=== PATIENT | female | born 1975 | race Caucasian/White ===

== ENCOUNTER 2017-09-15 16:12 | Emergency (ER) | payer SELFPAY ==
[2017-09-15 16:13] VITALS: BP 129/77; PULSE 87; RESP 20; TEMP 36.7; O2SAT 97; BMI 21.9
--- NOTE | 2017-09-15 16:22 | HMH.EDCP ---
ED Disposition Clinical Impression: Acute bronchitis, Tobacco use, Lung nodule seen on imaging study, Cough Disposition: Home, Self-Care Condition on Discharge: Fair Additional Instructions: 1- follow up with pcp in am on your lung nodule, this will need work up to exclude cancer. 2- z pack. 3- tessalon 4- motrin 5- stop smoking. 6- retrun if needed. Prescriptions: Benzonatate [Tessalon Perle 100mg Cap] 200 mg PO Q4HP PRN #30 cap PRN Reason: Cough Ibuprofen [Motrin 600mg Tablet] 600 mg PO Q6HP PRN #20 tab PRN Reason: Moderate Pain Azithromycin [Zithromax 250mg tab] 250 mg PO DIRECTED #6 tab Referrals: Jo Belle [Primary Care Provider] - - Critical Care Critical Care Time: No Attestation: On , the high probability of a clinically significant, sudden or life threatening deterioration of the following system(s) required my full and direct attention, intervention and personal management. The time I documented below is in addition to time spent performing reported procedures but includes the following listed in this critical care notation. Medical Decision Making Vital Signs: 09/15/17 16:13 Temperature 98.1 F Temperature Source Tympanic Pulse Rate [Left Radial] 87 Respiratory Rate 20 Blood Pressure [Right Arm] 129/77 Blood Pressure Mean [Right Arm] 94 Blood Pressure Source [Right Arm] Automatic Cuff Blood Pressure Position [Right Arm] Sitting 02 Sat by Pulse Oximetry 97 Oxygen Delivery Method Room Air Orders (Tests/Meds): ED MEDICATIONS Discontinued Medications Generic Name Dose Route Start Last Admin Trade Name Freq PRN Reason Stop Dose Admin Hydrocodone Bitart/Acetaminophen 1 tab 09/15/17 16:46 09/15/17 17:45 Pool 5/325mg Tablet PO 09/15/17 16:47 1 tab ONCE ONE Administration - Mango Inquiry Pt receiving controlled substance: No Mango was queried for this patient: No Medical Decision Making Narrative: The patient was given Lortab for pain. She has been coughing lately especially in the mornings. 1750 I received a fax from [facility] with the lab results which was negative troponin for myocardial injury. Also she did have a negative CT scan for pulmonary embolism. It was positive for 3 mm nodule in the right middle lobe. Patient was given copy of her CT scan to handle her primary care physician for follow-up purposes. She was informed that this can be cancer and the need to be followed up on. She was informed that she needs to stop smoking. We discussed differential diagnosis for other reasons of her chest pain, can be musculoskeletal pleurisy or shingles. She agreed to start on antibiotics use the nonsteroidal anti-inflammatories and follow-up with a primary care physician until she improves. Chest Pain HPI - General Stated Complaint: Pain in right shoulder pain, no accident - History of Present Illness HPI narrative: 42 years old white female smoker with no significant past medical history. Yesterday at 8 PM, She developed right paraspinal pain that moved to the front of her chest this morning at the right 2nd costosternal junction. She reports that the pain is worse upon standing and is better by leaning forward. She has no shortness of breath she has no palpitations except with anxiety. She denies having hemoptysis coffee-ground emesis bleeding per rectum or melanotic. She had a history of lumbar discectomy. I can hear her having repeated dry non productive cough. complaint: other Onset (ago): hour(s) Time: 08:00 Duration: constant Activity at onset: during rest, awoke with symptoms Pain location: other (Right thoracic paraspinal) Severity: moderate Quality: sharp Relieving factors: leaning forward Exacerbating factors: other (standing. ) Risk Factors for CAD: Smoking Treatments prior to or on arrival for Cardiac Chest Pain: other (She took ibuprofen. ) - Related Data Previous Rx's Medication Ins
--- NOTE | 2017-09-15 16:26 | ED_ITS ---
ED Disposition Clinical Impression: Acute bronchitis, Tobacco use, Lung nodule seen on imaging study, Cough Disposition: Home, Self-Care Condition on Discharge: Fair Additional Instructions: 1- follow up with pcp in am on your lung nodule, this will need work up to exclude cancer. 2- z pack. 3- tessalon 4- motrin 5- stop smoking. 6- retrun if needed. Prescriptions: Benzonatate [Tessalon Perle 100mg Cap] 200 mg PO Q4HP PRN #30 cap PRN Reason: Cough Ibuprofen [Motrin 600mg Tablet] 600 mg PO Q6HP PRN #20 tab PRN Reason: Moderate Pain Azithromycin [Zithromax 250mg tab] 250 mg PO DIRECTED #6 tab Referrals: Jo Belle [Primary Care Provider] - - Critical Care Critical Care Time: No Attestation: On , the high probability of a clinically significant, sudden or life threatening deterioration of the following system(s) required my full and direct attention, intervention and personal management. The time I documented below is in addition to time spent performing reported procedures but includes the following listed in this critical care notation. Medical Decision Making Vital Signs: 09/15/17 16:13 Temperature 98.1 F Temperature Source Tympanic Pulse Rate [Left Radial] 87 Respiratory Rate 20 Blood Pressure [Right Arm] 129/77 Blood Pressure Mean [Right Arm] 94 Blood Pressure Source [Right Arm] Automatic Cuff Blood Pressure Position [Right Arm] Sitting 02 Sat by Pulse Oximetry 97 Oxygen Delivery Method Room Air Orders (Tests/Meds): ED MEDICATIONS Discontinued Medications Generic Name Dose Route Start Last Admin Trade Name Freq PRN Reason Stop Dose Admin Hydrocodone Bitart/Acetaminophen 1 tab 09/15/17 16:46 09/15/17 17:45 [place]pler 5/325mg Tablet PO 09/15/17 16:47 1 tab ONCE ONE Administration - Mango Inquiry Pt receiving controlled substance: No Mango was queried for this patient: No Medical Decision Making Narrative: The patient was given Lortab for pain. She has been coughing lately especially in the mornings. 1750 I received a fax from [facility] with the lab results which was negative troponin for myocardial injury. Also she did have a negative CT scan for pulmonary embolism. It was positive for 3 mm nodule in the right middle lobe. Patient was given copy of her CT scan to handle her primary care physician for follow-up purposes. She was informed that this can be cancer and the need to be followed up on. She was informed that she needs to stop smoking. We discussed differential diagnosis for other reasons of her chest pain, can be musculoskeletal pleurisy or shingles. She agreed to start on antibiotics use the nonsteroidal anti-inflammatories and follow-up with a primary care physician until she improves. Chest Pain HPI - General Stated Complaint: Pain in right shoulder pain, no accident - History of Present Illness HPI narrative: 42 years old white female smoker with no significant past medical history. Yesterday at 8 PM, She developed right paraspinal pain that moved to the front of her chest this morning at the right 2nd costosternal junction. She reports that the pain is worse upon standing and is better by leaning forward. She has no shortness of breath she has no palpitations except with anxiety. She denies having hemoptysis coffee-ground emesis bleeding per rectum or melanotic
[2017-09-15 18:00] VITALS: BP 138/93; PULSE 69; RESP 20; TEMP 36.9
== END 2017-09-15 18:03 | disposition home or self-care (01) ==
PROVIDERS: Emergency Provider Emergency Medicine; Family Provider Family Medicine; PCP Physician Assistant
DX: J20.9 Acute bronchitis, unspecified (principal); R91.1 Solitary pulmonary nodule; F17.210 Nicotine dependence, cigarettes, uncomplicated; Z88.0 Allergy status to penicillin; Z88.2 Allergy status to sulfonamides
CPT/HCPCS: 99281

== ENCOUNTER → 2018-05-12 11:16 | Outpatient (REF) | payer OTHER, SELFPAY | LOC: LAB 11:16 | PROVIDERS: Visit Provider Podiatrist | DX: B35.1 Tinea unguium (principal); L60.8 Other nail disorders | CPT/HCPCS: 87102; 87206; 87220 ==

== ENCOUNTER 2020-11-19 06:51 | Emergency (ER) | payer SELFPAY ==
[2020-11-19 06:52] VITALS: BP 161/79; PULSE 96; RESP 18; TEMP 36.7; O2SAT 98; BMI 24.3
[2020-11-19 07:08] VITALS: BP 140/97; PULSE 96; O2SAT 99
--- NOTE | 2020-11-19 07:19 | CT_ITS ---
PROCEDURE INFORMATION: Exam: CT Abdomen And Pelvis With Contrast Exam date and time: 11/19/2020 7:19 AM Age: 45 years old Clinical indication: Generalized; Prior surgery; Surgery date: 6+ months; Surgery type: Tubal , ; Patient HX: Abdominal pain , vaginal bleeding x 6 months worse today TECHNIQUE: Imaging protocol: Computed tomography of the abdomen and pelvis with contrast. Radiation optimization: All CT scans at this facility use at least one of these dose optimization techniques: automated exposure control; mA and/or kV adjustment per patient size (includes targeted exams where dose is matched to clinical indication); or iterative reconstruction. Contrast material: ISOVUE; Contrast volume: 75 ml; Contrast route: IV; COMPARISON: [facility] CT abdomen pelvis wo con 05/29/2018 9:26 AM FINDINGS: Liver: 1.2 cm simple appearing cyst in the left lobe of the liver. Gallbladder and bile ducts: Normal. No calcified stones. No ductal dilation. Pancreas: Normal. No ductal dilation. Spleen: The spleen is mildly prominent. Adrenal glands: Normal. No mass. Kidneys and ureters: Normal. No hydronephrosis. Stomach and bowel: Unremarkable. No obstruction. No mucosal thickening. Appendix: No evidence of appendicitis. Intraperitoneal space: Unremarkable. No free air. No significant fluid collection. Vasculature: Unremarkable. No abdominal aortic aneurysm. Lymph nodes: Unremarkable. No enlarged lymph nodes. Urinary bladder: Unremarkable as visualized. Reproductive: Tubal ligation clips are present. There is a tampon present in the vagina. The uterus is mildly prominent. Approximately 2.5 cm mass that appears to project into the endometrium, possibly a submucosal fibroid. Bones/joints: Unremarkable. No acute fracture. Soft tissues: Unremarkable. IMPRESSION: 1. The uterus is mildly prominent. Approximately 2.5 cm mass that appears to project into the endometrium, possibly a submucosal fibroid. 2. Remainder of findings as described above.
[2020-11-19 07:30] VITALS: BP 124/79; PULSE 83
[2020-11-19 07:31] LABS: Microscopic, Urine URINE MICROSCOPIC (MICROSCOPIC)
[2020-11-19 07:35] LABS: Basophils # 0.1 K/mm3 (0-0.2); Basophils % 0.5 % (0.1-2.0); Eosinophils # 0.2 K/mm3 (0.0-0.4); Eosinophils % 2.8 % (0.1-12.0); Hematocrit 44.3 % (37.0-47.0); Hemoglobin 15.2 g/dL (12.2-16.2); Lymphocytes # 1.9 K/mm3 (0.7-4.5); Lymphocytes % 22.5 % (10-50); Mean Corpuscular HGB Conc 34.2 g/dL (31.8-35.4); Mean Corpuscular Hemoglobin 31.4 pg (27.0-31.2); Mean Corpuscular Volume 91.7 fl (81-99); Mean Platelet Volume 8.2 fl (7.4-10.4); Monocytes # 0.5 K/mm3 (0.1-1.0); Monocytes % 5.8 % (1.7-9.3); Neutrophils # 5.7 K/mm3 (1.8-7.8); Neutrophils % 68.3 % (37.0-80.0); Platelet Count 333 K/mm3 (142-424); Red Blood Count 4.83 M/mm3 (4.20-5.40); Red Cell Distribution Width 13.7 % (11.5-17.5); White Blood Count 8.4 K/mm3 (4.8-10.8)
[2020-11-19 07:36] LABS: Appearance,Urine CLEAR (Clear); Bilirubin,Urine Negative (Negative); Blood, Urine 3+ (Negative); Color,Urine YELLOW (Yellow); Glucose,Urine (UA) Negative (Negative); Ketones,Urine Negative (Negative); Leukocyte Esterase,Urine Negative (Negative); Nitrate,Urine Negative (Negative); Protein,Urine Negative (Negative); Specific Gravity, Urine >= 1.030 (1.005-1.030); Urobilinogen,Urine 0.2 EU/dl (0.2)
[2020-11-19 07:37] LABS: Urine Pregnancy, HCG Qual. Negative (Negative)
[2020-11-19 07:40] LABS: Alanine Aminotransferase 15 U/L (12-78); Albumin Level 4.6 g/dl (3.5-5.0); Albumin/Globulin Ratio 1.5 (1.1-1.8); Alkaline Phosphatase 68 U/L (38-126); Anion Gap 10.9 mEq/L (5-15); Aspartate Amino Transferase 29 U/L (14-36); Bilirubin,Total 0.6 mg/dl (0.2-1.3); Blood Urea Nitrogen 9 mg/dl (7-17); Calcium 9.7 mg/dl (8.4-10.2); Carbon Dioxide 26 mmol/L (22.0-30.0); Chloride 105 mmol/L (98-107); Creatinine Clearance Estimated 113 mL/min (50-200); Estimated Glomerular Filt Rate 90 ml/min (>60); GFR (African American) 109 ML/MIN (>60); Glucose 100 mg/dl (74-100); Potassium 3.9 mmoL/L (3.5-5.1); Sodium 138 mmol/L (136-145); Total Protein,Serum 7.6 g/dl (6.3-8.2)
[2020-11-19 07:45] LABS: C-Reactive Protein 0.6 mg/L (0-4)
[2020-11-19 07:48] LABS: Amorphous Sediment,Urine 1+ /lpf; Squamous Epithelial Cell,Urine Occasional #/hpf (0-5)
[2020-11-19 07:51] VITALS: BP 124/79; PULSE 79; O2SAT 99
--- NOTE | 2020-11-19 07:53 | PC.NURSE ---
Pt to rad.
--- NOTE | 2020-11-19 07:55 | HMH.EDUROGF ---
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 The time I documented below is in addition to time spent performing reported procedures but includes the following listed in this critical care notation. Medical Decision Making - Medical Records Medical records reviewed: Yes: I reviewed the patient's medical records. - Mango Inquiry Pt receiving controlled substance: No Vital Signs: 11/19/20 06:52 11/19/20 07:08 11/19/20 07:30 Temperature 98.1 F Temperature Source Oral Pulse Rate 96 H 83 Pulse Rate [Left Radial] 96 H Respiratory Rate 18 Blood Pressure 140/97 H 124/79 Blood Pressure [Right Arm] 161/79 H Blood Pressure Mean 95 Blood Pressure Mean [Right Arm] 106 Blood Pressure Source [Right Arm] Automatic Cuff Blood Pressure Position [Right Arm] Sitting 02 Sat by Pulse Oximetry 98 99 Oxygen Delivery Method Room Air 11/19/20 07:51 11/19/20 08:39 Temperature 98.3 F Temperature Source Oral Pulse Rate 79 71 Pulse Rate [Left Radial] Respiratory Rate 20 Blood Pressure 124/79 101/51 L Blood Pressure [Right Arm] Blood Pressure Mean Blood Pressure Mean [Right Arm] Blood Pressure Source [Right Arm] Blood Pressure Position [Right Arm] 02 Sat by Pulse Oximetry 99 Oxygen Delivery Method - Lab Data Lab results reviewed: Yes: I reviewed the patient's lab results. Lab Results 11/19/20 07:00: Urine Color Yellow, Urine Appearance Clear, Urine pH 6.0, Ur Specific Timbo >= 1.030, Urine Protein Negative, Urine Glucose (UA) Negative, Urine Ketones Negative, Urine Blood 3+, Urine Nitrate Negative, Urine Bilirubin Negative, Urine Urobilinogen 0.2, Ur Leukocyte Esterase Negative, Urine RBC 3-5, Urine WBC None, Ur Squamous Epith Cells Occasional, Amorphous Sediment 1+, Urine Bacteria None 11/19/20 07:00: Urine HCG, Qual Negative 11/19/20 07:09: WBC 8.4, RBC 4.83, Hgb 15.2, Hct 44.3, MCV 91.7, MCH 31.4 H, MCHC 34.2, RDW 13.7, Plt Count 333, MPV 8.2, Neut % (Auto) 68.3, Lymph % (Auto) 22.5, Steele % (Auto) 5.8, Eos % (Auto) 2.8, Baso % (Auto) 0.5, Neut # (Auto) 5.7, Lymph # (Auto) 1.9, Steele # (Auto) 0.5, Eos # (Auto) 0.2, Baso # (Auto) 0.1 11/19/20 07:09: Sodium 138, Potassium 3.9, Chloride 105, Carbon Dioxide 26, Anion Gap 10.9, BUN 9, Creatinine 0.70, Estimated Creat Clear 113, Estimated GFR 90, Est GFR ( Amer) 109, Glucose 100, Calcium 9.7, Total Bilirubin 0.6, AST 29, ALT 15, Alkaline Phosphatase 68, C-Reactive Protein 0.6, Total Protein 7.6, Albumin 4.6, Globulin 3.0, Albumin/Globulin Ratio 1.5 11/19/20 07:09: ESR 13 11/19/20 07:09: Procalcitonin < 0.030 Result diagrams: 11/19/20 07:09 11/19/20 07:09 Orders (Tests/Meds): ED MEDICATIONS Discontinued Medications Generic Name Dose Route Start Last Admin Trade Name Freq PRN Reason Stop Dose Admin Sodium Chloride 1,000 mls @ 999 mls/hr 11/19/20 07:30 11/19/20 07:35 Sod Chlor 0.9% 1000ml Bag IV 11/19/20 08:30 999 mls/hr .Q1H1M VISHNU Administration Iopamidol 75 ml 11/19/20 08:06 11/19/20 08:09 Iopamidol-370 (76%);100ml Bottle IV 11/19/20 08:07 75 ml ONCE ONE Administration Ketorolac Tromethamin
[2020-11-19 07:59] LABS: Erythrocyte Sedimentation Rate 13 mm/hr (0-20)
[2020-11-19 08:01] LABS: Procalcitonin < 0.030 ng/mL (0.0-2.0)
[2020-11-19 08:39] VITALS: BP 101/51; PULSE 71; RESP 20; TEMP 36.8; O2SAT 99
== END 2020-11-19 09:18 | disposition home or self-care (01) ==
PROVIDERS: Emergency Provider Emergency Medicine; PCP Physician Assistant
DX: N93.8 Other specified abnormal uterine and vaginal bleeding (principal); D25.0 Submucous leiomyoma of uterus; F17.210 Nicotine dependence, cigarettes, uncomplicated; Z88.0 Allergy status to penicillin; Z88.2 Allergy status to sulfonamides; Z88.5 Allergy status to narcotic agent
CPT/HCPCS: 74177; 80053; 81001; 81025; 84145; 85025; 85651; 86140; 99282; Q9967

== ENCOUNTER 2021-04-24 13:48 | Emergency (ER) | payer SELFPAY ==
[2021-04-24 13:50] VITALS: BP 124/83; PULSE 104; RESP 18; TEMP 36.9; O2SAT 95; BMI 25.0
--- NOTE | 2021-04-24 14:37 | HMH.EDUTC ---
[facility] [place] Impression: Nummular dermatitis Cellulitis Qualifiers: Site of cellulitis: extremity Site of cellulitis of extremity: lower extremity Laterality: left Qualified Code(s): L03.116 - Cellulitis of left lower limb Insect bite Qualifiers: Encounter type: initial encounter Site of insect bite: lower leg Laterality: left Qualified Code(s): S80.862A - Insect bite (nonvenomous), left lower leg, initial encounter Disposition: Home, Self-Care Condition on Discharge: Good Instructions: Cellulitis, DI for Insect Bites and Stings Additional Instructions: Keep the affected area clean and dry. Follow up with your regular doctor. Take the antibiotics as directed and apply the topical antibiotics as directed. Apply warm wet compresses to the affected area three or four times per day. GO TO THE ER FOR ANY WORSENING SYMPTOMS Follow up with your primary care doctor regarding this place on your skin. If it doesn't resolve with the medications you may need to be referred to a card grinder helper for further treatment. Prescriptions: Mupirocin [Bactroban 2% Ointment 22gm tube] 1 applicatio TP TID 7 Days #1 gm Transmission Status: Received by [id number] Betamethasone Dipropionate 1 applicatio TP BID 10 Days #15 gm Transmission Status: Received by [id number] cephALEXin [cephALEXin 500mg capsule] 500 mg PO Q6H 10 Days #40 cap Transmission Status: Received by [id number] Referrals: Jo Belle [Primary Care Provider] - Forms: Work/School Release Time of Disposition: 14:49 Medical Decision Making - Medical Records Medical records reviewed: No: I reviewed the patient's medical records. - Mango Inquiry Pt receiving controlled substance: No Vital Signs: 04/24/21 13:50 04/24/21 15:01 Temperature 98.5 F 98.5 F Temperature Source Oral Pulse Rate 104 H Pulse Rate [Right Brachial] 104 H Respiratory Rate 18 18 Blood Pressure 124/83 Blood Pressure [Right Arm] 124/83 Blood Pressure Mean [Right Arm] 96 Blood Pressure Source [Right Arm] Automatic Cuff Blood Pressure Position [Right Arm] Sitting 02 Sat by Pulse Oximetry 95 Oxygen Delivery Method Room Air Orders (Tests/Meds): ORDERS Category Date Time Status Wound Culture and Gram Stain Stat Micro 04/24/21 14:45 Results [facility] [place] - General Stated complaint: possible spider bite L leg Time Seen by Provider: 04/24/21 14:40 Mode of Arrival: Ambulatory Source of Information: Patient Limitations: No Limitations Description of Symptoms (Recalled from Triage Doc. by RN): PATIENT C/O POSSIBLE SPIDER BITE TO LEFT LEG X 4 DAYS. REDNESS NOTED TO AREA HEENT Symptoms (Recalled from RN notes): No Resp Symptoms (Recalled from RN notes): No Skin Symptoms (Recalled from RN notes): Yes MS Symptoms (Recalled from RN notes): No Functional Status (Recalled from RN notes): WNL - History of Present Illness Provider Complaint: She states that she has had a wound on her left calf for the past 2 days[address] She states the place has been painful and sore to the touch. She thinks that she was bit by a bug and it's getting infected. She denies any fever or chills. She denies a tick bite, but she has been outside a lot recently. - Related Data Previous Rx's Medication Instructions Recorded Betamethasone Dipropionate 1 applicatio TP BID 10 Days #15 gm 04/24/21 Mupirocin [Bactroban 2% Ointment 1 applicatio TP TID 7 Days #1 gm 04/24/21 22gm tube] cephALEXin [cephALEXin 500mg 500 mg PO Q6H 10 Days #40 cap 04/24/21 capsule] Allergies Allergy/AdvReac Type Severity Reaction Status Date / Time codeine [CODEINE] Allergy Unknown Verified 02/07/21 11:06 morphine [MORPHINE] Allergy Unknown Verified 02/07/21 11:06 Penicillins [PENICILLINS] Allergy Unknown Verified 02/07/21 11:06 Sulfa (Sulfonamide Allergy Unknown Verified 02/07/21 11:06 Antibiotics) [SULFA (SULFONAMIDE ANTIBIOTICS)] aspirin
[2021-04-24 15:01] VITALS: BP 124/83; PULSE 104; RESP 18; TEMP 36.9; O2SAT 95
== END 2021-04-24 15:06 | disposition home or self-care (01) ==
PROVIDERS: Emergency Provider Nurse Practitioner Family; PCP Physician Assistant
DX: L03.116 Cellulitis of left lower limb (principal); S80.862A Insect bite (nonvenomous), left lower leg, initial encounter; F17.210 Nicotine dependence, cigarettes, uncomplicated
CPT/HCPCS: 87070; 87205; 99202; G0463

== ENCOUNTER 2022-02-12 13:07 | Emergency (ER) | payer OTHER, SELFPAY ==
[2022-02-12 13:45] VITALS: BP 131/77; PULSE 76; RESP 18; TEMP 36.9; O2SAT 98; BMI 23.5
--- NOTE | 2022-02-12 13:45 | XR_ITS ---
FINAL REPORT CLINICAL HISTORY: pain FINDINGS: AP, lateral and oblique views of the right hand were obtained. There is no prior exam for comparison. A small calcification adjacent to the 2nd DIP joint favored to be chronic. There is no acute fracture or dislocation. The joint spaces are preserved. The soft tissues are normal. IMPRESSION: No acute osseous abnormality of the right hand. Reviewed, Interpreted and Dictated by Terra Rivera MD Transcribed by Roshni Mohamud Authenticated and [facility]
--- NOTE | 2022-02-12 14:28 | HMH.EDUTC ---
[facility] [place] Clinical Impression: Puncture wound of finger Qualifiers: Encounter type: initial encounter Qualified Code(s): S61.239A - Puncture wound without foreign body of unspecified finger without damage to nail, initial encounter Disposition: Home, Self-Care Condition on Discharge: Good Instructions: DI for Puncture Wound, Cephalexin Additional Instructions: Clean area well with antibacterial soap and water Apply topical antibiotic as prescribed Take oral antibiotics as prescribed Follow up with your Family Doctor immediately if any signs of infection such as drainage, redness or streaks Return if needed Straight to ER if any life threatening symptoms Prescriptions: Bacitracin [Bacitracin Oint 0.9GM UDP] 1 each TP Q8HP 10 Days #30 packet Transmission Status: Pending to [facility] cephALEXin [cephALEXin 500mg capsule*] 500 mg PO Q6H 7 Days #28 cap Transmission Status: Pending to [id number] Referrals: Provider,Referral, MD [Primary Care Provider] - As needed Time of Disposition: 14:43 Medical Decision Making - Mango Inquiry Pt receiving controlled substance: No Mango was queried for this patient: No Vital Signs: 02/12/22 13:45 Temperature 98.4 F Temperature Source Oral Pulse Rate [Right Brachial] 76 Respiratory Rate 18 Blood Pressure [Right Arm] 131/77 Blood Pressure Mean [Right Arm] 95 Blood Pressure Source [Right Arm] Automatic Cuff Blood Pressure Position [Right Arm] Sitting 02 Sat by Pulse Oximetry 98 Oxygen Delivery Method Room Air Orders (Tests/Meds): ORDERS Category Date Time Status Hand XR right minimum 3 views [XR hand RT min 3V] Stat Exams 02/12/22 13:45 Taken - Radiology Data #1 Image(s): Hand Image Reviewed: Yes I reviewed the patient's radiology image Preliminary Findings: No Fracture Seen No fracture noted No FB Medical Decision Narrative: Patient reports that she is allergic to PCN but has taken Cephalexin in the past without complications or reactions [facility] [place]PI - General Stated complaint: [id number] right index finger Time Seen by Provider: 02/12/22 14:15 Mode of Arrival: Ambulatory Source of Information: Patient Limitations: No Limitations Description of Symptoms (Recalled from Triage Doc. by RN): PATIENT STATES SHE WAS USING A SEWING MACHINE AND SEWED THROUGH HER RIGHT INDEX FINGER NAIL TODAY HEENT Symptoms (Recalled from RN notes): No Resp Symptoms (Recalled from RN notes): No Skin Symptoms (Recalled from RN notes): Yes MS Symptoms (Recalled from RN notes): No Functional Status (Recalled from RN notes): WNL - History of Present Illness Provider Complaint: Patient states that she was at home earlier using a sewing machine when the needle of the machine caught her finger and the needle went in the side of her right index fingernail and came out the pad of her finger States that she jerked and the needle broke and she had to pull out the broken piece States she was worried something may still be in there - Related Data Previous Rx's Medication Instructions Recorded fluconazole 150 mg tablet 150 mg PO DAILY 3 Days #3 tab 06/01/21 ketoconazole 2 % topical cream 1 applic TOPICAL BID #30 g 06/01/21 Bacitracin [Bacitracin Oint 0.9GM 1 each TP Q8HP 10 Days #30 packet 02/12/22 UDP] cephALEXin [cephALEXin 500mg 500 mg PO Q6H 7 Days #28 cap 02/12/22 capsule*] Allergies Allergy/AdvReac Type Severity Reaction Status Date / Time codeine [CODEINE] Allergy Unknown Verified 06/01/21 15:25 morphine [MORPHINE] Allergy Unknown Verified 06/01/21 15:25 Penicillins [PENICILLINS] Allergy Unknown Verified 06/01/21 15:25 Sulfa (Sulfonamide Allergy Unknown Verified 06/01/21 15:25 Antibiotics) [SULFA (SULFONAMIDE ANTIBIOTICS)] aspirin Allergy Verified 06/01/21 15:25 - Worker's Comp Is this a Worker's Comp case?: No [facility] History - Hepatitis A Screen Attestation statement:: This patient has been screened
[2022-02-12 14:44] VITALS: BP 131/77; PULSE 76; RESP 18; TEMP 36.9; O2SAT 98
== END 2022-02-12 14:50 | disposition home or self-care (01) ==
PROVIDERS: Emergency Provider Nurse Practitioner
DX: S61.330A Puncture wound without foreign body of right index finger with damage to nail, initial encounter (principal); Y93.D2 Activity, sewing; Z23 Encounter for immunization
CPT/HCPCS: 73130; 90471; 90715; 99212; G0463

== ENCOUNTER → 2022-04-03 14:25 | Outpatient (CLI) | payer OTHER, SELFPAY ==
--- NOTE | 2022-04-03 14:34 | US_ITS ---
FINAL REPORT CLINICAL HISTORY: Dysfunctional uterine bleeding FINDINGS: Transvaginal sonographic images of the pelvis were obtained. The uterus is enlarged and measures 11.2 x 5.6 x 6.9 cm. The endometrium measures 9 mm, which is within normal limits. There is a fibroid in the uterus measuring 2.4 cm. The right ovary measures 2.1 x 2.1 x 1.8 cm and left ovary measures 2.5 x 2.2 by 1.6 cm. Normal blood flow seen to the ovaries. There are small cysts or follicles present. There is no evidence of free fluid. IMPRESSION: Enlarged fibroid uterus. Small cysts or follicles in the bilateral ovaries. Reviewed, Interpreted and Dictated by Morgan Norris III, MD Transcribed by Roshni Mohamud Authenticated and [facility]
[2022-04-03 16:00] LABS: Basophils # 0.1 K/mm3 (0-0.2); Eosinophils # 0.1 K/mm3 (0.0-0.4); Eosinophils % 1.7 % (0.1-12.0); Hematocrit 41.5 % (37.0-47.0); Hemoglobin 13.7 g/dL (12.2-16.2); Lymphocytes # 2.1 K/mm3 (0.7-4.5); Lymphocytes % 24.5 % (10-50); Mean Corpuscular Hemoglobin 31.1 pg (27.0-31.2); Mean Corpuscular Volume 94.3 fl (81-99); Mean Platelet Volume 8.4 fl (7.4-10.4); Monocytes # 0.4 K/mm3 (0.1-1.0); Monocytes % 5.1 % (1.7-9.3); Neutrophils # 5.8 K/mm3 (1.8-7.8); Neutrophils % 67.7 % (37.0-80.0); Platelet Count 340 K/mm3 (142-424); Red Blood Count 4.41 M/mm3 (4.20-5.40); Red Cell Distribution Width 13.9 % (11.5-17.5); White Blood Count 8.6 K/mm3 (4.8-10.8)
[2022-04-03 16:54] LABS: Thyroid Stimulating Hormone 1.59 uIU/mL (0.465-4.68)
[2022-04-05 12:09] LABS: FSH 36.9 mIU/mL (.); Progesterone 0.4 ng/mL (.)
== END ==
LOC: RAD 14:26
PROVIDERS: Visit Provider Obstetrics & Gynecology
DX: N93.8 Other specified abnormal uterine and vaginal bleeding (principal)
CPT/HCPCS: 36415; 76830; 82670; 83001; 84144; 84443; 85025

== ENCOUNTER → 2022-05-19 10:03 | Outpatient (CLI) | payer OTHER, SELFPAY ==
[2022-05-19 11:02] LABS: Basophils # 0.1 K/mm3 (0-0.2); Basophils % 1.4 % (0.1-2.0); Eosinophils # 0.2 K/mm3 (0.0-0.4); Eosinophils % 2.4 % (0.1-12.0); Hematocrit 44.1 % (37.0-47.0); Hemoglobin 14.5 g/dL (12.2-16.2); Lymphocytes # 1.9 K/mm3 (0.7-4.5); Mean Corpuscular HGB Conc 32.9 g/dL (31.8-35.4); Mean Corpuscular Hemoglobin 31.1 pg (27.0-31.2); Mean Corpuscular Volume 94.7 fl (81-99); Mean Platelet Volume 8.6 fl (7.4-10.4); Monocytes # 0.4 K/mm3 (0.1-1.0); Monocytes % 5.6 % (1.7-9.3); Neutrophils # 3.8 K/mm3 (1.8-7.8); Neutrophils % 60.7 % (37.0-80.0); Platelet Count 324 K/mm3 (142-424); Red Blood Count 4.66 M/mm3 (4.20-5.40); Red Cell Distribution Width 13.3 % (11.5-17.5); White Blood Count 6.3 K/mm3 (4.8-10.8)
[2022-05-19 11:31] LABS: Alanine Aminotransferase 16 U/L (12-78); Albumin Level 4.4 g/dl (3.5-5.0); Albumin/Globulin Ratio 1.7 (1.1-1.8); Alkaline Phosphatase 84 U/L (38-126); Anion Gap 11.9 mEq/L (5-15); Aspartate Amino Transferase 27 U/L (14-36); Bilirubin,Total 0.4 mg/dl (0.2-1.3); Blood Urea Nitrogen 13 mg/dl (7-17); Calcium 9.5 mg/dl (8.4-10.2); Carbon Dioxide 31 mmol/L (22.0-30.0); Chloride 102 mmol/L (98-107); Estimated Glomerular Filt Rate 77 ml/min (>60); GFR (African American) 93 ML/MIN (>60); Globulin 2.6 g/dL (1.3-3.2); Glucose 89 mg/dl (74-100); Potassium 4.9 mmoL/L (3.5-5.1); Sodium 140 mmol/L (136-145)
[2022-05-19 11:54] LABS: HCG,Quantitative < 2 mIU/ml (0-5.42)
== END ==
LOC: LAB 10:04
PROVIDERS: Visit Provider Obstetrics & Gynecology
DX: Z01.812 Encounter for preprocedural laboratory examination (principal); N85.2 Hypertrophy of uterus
CPT/HCPCS: 36415; 80053; 84702; 85025

== ENCOUNTER 2022-05-21 06:22 | Observation (INO) | payer OTHER, SELFPAY ==
[2022-05-18 10:18] VITALS: BMI 24.4
[2022-05-21] VITALS (21 sets, daily range): BP systolic 118–154; BP diastolic 68–85; PULSE 62–109; RESP 14–18; TEMP 36.1–43; O2SAT 92–100
[2022-05-21 06:38] LABS: Coronavirus 19, PCR Not Detected (NotDetected); Influenza A, PCR Not Detected (NotDetected); Influenza B, PCR Not Detected (NotDetected)
--- NOTE | 2022-05-21 07:09 | P.PN_ITS ---
[facility] Medical History Lung nodule seen on imaging study Nummular dermatitis Shingles Surgical History H/O lumbar discectomy History of section History of tubal ligation Family History Other Asthma Cancer Thyroid disorder Social History Smoking Status: Current every day smoker tobacco type: cigarettes packs per day: 1 alcohol intake: never substance use type: denies use current occupational status: employed and other Travel in the last 8 weeks: None household members: family housing: house [facility] Anesthesia Checklist Patient Identification Patient Identification: Arm Band and Verbal (Name & ) Structural Data Admitted From: Home Planned Operative Procedure/s: [facility] Consent for Planned Operative Procedure(s) Verified: Yes NPO Status Verified Time NPO: 00:00 Chart Verification Results Verified: CBC and BMP Additional verifications Anesthesia Reactions: No Hx Blood Transfusions: No Blood Transfusion Reaction: No Airway Assessment C-Spine Mobility Assessed: Yes TMJ Mobility Assessed: Yes Dentition: Good Dentition Neurological Assessment Level of Consciousness: Awake Hx Seizures: No Numbness or tingling in extremities: No Anesthesia Plan Anesthesia Risk discussed: Yes Anesthesia Plan: Verified ASA Class: I Anesthesia Type: General
--- NOTE | 2022-05-21 07:35 | EXP.HP ---
History of Present Illness *Admission Date: 05/21/22 *Reason for visit:: Hysterectomy *History of present illness: 46 yo Heavy menses, + clots, + double protection Having 2 periods/month + night sweats + pelvic pain, greater in RLQ Serum labs normal Pap smear negative Pelvic ultrasound 04/03/22: Uterus 11.2x5.6x6.9cm ES 9mm 2.4cm fibroid R ovary 2.1x2.1x1.8cm L ovary 2.5x2.2x1.6cm Small ovarian follicles bilaterally No free fluid She desires definitive surgical management with hysterectomy Enlarged uterus unlikely to be responsive to endometrial ablation She has a history of 1 previous c section and 3 vaginal deliveries She has been counseled that she is a candidate for trial of TLH but has been advised that the procedure may need to be converted to abdominal hysterectomy given the large size of her uterus and potential for vesicouterine adhesions after previous c section She has been counseled that tobacco abuse is also a risk factor for adhesions, and has been advised to decrease/discontinue tobacco prior to surgery She has been counseled for ovarian preservation precluding any intra-operative findings that would warrant removal of one or both ovaries She is scheduled for TLH, possible BSO and cystoscopy, possible ANGELO, with the plan to remove fallopian tubes but plan to preserve ovaries PFSH PFSH Medical History Lung nodule seen on imaging study Nummular dermatitis Shingles Surgical History H/O lumbar discectomy History of section History of tubal ligation Family History Other Asthma Cancer Thyroid disorder Social History Smoking Status: Current every day smoker tobacco type: cigarettes packs per day: 1 alcohol intake: never substance use type: denies use current occupational status: employed and other Travel in the last 8 weeks: None household members: family housing: house Review of Systems Constitutional Constitutional: Reports system reviewed and no additional complaints, except as documented *Genitourinary Genitourinary: Reports menorrhagia and Reports pelvic pain Meds Home Medications and Allergies Home Medications Medication Instructions Recorded Confirmed Type medroxyprogesterone 10 mg tablet 20 mg PO DAILY PRN bleeding #40 04/16/22 05/18/22 Rx (Provera) tabs New Prescriptions to Start Prescriptions: Allergies Allergy/AdvReac Type Severity Reaction Status Date / Time codeine [CODEINE] Allergy Unknown Verified 05/15/22 08:32 Sulfa (Sulfonamide Allergy Unknown Verified 05/15/22 08:32 Antibiotics) [SULFA (SULFONAMIDE ANTIBIOTICS)] aspirin Allergy Verified 05/15/22 08:32 morphine [MORPHINE] AdvReac Unknown Vomiting Verified 05/15/22 08:56 Exam Data for Last 24 hours Vital signs and Labs for Last 24 Hours: Temp Pulse Resp BP Pulse Ox 97.0 F L 86 18 118/78 96 05/21/22 06:31 05/21/22 06:31 05/21/22 06:31 05/21/22 06:31 05/21/22 06:31 Laboratory Results - last 24 hr 05/21/22 06:33: SARS-CoV-2 (PCR) Not detected, Influenza A Untype (PCR) Not detected, Influenza Type B (PCR) Not detected I & O for Last 24 hours: Intake & Output 05/18/22 05/19/22 05/20/22 05/21/22 11:59 11:59 11:59 11:59 Weight 156 lb Constitutional Constitutional: no acute distress *Routine HEENT Exam Head: Present normocephalic Eye: Absent conjunctival icterus or scleral injection ENT: Present mucous membranes moist *Routine Neck Exam Neck: Present supple *Routine Respiratory Exam Respiratory: Present CTA bilaterally; Absent respiratory distress *Routine Cardiovascular Exam Cardiovascular: Present RRR *Routine Abdominal Exam Abdominal: Present soft; Absent tenderness or distended *Routine Rectal Exam Rectal
--- NOTE | 2022-05-21 08:26 | P.CONPHA_ITS ---
Pharmacy Intervention Comments: MEDICATION RECONCILIATION COMPLETED ON PATIENT USING EXTERNAL FILL HISTORY FROM PHARMACY AND LIST FROM WINDOW AND DOOR INSTALLER OFFICE. -FRANSICO ZAFARD
--- NOTE | 2022-05-21 08:26 | HMH.PHAINT1 ---
Pharmacy Intervention Comments: MEDICATION RECONCILIATION COMPLETED ON PATIENT USING EXTERNAL FILL HISTORY FROM PHARMACY AND LIST FROM CONTINUOUS MINING MACHINE COAL MINER OFFICE. -FRANSICO ZAFARD
--- NOTE | 2022-05-21 10:51 | SUR.OPER ---
1050- pt family updated of pt current status via alex vaughan in preop
--- NOTE | 2022-05-21 11:42 | P.PNANES_ITS ---
[facility] Anesthesia Record Part I Anesthesia Record I Intake, IV Amount: 900 Estimated blood loss (mL): 100 Urine output (mL): 0 Blood Pressure: 143/70 SaO2: 94 Pulse Rate: 109 Respiratory Rate: 18 Temperature: 98.9 F Patient is:: Drowsy and Oral/Nasal airway Stable to PACU at:: 11:40
--- NOTE | 2022-05-21 11:59 | EXP.OP.NOTE ---
Date of procedure: 05/21/22 Pre-op Diagnosis:: 1. Heavy Menstrual Bleeding 2. Dysfunctional Uterine Bleeding 3. Pelvic Pain 4. Enlarged Uterus 5. Uterine Fibroid 6. History of Tubal Ligation 7. Previous C Section Post-op Diagnosis:: Same Procedure performed:: Total Laparoscopic Hysterectomy, Bilateral Salpingectomy Cystoscopy Surgeon:: Maite Craft MD Furniture Mover(s):: Ximena Yang DO INTRAMURAL DIRECTOR:: Martin Castillo Anesthesia: GETA Estimated blood loss (mL): 100 Operative findings:: Grossly enlarged uterus Normal appearing ovaries bilaterally Bilateral fallopian tubes normal appearing with Filshie Clips in place Operative note:: The patient was taken to the operating room and general anesthesia was administered. She was prepped/draped in lithotomy position. An indwelling coffey catheter was inserted into the bladder with clear urine draining. An Advincula uterine manipulator was placed without difficulty; the uterus sounded to 8cm and the colpotomy cup covered the cervix snuggly. The uterine balloon was filled with 10cc of air and the vaginal balloon was filled with 70cc of air. Gloves were changed and attention was turned to the abdomen. The skin below the umbilical site was injected with 0.5% marcaine. A 2cm skin incision was made in the umbilical fold and the verees needle was inserted through the peritoneum and into the abdominal cavity in standard fashion. The abdomen was insufflated with CO2 gas. An 11mm non-bladed trocar was inserted directly into the abdominal cavity under direct visualization; no intra-abdominal injuries occurred during entry into the abdominal cavity, as confirmed visually with the laparoscope. Right and left lower quadrant incision sites were injected with 0.5% marcaine. A 2cm skin incision was made in the right lower quadrant and an 11mm non-bladed trocar was inserted under direct visualization, without complication. A 2 cm incision was made in the LLQ and an 11mm non-bladed trocar was placed in the LLQ under direct visualization and without complication. The uterus was elevated out of the pelvis in order to better visualize the anatomy, and the bowel was swept cephalad with a blunt probe. A survey of the pelvis and abdomen revealed the findings noted above. The left fallopian tube was grasped at fimbriated end. Ligasure Hook was used to transect the left mesosalpinx, mesoovarium and ovarian ligament. Left fallopian tube was transected at the cornua of the uterus and removed from the body through the 11mm trocar. The same procedure was performed for the right fallopian tube. Both ovaries were left in situ. The anterior leaf of broad ligament was dissected medial on either side, and the bladder was dissected off the lower uterine segment utilizing both blunt and sharp dissection. Mild vesico-uterine adhesions were encountered with history of previous c section, but dissection of these adhesions was uncomplicated, and assisted by intermittent retrograde fill of bladder with sterile water. Once the bladder was appropriately dissected off the lower uterine segment, the bilateral uterine arteries were clamped and cut utilizing the Ligasure. Transection was carried through the cardinal ligament bilaterally, with excellent hemostasis. At the level of the LORETA ring, the vaginal vault was incised circumferentially with the Ligasure Monopolar hook. The uterus and cervix were pulled into the vagina to hold pneumoperitoneum, but ultimately were removed because of insufficient size. Sterile laparotomy sponges were placed inside a sterile glove, which was placed in the vagina to hold the pneumoperitoneum. The vaginal vault was closed with 0 V-Lock barbed suture. The length of this suture was problematic from laparoscopic approach and obscuring adequate visualization, so the uterus was removed and the remainder of the cuff was closed with a second 0 V-Lock barbed suture from vaginal aspect. Gloves were changed and the ab
--- NOTE | 2022-05-21 15:30 | PC.NURSE ---
Pt assisted x1 to the bathroom. Pt tolerated well, education given on pericare. pt assisted back to bed
--- NOTE | 2022-05-21 20:15 | PC.NURSE ---
report given to Bryan RN
[2022-05-22 00:11] VITALS: BP 113/58; PULSE 75; RESP 18; TEMP 37.3; O2SAT 99
[2022-05-22 04:21] VITALS: BP 108/65; PULSE 78; RESP 17; TEMP 37.3
--- NOTE | 2022-05-22 04:23 | PC.NURSE ---
NURSING REASSESSMENT, PT HAS RESTED WELL THROUGHOUT SHIFT, REMAINS ALERT AND ORIENTEDX 4, PAIN HAS BEEN WELL CONTROLLED WITH SCHEDULED AND PRN MEDICATION SEE EMAR, PT CURRENTLY DENIES ANY PAIN OR DISCOMFORT, PT HAS BS X 4 QUADS, DENIES ANY N/V, PASSING SMALL AMOUNTS OF FLATUS AND VOIDING WITHOUT DIFFICULTY, DRESSINGS TO THREE LAP SITES REMAIN CLEAN DRY AND INTACT AND ONLY SCANT VAGINAL BLEEDING NOTED, VSS, FAMILY MEMBER AT BEDSIDE, NO NEEDS AT THIS TIME, CALL LIGHT WITHIN REACH, WILL CONTINUE TO MONITOR
[2022-05-22 07:06] LABS: Hematocrit 36.8 % (37.0-47.0); Hemoglobin 12.2 g/dL (12.2-16.2)
[2022-05-22 07:37] LABS: Anion Gap 11.8 mEq/L (5-15); Blood Urea Nitrogen 11 mg/dl (7-17); Calcium 8.6 mg/dl (8.4-10.2); Carbon Dioxide 28 mmol/L (22.0-30.0); Chloride 102 mmol/L (98-107); Creatinine Clearance Estimated 86 mL/min (50-200); Estimated Glomerular Filt Rate 67 ml/min (>60); GFR (African American) 81 ML/MIN (>60); Glucose 100 mg/dl (74-100); Potassium 3.8 mmoL/L (3.5-5.1); Sodium 138 mmol/L (136-145)
--- NOTE | 2022-05-22 07:43 | P.PNANES_ITS ---
[facility] Anesthesia Record Part II Anesthesia Record Part II Discharge Time: 12:10 Destination: Obstetric PACU nurse assessment reviewed?: Yes Patient Condition:: Good Anesthesia Complications:: None Swallowing reflex intact?: Yes Cyanosis?: No Blood Pressure: 145/84 Pulse Rate: 97 Temperature: 98.9 F Mental Status: Alert & Oriented Pain level:: 0 Nausea and/or vomitting:: None Intake, IV Amount: 0
[2022-05-22 07:44] VITALS: BP 145/84; PULSE 97; TEMP 37.2
[2022-05-22 08:46] VITALS: BP 109/65; PULSE 67; RESP 18; TEMP 36.8; O2SAT 99
[2022-05-22 08:48] VITALS: O2SAT 99
--- NOTE | 2022-05-22 08:57 | EXP.DC.SUM ---
General Admission date:: 05/21/22 Discharge date: 05/22/22 HPI HPI HPI: 46 yo Heavy menses, + clots, + double protection Having 2 periods/month + night sweats + pelvic pain, greater in RLQ Serum labs normal Pap smear negative Pelvic ultrasound 04/03/22: Uterus 11.2x5.6x6.9cm ES 9mm 2.4cm fibroid R ovary 2.1x2.1x1.8cm L ovary 2.5x2.2x1.6cm Small ovarian follicles bilaterally No free fluid She desires definitive surgical management with hysterectomy Enlarged uterus unlikely to be responsive to endometrial ablation She has a history of 1 previous c section and 3 vaginal deliveries She has been counseled that she is a candidate for trial of TLH but has been advised that the procedure may need to be converted to abdominal hysterectomy given the large size of her uterus and potential for vesicouterine adhesions after previous c section She has been counseled that tobacco abuse is also a risk factor for adhesions, and has been advised to decrease/discontinue tobacco prior to surgery She has been counseled for ovarian preservation precluding any intra-operative findings that would warrant removal of one or both ovaries She is scheduled for TLH, possible BSO and cystoscopy, possible ANGELO, with the plan to remove fallopian tubes but plan to preserve ovaries Hospital Course Hospital Course Hospital Course: Postop course uncomplicated She is discharged home on POD #1, in stable condition She is ambulating and voiding without difficulty She is tolerating a regular diet Pain control has been sufficient Postop labs reviewed and appropriate She will f/u in office in 2 weeks Exam Data for Last 24 hours Vital signs and Labs for Last 24 Hours: Temp Pulse Resp BP Pulse Ox 98.2 F 67 18 109/65 L 99 05/22/22 08:46 05/22/22 08:46 05/22/22 08:46 05/22/22 08:46 05/22/22 08:48 Laboratory Results - last 24 hr 05/22/22 06:43: Hgb 12.2, Hct 36.8 L 05/22/22 06:43: Sodium 138, Potassium 3.8 D, Chloride 102, Carbon Dioxide 28, Anion Gap 11.8, BUN 11, Creatinine 0.90, Estimated Creat Clear 86, Estimated GFR 67, Est GFR ( Amer) 81, Glucose 100, Calcium 8.6 I & O for Last 24 hours: Intake & Output 05/19/22 05/20/22 05/21/22 05/22/22 11:59 11:59 11:59 11:59 Intake Total 900 / 900 0 / 0 Output Total 0 / 0 Balance 900 / 900 0 / 0 Constitutional Constitutional: no acute distress *Routine HEENT Exam Head: Present normocephalic Eye: Absent conjunctival icterus or scleral injection ENT: Present mucous membranes moist *Routine Neck Exam Neck: Present supple *Routine Respiratory Exam Respiratory: Present CTA bilaterally *Routine Cardiovascular Exam Cardiovascular: Present RRR *Routine Abdominal Exam Abdominal: Present soft; Absent distended Comments: mild abdominal tenderness, appropriate for postop status *Routine Rectal Exam Patient deferred: visual exam and digital exam *Routine Exam Patient deferred: external exam *Routine Extremities Exam Extremities: Present edema *Routine Skin Exam Skin: Present intact and dry Comments: Incisions intact without erythema or purulent drainage *Routine Neurological Exam Neurological: Present alert and oriented X3 Routine Psychiatric Exam Psychiatric: Present normal affect; Absent depressed Results Data Completed and Pending Labs on day of discharge: Labs from last 24 hours 05/22/22 05/22/22 06:43 06:43 Hgb 12.2 Hct 36.8 L Sodium 138 Potassium 3.8 D Chloride 102 Carbon Dioxide 28 Anion Gap 11.8 BUN 11 Creatinine 0.90 Estimated Creat Clear 86 Estimated GFR 67 Est GFR ( Amer) 81 Glucose 100 Calcium 8.6 DS: Diagnosis Discharge Diagnosis (1) Menorrhagia with irregular cycle: Status: Acute (2) Dysfunctional uterine bleeding: Status: Acute (3) Pelvic pain in female: Status: Acute (4) Enlarged uterus: Status: Acute (5) Uterine fibroid: Status: Acute (6) Hi
--- NOTE | 2022-05-23 12:34 | CARE MANAGER ---
Attempted post-discharge phone interview, no answer.
== END 2022-05-22 10:00 | disposition home or self-care (01) ==
LOC: OB 06:22
PROVIDERS: Admitting Provider Obstetrics & Gynecology; PCP Obstetrics & Gynecology; Visit Provider Obstetrics & Gynecology
PROC: (CPT 58552; principal; 2022-05-21 07:30)
DX: N85.2 Hypertrophy of uterus (principal); D25.0 Submucous leiomyoma of uterus; N92.1 Excessive and frequent menstruation with irregular cycle; R10.2 Pelvic and perineal pain; F17.210 Nicotine dependence, cigarettes, uncomplicated
CPT/HCPCS: 58552; 36415; 80048; 85014; 85018; 96374; C9803; G0378; J2405; U0003; U0005

== ENCOUNTER → 2022-07-23 15:06 | Outpatient (CLI) | payer BC, SELFPAY ==
[2022-07-23 19:32] LABS: Basophils # 0.1 K/mm3 (0-0.2); Basophils % 1.1 % (0.1-2.0); Eosinophils # 0.4 K/mm3 (0.0-0.4); Eosinophils % 6.1 % (0.1-12.0); Hematocrit 43.2 % (37.0-47.0); Hemoglobin 14.7 g/dL (12.2-16.2); Lymphocytes # 1.2 K/mm3 (0.7-4.5); Lymphocytes % 19.5 % (10-50); Mean Corpuscular HGB Conc 34.1 g/dL (31.8-35.4); Mean Corpuscular Hemoglobin 31.2 pg (27.0-31.2); Mean Corpuscular Volume 91.6 fl (81-99); Monocytes # 0.4 K/mm3 (0.1-1.0); Monocytes % 7.2 % (1.7-9.3); Neutrophils # 3.9 K/mm3 (1.8-7.8); Neutrophils % 66.1 % (37.0-80.0); Platelet Count 296 K/mm3 (142-424); Red Blood Count 4.71 M/mm3 (4.20-5.40)
[2022-07-23 19:48] LABS: Alanine Aminotransferase 21 U/L (12-78); Albumin Level 4.3 g/dl (3.5-5.0); Albumin/Globulin Ratio 1.5 (1.1-1.8); Alkaline Phosphatase 90 U/L (38-126); Aspartate Amino Transferase 33 U/L (14-36); Bilirubin,Total 0.4 mg/dl (0.2-1.3); Blood Urea Nitrogen 10 mg/dl (7-17); Calcium 9.1 mg/dl (8.4-10.2); Carbon Dioxide 26 mmol/L (22.0-30.0); Chloride 104 mmol/L (98-107); Chol/HDL Ratio 7.1 (1-3.5); Cholesterol 226 mg/dl (140-200); Estimated Glomerular Filt Rate 67 ml/min (>60); GFR (African American) 81 ML/MIN (>60); Globulin 2.9 g/dL (1.3-3.2); Glucose 102 mg/dl (74-100); HDL Cholesterol 32 mg/dl (40-60); Sodium 137 mmol/L (136-145); Total Protein,Serum 7.2 g/dl (6.3-8.2); Triglycerides 334 mg/dl (30-150); VLDL Cholesterol 67 mg/dL (0-40)
[2022-07-23 19:54] LABS: C-Reactive Protein 14.6 mg/L (0-4)
[2022-07-23 20:05] LABS: Erythrocyte Sedimentation Rate 21 mm/hr (0-20)
[2022-07-23 20:18] LABS: Thyroid Stimulating Hormone 1.27 uIU/mL (0.465-4.68)
[2022-07-25 13:33] LABS: Anti-Cyclic Citrullinated Pept 51 units (0-19)
[2022-07-25 14:52] LABS: Anti-Centromere B Antibodies <0.2 AI (0.0-0.9); Anti-DNA (DS) Ab Qn 1 IU/mL (0-9); Anti-Jo-1 <0.2 AI (0.0-0.9); Anti-Smith Antibody <0.2 AI (0.0-0.9); Antichromatin Antibodies <0.2 AI (0.0-0.9); Antiscleroderma-70 Antibodies <0.2 AI (0.0-0.9); RNP Antibodies <0.2 AI (0.0-0.9); Sjogren's Anti-SS-A <0.2 AI (0.0-0.9); Sjogren's Anti-SS-B <0.2 AI (0.0-0.9)
[2022-08-01 22:59] LABS: Rheumatoid Factor IGA 8; Rheumatoid Factor IGM < 7
== END ==
PROVIDERS: PCP Student in an Organized Health Care Education/Training Program; Visit Provider Student in an Organized Health Care Education/Training Program
DX: R21 Rash and other nonspecific skin eruption (principal); J02.9 Acute pharyngitis, unspecified
CPT/HCPCS: 80053; 80061; 84443; 85025; 85651; 86140; 86200; 86225; 86235; 86431; 87070

== ENCOUNTER → 2022-08-25 09:19 | Outpatient (CLI) | payer BC, SELFPAY | PROVIDERS: PCP Student in an Organized Health Care Education/Training Program; Visit Provider Physician Assistant | DX: R21 Rash and other nonspecific skin eruption (principal) | CPT/HCPCS: 36415 ==

== ENCOUNTER → 2022-09-06 07:09 | Outpatient (CLI) | payer BC, SELFPAY ==
[2022-09-06 07:47] LABS: Basophils # 0.1 K/mm3 (0-0.2); Basophils % 1.3 % (0.1-2.0); Eosinophils # 0.2 K/mm3 (0.0-0.4); Eosinophils % 2.8 % (0.1-12.0); Hematocrit 44.1 % (37.0-47.0); Hemoglobin 15.2 g/dL (12.2-16.2); Lymphocytes # 1.9 K/mm3 (0.7-4.5); Lymphocytes % 23.6 % (10-50); Mean Corpuscular HGB Conc 34.4 g/dL (31.8-35.4); Mean Corpuscular Hemoglobin 31.7 pg (27.0-31.2); Mean Corpuscular Volume 92.3 fl (81-99); Mean Platelet Volume 8.9 fl (7.4-10.4); Monocytes # 0.5 K/mm3 (0.1-1.0); Monocytes % 6.4 % (1.7-9.3); Neutrophils # 5.2 K/mm3 (1.8-7.8); Neutrophils % 65.9 % (37.0-80.0); Platelet Count 327 K/mm3 (142-424); Red Blood Count 4.78 M/mm3 (4.20-5.40); Red Cell Distribution Width 13.9 % (11.5-17.5)
== END ==
PROVIDERS: PCP Student in an Organized Health Care Education/Training Program; Visit Provider Student in an Organized Health Care Education/Training Program
DX: D72.829 Elevated white blood cell count, unspecified (principal)
CPT/HCPCS: 36415; 85025

== ENCOUNTER 2022-11-06 04:41 | Emergency (ER) | payer BC, SELFPAY ==
[2022-11-06 04:42] VITALS: BP 148/84; PULSE 94; RESP 15; TEMP 36.4; O2SAT 100; BMI 25.8
[2022-11-06 04:46] VITALS: BMI 25.8
--- NOTE | 2022-11-06 04:47 | XR_ITS ---
PROCEDURE INFORMATION: Exam: XR Right Forearm Exam date and time: 11/06/2022 4:52 AM Age: 47 years old Clinical indication: Injury or trauma; Fall; Blunt trauma (contusions or hematomas); Arm, lower; Right; Additional info: Fall 11/02, swelling and pain TECHNIQUE: Imaging protocol: Radiologic exam of the right forearm. Views: 2 views. COMPARISON: No relevant prior studies available. FINDINGS: Bones/joints: No acute fracture. No dislocation. Soft tissues: Unremarkable. IMPRESSION: No fracture.
--- NOTE | 2022-11-06 04:47 | XR_ITS ---
PROCEDURE INFORMATION: Exam: XR Right Wrist Exam date and time: 11/06/2022 4:51 AM Age: 47 years old Clinical indication: Injury or trauma; Fall; Blunt trauma (contusions or hematomas); Wrist; Right; Additional info: Fall 11/02, swelling and pain TECHNIQUE: Imaging protocol: Radiologic exam of the right wrist. Views: 3 or more views. COMPARISON: CR XR HAND RT MIN 3V 02/12/2022 1:40 PM FINDINGS: Bones/joints: No acute fracture. No dislocation. Soft tissues: Unremarkable. IMPRESSION: No fracture. If pain persists, suggest splinting and follow up radiographs in 7-10 days.
--- NOTE | 2022-11-06 04:48 | XR_ITS ---
PROCEDURE INFORMATION: Exam: XR Left Wrist Exam date and time: 11/06/2022 4:49 AM Age: 47 years old Clinical indication: Injury or trauma; Fall; Blunt trauma (contusions or hematomas); Wrist; Left; Additional info: Fall 11/02 pain and bruising TECHNIQUE: Imaging protocol: Radiologic exam of the left wrist. Views: 3 or more views. COMPARISON: No relevant prior studies available. FINDINGS: Bones/joints: No acute fracture. No dislocation. Soft tissues: Unremarkable. IMPRESSION: No fracture. If pain persists, suggest splinting and follow up radiographs in 7-10 days.
--- NOTE | 2022-11-06 06:01 | PC.NURSE ---
at bedside to review xray results
--- NOTE | 2022-11-06 06:02 | HMH.EDUPEXT ---
Discharge Plan Disposition Patient Disposition: Home, Self-Care Chief Complaint: Extremity Injury, Upper Prescriptions Prescriptions: No Action simvastatin 10 mg tablet 10 mg PO DAILY Referrals Follow up/Referrals: Juanis Escoto PA [Primary Care Provider] - See instructions Clinical Impressions Clinical Impression: Sprain and strain of wrist Instructions Patient Instructions: DI for Wrist Strain Discharge ED Provider: Sydney (ED),Adonis Carty Upper Extremity HPI General Chief Complaint: Extremity Injury, Upper Stated Complaint: Right wrist pain; AO 11/02/221999 Time Seen by Provider: 11/06/22 06:02 Mode of Arrival: Family Vehicle Source of Information: Patient and Medical Record Limitations: No Limitations Description of Symptoms (Recalled from ER Triage Doc. by RN): 47 yo female presents with cc of right wrist pain following an injury 4 days ago. She reports falling several times and injuring both wrists while roller skating with her grandkids. Additionally states that while the left wrist remains sore and bruised, the right one is aching unbearably despite tyl/motrin/ice/heat and wrapping it. History of Present Illness HPI narrative: after falling has bilat wrist pain despite otc MD complaint: injury to: left, right and wrist Onset (ago): day(s) Other Extremity Injury: Bilateral: wrist Other injuries: none Handedness: right Place: other (skating) Severity: moderate Context: fall Associated symptoms: denies other symptoms Related Data Home Medications Medication Instructions Recorded Confirmed simvastatin 10 mg tablet 10 mg PO DAILY Cholesterol 11/06/22 11/06/22 Allergies Allergy/AdvReac Type Severity Reaction Status Date / Time Penicillins Allergy Mild Verified 11/06/22 04:52 codeine [CODEINE] Allergy Unknown Verified 11/06/22 04:52 Sulfa (Sulfonamide Allergy Unknown Verified 11/06/22 04:52 Antibiotics) [SULFA (SULFONAMIDE ANTIBIOTICS)] aspirin Allergy Verified 11/06/22 04:52 morphine [MORPHINE] AdvReac Unknown Vomiting Verified 11/06/22 04:52 [facility] Disclaimer: The information contained in this section may have been updated after the patient was seen, as this information can be updated by other users. Medical History (Updated 11/06/22 @ 06:07 by Adonis Grimes (ED), ) Lung nodule seen on imaging study Nummular dermatitis Shingles Surgical History (Updated 07/02/22 @ 10:59 by Maite Craft MD) H/O lumbar discectomy History of section History of tubal ligation S/P laparoscopic hysterectomy Family History Other Asthma Cancer Thyroid disorder Social History Smoking Status: Unknown if ever smoked alcohol intake: never substance use type: denies use current occupational status: employed and other Travel in the last 8 weeks: None household members: family housing: house ROS Obtained: Yes All systems reviewed & no additional complaints except as documented Physical Exam General General appearance: alert Head Head exam: normocephalic Eye Eye exam: Present PERRL and EOMI ENT ENT exam: Present mucous membranes moist Neck Neck exam: Present trachea midline Respiratory Respiratory exam: Absent respiratory distress Cardiovascular Cardiovascular exam: Present regular rate Expanded Upper Extremity Exam Left: Forearm/Wrist exam: Present tenderness; Absent full ROM or tenderness over anatomical snuff box Neurosensory exam: Normal radial nerve Vascular exam: Normal radial pulse Right: Forearm/Wrist exam: Present tenderness, swelling and tenderness over anatomical snuff box; Absent full ROM Vascular exam: Normal radial pulse Neurological Exam Neurological exam: Present alert, oriented X3 and CN II-XII intact Psychiatric Psychiatric exam: Present normal affect Skin Skin exam: Abs
[2022-11-06 06:03] VITALS: BP 140/80; PULSE 82; RESP 17; TEMP 36.6; O2SAT 99
== END 2022-11-06 06:10 | disposition home or self-care (01) ==
PROVIDERS: Emergency Provider Emergency Medicine; PCP Student in an Organized Health Care Education/Training Program
DX: S63.501A Unspecified sprain of right wrist, initial encounter (principal); V00.121A Fall from non-in-line roller-skates, initial encounter
CPT/HCPCS: 29125; 73090; 73110; 99283

== ENCOUNTER → 2022-12-25 10:22 | Outpatient (CLI) | payer BC, SELFPAY ==
--- NOTE | 2022-12-25 10:26 | XR_ITS ---
FINAL REPORT CLINICAL HISTORY: lt hip pain FINDINGS: LEFT HIP: Two views of the left hip demonstrate no acute fracture or dislocation. The joint spaces appear normal. The visualized bony structures are well aligned. No soft tissue abnormality is seen. IMPRESSION: No acute bony abnormality. Reviewed, Interpreted and Dictated by Naveed Alcala MD Transcribed by Chelsea Antoine Authenticated and [facility]
== END ==
LOC: RAD 10:23
PROVIDERS: PCP Student in an Organized Health Care Education/Training Program; Visit Provider Orthopaedic Surgery
DX: M25.552 Pain in left hip (principal)
CPT/HCPCS: 73502

== ENCOUNTER → 2023-03-12 11:21 | Outpatient (CLI) | payer BC, SELFPAY ==
--- NOTE | 2023-03-12 11:24 | XR_ITS ---
FINAL REPORT TECHNIQUE: Chest PA & Lateral CLINICAL HISTORY: wheezing, cp COMPARISON: None FINDINGS: 2 views of the chest were performed. The heart size is normal. The mediastinum is within normal limits. There is no acute cardiopulmonary process. There are no pleural effusions. There is no pneumothorax. The bony thorax appears intact. IMPRESSION: No acute cardiopulmonary process. Reviewed, Interpreted and Dictated by Rodriguez Michelle MD Transcribed by Juliana Infante Authenticated and [facility]
== END ==
LOC: RAD 11:22
PROVIDERS: PCP Student in an Organized Health Care Education/Training Program; Visit Provider Student in an Organized Health Care Education/Training Program
DX: R06.2 Wheezing (principal); R07.81 Pleurodynia
CPT/HCPCS: 71046

== ENCOUNTER → 2023-03-18 23:38 | Outpatient (CLI) | payer BC, SELFPAY | PROVIDERS: PCP Student in an Organized Health Care Education/Training Program; Visit Provider Student in an Organized Health Care Education/Training Program | DX: R06.02 Shortness of breath (principal); R07.89 Other chest pain; R05.9 Cough, unspecified | CPT/HCPCS: 87635 ==

== ENCOUNTER → 2023-04-17 11:29 | Outpatient (CLI) | payer BC, SELFPAY ==
[2023-04-17 12:30] LABS: Hemoglobin A1C 5.1 % (4.0-6.0)
[2023-04-17 12:59] LABS: Alanine Aminotransferase 19 U/L (12-78); Albumin Level 4.7 g/dl (3.5-5.0); Albumin/Globulin Ratio 1.6 (1.1-1.8); Alkaline Phosphatase 69 U/L (38-126); Anion Gap 13.6 mEq/L (5-15); Aspartate Amino Transferase 22 U/L (14-36); Bilirubin,Total 0.3 mg/dl (0.2-1.3); Blood Urea Nitrogen 10 mg/dl (7-17); Carbon Dioxide 28 mmol/L (22.0-30.0); Chloride 106 mmol/L (98-107); Chol/HDL Ratio 6.7 (1-3.5); Cholesterol 248 mg/dl (140-200); Estimated Glomerular Filt Rate 67 ml/min (>60); GFR (African American) 81 ML/MIN (>60); Glucose 94 mg/dl (74-100); HDL Cholesterol 37 mg/dl (40-60); Potassium 4.6 mmoL/L (3.5-5.1); Sodium 143 mmol/L (136-145); Total Protein,Serum 7.7 g/dl (6.3-8.2); Triglycerides 353 mg/dl (30-150); VLDL Cholesterol 71 mg/dL (0-40)
[2023-04-17 13:09] LABS: Direct LDL Cholesterol 131.76 mg/dL (100-129)
== END ==
PROVIDERS: PCP Student in an Organized Health Care Education/Training Program; Visit Provider Obstetrics & Gynecology
DX: E34.9 Endocrine disorder, unspecified (principal); N39.0 Urinary tract infection, site not specified
CPT/HCPCS: 36415; 80053; 80061; 83036; 87086

== ENCOUNTER → 2023-04-17 23:06 | Outpatient (CLI) | payer BC, SELFPAY | PROVIDERS: PCP Student in an Organized Health Care Education/Training Program; Visit Provider Obstetrics & Gynecology | DX: E34.9 Endocrine disorder, unspecified (principal); N39.0 Urinary tract infection, site not specified ==

== ENCOUNTER → 2023-04-30 08:21 | Outpatient (CLI) | payer BC, SELFPAY ==
--- NOTE | 2023-04-30 08:28 | XR_ITS ---
FINAL REPORT CLINICAL HISTORY: screening for osteoporosis FINDINGS: Using L1-4, the bone mineral density of the spine is 1.091 g/cm2, corresponding to T-score of 0.4. Using the left hip, the bone mineral density of the femoral neck is 0.813 g/cm2, corresponding to a T-score of -0.3. Using the right hip: The bone mineral density of the femoral neck is 0.784 g/cm2, corresponding to a T-score of -0.6. IMPRESSION: Normal bone mineral density of the lumbar spine and hips. NOTE: T-score: Standard deviation compared with peak bone mass of young adult mean. *Following the recommendations of the International Society of Bone densitometry, classification of hip BMD is based on the lower of two T-scores; total hip or femoral neck. Reviewed, Interpreted and Dictated by Morgan Norris III, MD Transcribed by Roshni Mohamud Authenticated and [facility]
--- NOTE | 2023-04-30 08:28 | MM_ITS ---
PROCEDURE INFORMATION: Exam: MG Bilateral Screening 3D Mammography Exam date and time: 04/30/2023 8:24 AM Age: 47 years old Clinical indication: Screening examination; Family history of breast cancer in aunt TECHNIQUE: Imaging protocol: Bilateral Screening tomosynthesis and 2D mammography including computer-aided detection (CAD) when performed. COMPARISON: No relevant prior studies available. FINDINGS: MAMMOGRAPHY: Breast composition: There are scattered areas of fibroglandular density. Mass: None. Architectural distortion: None. Calcifications: No suspicious calcifications. Asymmetric density: None. Skin thickening: None. Axillary adenopathy: None. IMPRESSION: No mammographic evidence of malignancy. Annual screening is recommended unless otherwise clinically indicated. ASSESSMENT: BI-RADS Category 1: Negative
== END ==
PROVIDERS: PCP Student in an Organized Health Care Education/Training Program; Visit Provider Obstetrics & Gynecology
DX: Z12.31 Encounter for screening mammogram for malignant neoplasm of breast (principal); Z13.820 Encounter for screening for osteoporosis
CPT/HCPCS: 77063; 77067; 77080

== ENCOUNTER 2023-11-01 11:43 | Outpatient (CLI) | payer BC, SELFPAY ==
[2023-11-01 12:07] LABS: Basophils # 0.1 K/mm3 (0-0.2); Basophils % 1.5 % (0.1-2.0); Eosinophils # 0.1 K/mm3 (0.0-0.4); Eosinophils % 1.8 % (0.1-12.0); Hematocrit 49.7 % (37.0-47.0); Hemoglobin 16.5 g/dL (12.2-16.2); Lymphocytes # 1.9 K/mm3 (0.7-4.5); Lymphocytes % 26.7 % (10-50); Mean Corpuscular HGB Conc 33.2 g/dL (31.8-35.4); Mean Corpuscular Hemoglobin 32.2 pg (27.0-31.2); Mean Platelet Volume 8.4 fl (7.4-10.4); Monocytes # 0.4 K/mm3 (0.1-1.0); Neutrophils # 4.6 K/mm3 (1.8-7.8); Neutrophils % 64.1 % (37.0-80.0); Platelet Count 340 K/mm3 (142-424); Red Blood Count 5.12 M/mm3 (4.20-5.40); Red Cell Distribution Width 13.3 % (11.5-17.5); White Blood Count 7.2 K/mm3 (4.8-10.8)
[2023-11-01 12:42] LABS: Alanine Aminotransferase 20 U/L (12-78); Albumin Level 4.9 g/dl (3.5-5.0); Albumin/Globulin Ratio 1.9 (1.1-1.8); Alkaline Phosphatase 80 U/L (38-126); Anion Gap 11.4 mEq/L (5-15); Aspartate Amino Transferase 26 U/L (14-36); Bilirubin,Total 0.7 mg/dl (0.2-1.3); Blood Urea Nitrogen 11 mg/dl (7-17); Calcium 10.3 mg/dl (8.4-10.2); Carbon Dioxide 28 mmol/L (22.0-30.0); Chloride 104 mmol/L (98-107); Estimated Glomerular Filt Rate 67 ml/min (>60); GFR (African American) 81 ML/MIN (>60); Globulin 2.6 g/dL (1.3-3.2); Glucose 108 mg/dl (74-100); Potassium 4.4 mmoL/L (3.5-5.1); Sodium 139 mmol/L (136-145); Total Protein,Serum 7.5 g/dl (6.3-8.2)
[2023-11-01 12:48] LABS: C-Reactive Protein 5.8 mg/L (0-4)
== END 2023-11-01 23:59 | disposition home or self-care (01) ==
LOC: LAB 11:43
PROVIDERS: PCP Student in an Organized Health Care Education/Training Program; Visit Provider Student in an Organized Health Care Education/Training Program
DX: R19.7 Diarrhea, unspecified (principal); R10.9 Unspecified abdominal pain; K21.9 Gastro-esophageal reflux disease without esophagitis
CPT/HCPCS: 36415; 80053; 85025; 86140

== ENCOUNTER 2023-11-24 16:53 | Emergency (ER) | payer BC, SELFPAY ==
[2023-11-24 16:54] VITALS: BP 152/99; PULSE 98; RESP 20; TEMP 36.8; O2SAT 98; BMI 25.8
--- NOTE | 2023-11-24 16:56 | ED_ITS ---
Discharge Plan Disposition Patient Disposition: Home, Self-Care Condition: Good Prescriptions Prescriptions: New levofloxacin 750 mg tablet 750 mg PO DAILY 7 Days Qty: 7 0RF No Action ondansetron 4 mg tablet,disintegrating 4 mg PO DAILY PRN bupropion HCl 150 mg tablet sustained-release 12 hr 150 mg PO DAILY Qty: 30 2RF dicyclomine 20 mg tablet 20 mg PO QID Qty: 120 0RF azithromycin [Zithromax Z-Cholo] 250 mg tablet See Rx Instructions PO .COMPLEX Qty: 6 0RF Rx Instructions: For 250 mg dose pack: take 500 mg today (day 1), then 250 mg for 4 days (days 2-5) PO estrogens-methyltestosterone 0.625-1.25 mg tablet 1 tab PO DAILY Qty: 30 3RF triamcinolone acetonide 0.1 % lotion 1 applic topical BID Qty: 60 0RF atorvastatin 10 mg tablet 10 mg PO DAILY Qty: 90 3RF hydroxyzine HCl 50 mg tablet 50 mg PO HS Qty: 30 0RF Clenpiq 10 mg-3.5 gram- 12 gram/160 mL solution 160 ml PO DAILY Qty: 350 0RF Rx Instructions: take first dose at 5-9PM evening before colonoscopy; 2nd dose the next day approximately 5 hrs before colonoscopy Referrals Follow up/Referrals: Juanis Escoto PA [Primary Care Provider] - See instructions Activity Restrictions/Add. Instructions Additional Instructions/Restrictions: Follow-up with your PCP or return to ER symptoms. Keep your appointment as scheduled with GI for referral from your PCP as needed. Clinical Impressions Clinical Impression: Proctitis, Colitis, BRBPR (bright red blood per rectum) Instructions Patient Instructions: DI for Acute Abdominal Pain Discharge ED Provider: Pat Alexandre General Adult HPI <TACOS Sahu - Last Filed: 11/24/23 19:00> General Chief complaint: Abdominal Pain Stated complaint: passing blood severe stomach pain Time Seen by Provider: 11/24/23 16:56 History of Present Illness HPI narrative: Patient presents for evaluation of abdominal pain and bright red blood per rectum. Patient is a 3-week history of intermittent crampy abdominal pain. She was seen at the [facility] 3 weeks ago but ultimately discharged home with GI follow-up. She is supposed to have a telehealth visit on Saturday but was unable to connect with a provider. However this morning patient reports that she has been having too many to count numerous bright red blood per rectum stools. She reports diffuse crampy abdominal pain she also has had nausea with 1 episode of vomiting and took a Zofran however she has vomited after that as well. Related Data Home Medications Medication Instructions Recorded Confirmed ondansetron 4 mg disintegrating 4 mg PO DAILY PRN 11/01/23 11/01/23 tablet Previous Rx's Medication Instructions Recorded esterified 1 tab PO DAILY #30 tabs 04/17/23 estrogens-methyltestosterone 0.625 mg-1.25 mg tablet atorvastatin 10 mg tablet 10 mg PO DAILY #90 tabs 04/18/23 triamcinolone acetonide 0.1 % 1 applic topical BID #60 mL 04/23/23 lotion hydroxyzine HCl 50 mg tablet 50 mg PO HS #30 tabs 04/30/23 sod picosulf 10 mg-magnes 3.5 160 ml PO DAILY 2 doses #350 mL 05/20/23 gram-citric 12 gram/160 mL oral solution (Clenpiq) azithromycin 250 mg tablet See Rx Instructions PO .COMPLEX #6 11/01/23 (Zithromax Z-Cholo) tabs bupropion HCl 150 mg tablet,12 hr 150 mg PO DAILY #30 ea 11/01/23 sustained-release dicyclomine 20 mg tablet 20 mg PO QID #120 tabs 11/01/23 levofloxacin 750 mg tablet 750 mg PO DAILY 7 days #7 tabs 11/24/23 Allergies Allergy/AdvReac Type Severity Reaction Status Date / Time Penicillins Allergy Mild Verified 11/01/23 10:57 codeine [CODEINE] Allergy Unknown Verified 11/01/23 10:57 Sulfa (Sulfonamide Allergy Unknown Verified 11/01/23 10:57 Antibiotics) [SULFA (SULFONAMIDE ANTIBIOTICS)] aspirin Allergy Verified 11/01/23 10:57 morphine [MORPHINE] AdvReac Unknown Vomiting Verified 11/01/23 10:57 PFS <TACOS Sahu - Last Filed: 11/24/23 19:00> [facility] Disclaimer: The information contained in this section may have been updated after the patient was seen, as this information can be updated by other users. Medical History Nummular dermatitis Shingles Lung nodule seen on imaging study Surgical History S/P laparoscopic hysterectomy History of section x 1 History of tubal ligation Filshie clips H/O lumbar discectomy Family History Other Asthma Cancer Thyroid disorder Social History Smoking Status: Current every day smoker tobacco type: cigarettes packs per day: 1 alcohol intake: never substance use type: denies use current occupational status: employed and other Travel in the last 8 weeks: None household members: family housing: house <TACOS Sahu - Last Filed: 11/24/23 19:00> ROS Obtained: Yes Systems reviewed as appropriate & no additional complaints except as documented Physical Exam <TACOS Sahu - Last Filed: 11/24/23 19:00> General General appearance: alert and in no apparent distress Respiratory Respiratory exam: Present normal lung sounds bilaterally; Absent respiratory distress Cardiovascular Cardiovascular exam: Present regular rate and normal rhythm Abdominal Exam Abdominal exam: Present soft, tenderness (Patient has mild diffuse abdominal tenderness to palpation) and normal bowel sounds; Absent guarding or rebound Extremities Exam Extremities exam: Present normal inspection and full ROM Back Exam Back exam: Present normal inspection and full ROM Neurological Exam Neurological exam: Present alert and oriented X3 Skin Skin exam: Present warm, dry and normal color Medical Decision Making <TACOS Sahu - Last Filed: 11/24/23 19:00> Medical Records Medical records reviewed: Yes I reviewed the patient's medical records. [place] Inquiry Pt receiving controlled substance: No Vital Signs: 11/24/23 16:54 11/24/23 19:03 Temperature 98.3 F 98.0 F Temperature Source Oral Pulse Rate 70 Pulse Rate [Right Radial] 98 H Respiratory Rate 20 20 Blood Pressure 147/80 H Blood Pressure [Right Arm] 152/99 H Blood Pressure Mean [Right Arm] 116 02 Sat by Pulse Oximetry 98 Oxygen Delivery Method Room Air Room Air Lab Data Lab results reviewed: Yes I reviewed the patient's lab results. Lab Results 11/24/23 17:00: WBC 12.1 H, RBC 4.89, Hgb 15.8, Hct 46.7, MCV 95.3, MCH 32.2 H, MCHC 33.8, RDW 13.8, Plt Count 332, MPV 8.4, Neut % (Auto) 81.7 H, Lymph % (Auto) 13.0, [place] % (Auto) 3.7, Eos % (Auto) 1.2, Baso % (Auto) 0.4, Neut # (Auto) 9.9 H, Lymph # (Auto) 1.6, [place] # (Auto) 0.4, Eos # (Auto) 0.1, Baso # (Auto) 0.1, ESR 14, PT 10.9, INR 1.01, Sodium 140, Potassium 3.7, Chloride 109 H , Carbon Dioxide 22, Anion Gap 12.7, BUN 11, Creatinine 0.80, Estimated Creat Clear 102, Estimated GFR 77, Est GFR ( Amer) 93, Glucose 114 H, Lactate 1.2, Calcium 10.3 H, Magnesium 1.8, Total Bilirubin 0.8, AST 30, ALT 27, Alkaline Phosphatase 99, C-Reactive Protein 1.2, Total Protein 7.6, Albumin 4.6, Globulin 3.0, Albumin/Globulin Ratio 1.5, Lipase 63 11/24/23 17:00 11/24/23 17:00 Orders (Tests/Meds): ED MEDICATIONS Discontinued Medications Generic Name Dose Route Start Last Admin Trade Name Freq PRN Reason Stop Dose Admin Acetaminophen 1,000 mg 11/24/23 17:08 11/24/23 17:15 Acetaminophen 1,000mg/100ml Vial IV 11/24/23 17:09 1,000 mg ONCE ONE Administration Lactated Ringer's 1,000 mls @ 999 mls/hr 11/24/23 17:08 11/24/23 17:16 Lactated Ringer's 1000 Ml Bag IV 11/24/23 18:08 999 mls/hr .Q1H1M ONE Administration Iopamidol 75 ml 11/24/23 17:31 11/24/23 17:32 Iopamidol-370 (76%);100ml Bottle IV 11/24/23 17:32 75 ml ONCE ONE Administration Promethazine HCl 25 mg 11/24/23 17:08 11/24/23 17:16 Promethazine Hcl 25mg/Ml 1ml Vial IV 11/24/23 17:09 25 mg ONCE ONE Administration Sodium Chloride 25 ml 11/24/23 17:08 11/24/23 17:17 Sodium Chloride 0.9% 25ml Bag IV 11/24/23 17:09 25 ml ONCE ONE Administration Sodium Chloride 10 ml 11/24/23 17:31 11/24/23 17:32 Sodium Chloride 0.9% 10ml Syr (Rad Only) IV 11/24/23 17:32 10 ml ONCE ONE Administration ORDERS Category Date Time Status CT abdomen pelvis w con Stat Cat Scan 11/24/23 17:09 Completed CBC w/Auto Diff [Complete Blood Count Auto Diff] Stat Lab 11/24/23 17:00 Completed CMP [Comprehensive Metabolic Panel] Stat Lab 11/24/23 17:00 Completed CRP [C-Reactive Protein] Stat Lab 11/24/23 17:00 Completed Erythrocyte Sedimentation Rate Stat Lab 11/24/23 17:00 Completed INR [Prothrombin Time INR] Stat Lab 11/24/23 17:00 Completed Lactic Acid Stat Lab 11/24/23 17:00 Completed Lipase Stat Lab 11/24/23 17:00 Completed Magnesium Stat Lab 11/24/23 17:00 Completed Medical Decision Narrative: In summary patient is a 48-year-old female who presents to the emergency department for evaluation of abdominal pain and bright red blood per rectum. Patient is hemodynamically stable with a blood pressure one 0.9998 respiratory rate 20 satting at 98% on room air upon arrival, and afebrile. Physical exam is remarkable only for mild rigidity. Bowel sounds are normal.. Differential diagnosis includes ischemic colitis versus infectious gastroenteritis versus inflammatory bowel disease versus Crohn's. Patient reportedly was told while at the that her CAT scan had an appearance of Crohn's 3 weeks ago.. Initial workup will be conducted with hematologic labs stool for occult blood gastrointestinal panel and CT scan abdomen pelvis with contrast. Initial interventions include crystalloid bolus Tylenol and Phenergan. Initial workup reviewed by me shows that her hematologic labs are nonactionable including a normal CRP and sed rate. Patient does have a slight leukocytosis left shift but no evidence otherwise of infection. Pulm interpretation of the CT scan there is slight inflammation of the rectum and distal portion of the sigmoid colon without any free air. Upon repeat evaluation at acceptable resolution of her discomfort. Given this I have had an interactive discussion with the patient regarding the findings. Patient is appropriate for discharge with close follow-up with her PCP and referral to a local wound a. Given the possibility of this infectious started the patient on Levaquin. Patient return to ER <Pat Alexandre MD - Last Filed: 11/24/23 19:57> Vital Signs: 11/24/23 16:54 11/24/23 19:03 Temperature 98.3 F 98.0 F Temperature Source Oral Pulse Rate 70 Pulse Rate [Right Radial] 98 H Respiratory Rate 20 20 Blood Pressure 147/80 H Blood Pressure [Right Arm] 152/99 H Blood Pressure Mean [Right Arm] 116 02 Sat by Pulse Oximetry 98 Oxygen Delivery Method Room Air Room Air Lab Data Lab Results 11/24/23 17:00: WBC 12.1 H, RBC 4.89, Hgb 15.8, Hct 46.7, MCV 95.3, MCH 32.2 H, MCHC 33.8, RDW 13.8, Plt Count 332, MPV 8.4, Neut % (Auto) 81.7 H, Lymph % (Auto) 13.0, [place] % (Auto) 3.7, Eos % (Auto) 1.2, Baso % (Auto) 0.4, Neut # (Auto) 9.9 H, Lymph # (Auto) 1.6, [place] # (Auto) 0.4, Eos # (Auto) 0.1, Baso # (Auto) 0.1, ESR 14, PT 10.9, INR 1.01, Sodium 140, Potassium 3.7, Chloride 109 H , Carbon Dioxide 22, Anion Gap 12.7, BUN 11, Creatinine 0.80, Estimated Creat Clear 102, Estimated GFR 77, Est GFR ( Amer) 93, Glucose 114 H, Lactate 1.2, Calcium 10.3 H, Magnesium 1.8, Total Bilirubin 0.8, AST 30, ALT 27, Alkaline Phosphatase 99, C-Reactive Protein 1.2, Total Protein 7.6, Albumin 4.6, Globulin 3.0, Albumin/Globulin Ratio 1.5, Lipase 63 Orders (Tests/Meds): ED MEDICATIONS Discontinued Medications Generic Name Dose Route Start Last Admin Trade Name Freq PRN Reason Stop Dose Admin Acetaminophen 1,000 mg 11/24/23 17:08 11/24/23 17:15 Acetaminophen 1,000mg/100ml Vial IV 11/24/23 17:09 1,000 mg ONCE ONE Administration Lactated Ringer's 1,000 mls @ 999 mls/hr 11/24/23 17:08 11/24/23 17:16 Lactated Ringer's 1000 Ml Bag IV 11/24/23 18:08 999 mls/hr .Q1H1M ONE Administration Iopamidol 75 ml 11/24/23 17:31 11/24/23 17:32 Iopamidol-370 (76%);100ml Bottle IV 11/24/23 17:32 75 ml ONCE ONE Administration Promethazine HCl 25 mg 11/24/23 17:08 11/24/23 17:16 Promethazine Hcl 25mg/Ml 1ml Vial IV 11/24/23 17:09 25 mg ONCE ONE Administration Sodium Chloride 25 ml 11/24/23 17:08 11/24/23 17:17 Sodium Chloride 0.9% 25ml Bag IV 11/24/23 17:09 25 ml ONCE ONE Administration Sodium Chloride 10 ml 11/24/23 17:31 11/24/23 17:32 Sodium Chloride 0.9% 10ml Syr (Rad Only) IV 11/24/23 17:32 10 ml ONCE ONE Administration ORDERS Category Date Time Status CT abdomen pelvis w con Stat Cat Scan 11/24/23 17:09 Completed CBC w/Auto Diff [Complete Blood Count Auto Diff] Stat Lab 11/24/23 17:00 Completed CMP [Comprehensive Metabolic Panel] Stat Lab 11/24/23 17:00 Completed CRP [C-Reactive Protein] Stat Lab 11/24/23 17:00 Completed Erythrocyte Sedimentation Rate Stat Lab 11/24/23 17:00 Completed INR [Prothrombin Time INR] Stat Lab 11/24/23 17:00 Completed Lactic Acid Stat Lab 11/24/23 17:00 Completed Lipase Stat Lab 11/24/23 17:00 Completed Magnesium Stat Lab 11/24/23 17:00 Completed Medical Decision Narrative: In summary patient is a 48-year-old female who presents to the emergency department for evaluation of abdominal pain and bright red blood per rectum. Patient is hemodynamically stable with a blood pressure one 0.9998 respiratory rate 20 satting at 98% on room air upon arrival, and afebrile. Physical exam is remarkable only for mild rigidity. Bowel sounds are normal.. Differential diagnosis includes ischemic colitis versus infectious gastroenteritis versus inflammatory bowel disease versus Crohn's. Patient reportedly was told while at the that her CAT scan had an appearance of Crohn's 3 weeks ago.. Initial workup will be conducted with hematologic labs stool for occult blood gastrointestinal panel and CT scan abdomen pelvis with contrast. Initial interventions include crystalloid bolus Tylenol and Phenergan. Initial workup reviewed by me shows that her hematologic labs are nonactionable including a normal CRP and sed rate. Patient does have a slight leukocytosis left shift but no evidence otherwise of infection. Pulm interpretation of the CT scan there is slight inflammation of the rectum and distal portion of the sigmoid colon without any free air. Upon repeat evaluation at acceptable resolution of her discomfort. Given this I have had an interactive discussion with the patient regarding the findings. Patient is appropriate for discharge with close follow-up with her PCP and referral to a local wound a. Given the possibility of this infectious started the patient on Levaquin. Patient return to ER given return precautions. I was consulted by the MIKEY, and we discussed the complexity of the problems being addressed. I approved the treatment and management plan for this patient's care in the Emergency Department, thus performing a substantive portion of the medical decision making. Pat Alexandre MD Critical Care <TACOS Sahu - Last Filed: 11/24/23 19:00> Critical Care Time Critical Care Time: No
--- NOTE | 2023-11-24 17:09 | CT_ITS ---
PROCEDURE INFORMATION: Exam: CT Abdomen And Pelvis With Contrast Exam date and time: 11/24/2023 5:32 PM Age: 48 years old Clinical indication: Other: Blood per rectum; Additional info: Bright red blood per rectum TECHNIQUE: Imaging protocol: Computed tomography of the abdomen and pelvis with contrast. Radiation optimization: All CT scans at this facility use at least one of these dose optimization techniques: automated exposure control; mA and/or kV adjustment per patient size (includes targeted exams where dose is matched to clinical indication); or iterative reconstruction. Contrast material: ISOVUE; Contrast volume: 75 ml; Contrast route: IV; COMPARISON: CT ABDOMEN PELVIS W CON 11/19/2020 7:58 AM FINDINGS: Liver: Mild hepatic steatosis. No hepatomegaly. Gallbladder and bile ducts: Normal. No calcified stones. No ductal dilation. Pancreas: Normal. No ductal dilation. Spleen: Normal. No splenomegaly. Adrenal glands: Normal. No mass. Kidneys and ureters: Normal. No hydronephrosis. Stomach and bowel: Sigmoid colon and rectal wall thickening with dilated vasa recta. No dilated bowel loops. Appendix: No evidence of appendicitis. Intraperitoneal space: Trace pelvic free fluid. Vasculature: Mild atherosclerotic disease without aneurysm. Lymph nodes: Unremarkable. No enlarged lymph nodes. Urinary bladder: Unremarkable as visualized. Reproductive: Status post hysterectomy. No adnexal masses. Bones/joints: Mild lumbar spine degenerative change. Soft tissues: Unremarkable. IMPRESSION: Findings consistent with mild distal colitis with trace pelvic free fluid. This could be secondary to infection or inflammatory bowel disease.
[2023-11-24] MEDS: ACETAMINOPHEN 1,000MG/100ML VIAL 1000 MG IV (17:15)
[2023-11-24 17:16] LABS: Basophils # 0.1 K/mm3 (0-0.2); Basophils % 0.4 % (0.1-2.0); Eosinophils # 0.1 K/mm3 (0.0-0.4); Eosinophils % 1.2 % (0.1-12.0); Hematocrit 46.7 % (37.0-47.0); Hemoglobin 15.8 g/dL (12.2-16.2); Lymphocytes # 1.6 K/mm3 (0.7-4.5); Mean Corpuscular HGB Conc 33.8 g/dL (31.8-35.4); Mean Corpuscular Hemoglobin 32.2 pg (27.0-31.2); Mean Corpuscular Volume 95.3 fl (81-99); Mean Platelet Volume 8.4 fl (7.4-10.4); Monocytes # 0.4 K/mm3 (0.1-1.0); Monocytes % 3.7 % (1.7-9.3); Neutrophils # 9.9 K/mm3 (1.8-7.8); Neutrophils % 81.7 % (37.0-80.0); Platelet Count 332 K/mm3 (142-424); Red Blood Count 4.89 M/mm3 (4.20-5.40); Red Cell Distribution Width 13.8 % (11.5-17.5); White Blood Count 12.1 K/mm3 (4.8-10.8)
[2023-11-24] MEDS: PROMETHAZINE HCL 25MG/ML 1ML VIAL 25 MG IV (17:16)
[2023-11-24] MEDS: LACTATED RINGERS 1000ML 1,000 ML 999 ML IV (17:16)
[2023-11-24] MEDS: SODIUM CHLORIDE 0.9% 25ML BAG 25 ML IV (17:17)
[2023-11-24 17:18] LABS: Chloride 109 mmol/L (98-107); Potassium 3.7 mmoL/L (3.5-5.1); Sodium 140 mmol/L (136-145)
[2023-11-24 17:20] LABS: Alanine Aminotransferase 27 U/L (12-78); Aspartate Amino Transferase 30 U/L (14-36); Blood Urea Nitrogen 11 mg/dl (7-17); Creatinine Clearance Estimated 102 mL/min (50-200); Estimated Glomerular Filt Rate 77 ml/min (>60); GFR (African American) 93 ML/MIN (>60); Lactic Acid 1.2 mmol/L (0.7-2.1)
[2023-11-24 17:21] LABS: Albumin Level 4.6 g/dl (3.5-5.0); Albumin/Globulin Ratio 1.5 (1.1-1.8); Alkaline Phosphatase 99 U/L (38-126); Anion Gap 12.7 mEq/L (5-15); Bilirubin,Total 0.8 mg/dl (0.2-1.3); Calcium 10.3 mg/dl (8.4-10.2); Carbon Dioxide 22 mmol/L (22.0-30.0); Glucose 114 mg/dl (74-100); Lipase 63 U/L (23-300); Magnesium 1.8 mg/dl (1.6-2.3); Prothrombin Time 10.9 seconds (10.1-12.5); Total Protein,Serum 7.6 g/dl (6.3-8.2)
[2023-11-24 17:22] LABS: INR 1.01 (0.9-1.1)
--- NOTE | 2023-11-24 17:27 | PC.NURSE ---
pt going to CT
[2023-11-24] MEDS: IOPAMIDOL-370 (76%);100ML BOTTLE 75 ML IV (17:32)
[2023-11-24] MEDS: SODIUM CHLORIDE 0.9% 10ML SYR (RAD ONLY) 10 ML IV (17:32)
[2023-11-24 17:43] LABS: C-Reactive Protein 1.2 mg/L (0-4)
[2023-11-24 17:51] LABS: Erythrocyte Sedimentation Rate 14 mm/hr (0-20)
[2023-11-24 19:03] VITALS: BP 147/80; PULSE 70; RESP 20; TEMP 36.7; O2SAT 99
== END 2023-11-24 19:08 | disposition home or self-care (01) ==
PROVIDERS: Physician Assistant; Emergency Provider Emergency Medicine; PCP Student in an Organized Health Care Education/Training Program
DX: K62.5 Hemorrhage of anus and rectum (principal); R10.84 Generalized abdominal pain; K62.89 Other specified diseases of anus and rectum; K52.9 Noninfective gastroenteritis and colitis, unspecified; R11.2 Nausea with vomiting, unspecified; F17.210 Nicotine dependence, cigarettes, uncomplicated
CPT/HCPCS: 74177; 80053; 83605; 83690; 83735; 85025; 85610; 85651; 86140; 96361; 96374; 96375; 99284; J0131; Q9967

== ENCOUNTER 2023-11-25 12:40 | Outpatient (CLI) | payer BC, SELFPAY ==
[2023-11-25 19:00] LABS: Phosphorous 3.9 mg/dl (2.5-4.5)
[2023-11-25 19:08] LABS: Intact Parathyroid Hormone 41.8 pg/mL (7.5-53.5)
== END 2023-11-25 23:59 | disposition home or self-care (01) ==
LOC: LAB.DROPOF 11-26 12:40
PROVIDERS: PCP Student in an Organized Health Care Education/Training Program; Visit Provider Student in an Organized Health Care Education/Training Program
DX: E83.52 Hypercalcemia (principal)
CPT/HCPCS: 83970; 84100

== ENCOUNTER 2023-11-26 17:52 | Outpatient (CLI) | payer BC, SELFPAY ==
[2023-11-28 17:10] LABS: Calcium, Ionized 5.2 mg/dL (4.5-5.6)
== END 2023-11-26 23:59 | disposition home or self-care (01) ==
PROVIDERS: PCP Student in an Organized Health Care Education/Training Program; Visit Provider Student in an Organized Health Care Education/Training Program
DX: E83.52 Hypercalcemia (principal)
CPT/HCPCS: 36415; 82330

== ENCOUNTER 2023-12-30 14:09 | Outpatient (CLI) | payer BC, SELFPAY ==
--- NOTE | 2023-12-30 14:12 | XR_ITS ---
FINAL REPORT CLINICAL HISTORY: Fibula fx FINDINGS: LEFT TIBIA/FIBULA 2 views were obtained. There is an oblique, nondisplaced fracture at the distal fibular diaphysis. The joint spaces are intact. There is no soft tissue abnormality. IMPRESSION: Oblique, nondisplaced fracture of the distal fibular diaphysis. Reviewed, Interpreted and Dictated by Morgan Norris III, MD Transcribed by Roshni Mohamud Authenticated and . [facility]
== END 2023-12-30 23:59 | disposition home or self-care (01) ==
LOC: RAD 14:10
PROVIDERS: PCP Student in an Organized Health Care Education/Training Program; Visit Provider Physician Assistant
DX: M79.662 Pain in left lower leg (principal); S82.402A Unspecified fracture of shaft of left fibula, initial encounter for closed fracture
CPT/HCPCS: 73590

== ENCOUNTER 2024-01-13 13:50 | Outpatient (CLI) | payer BC, SELFPAY ==
--- NOTE | 2024-01-13 13:57 | XR_ITS ---
FINAL REPORT CLINICAL HISTORY: left tib fib follow-up, pain COMPARISON: 12/30/2023 FINDINGS: 2 views of the left tibia/fibular were obtained. There is a minimally displaced comminuted fracture of the distal fibula again noted. This is not significantly changed. Fiberglass cast mildly obscures bony detail. The joint spaces are intact. There is no soft tissue abnormality. IMPRESSION: No significant change in distal fibular fracture. Reviewed, Interpreted and Dictated by Naveed Alcala MD Transcribed by Juliana Infante Authenticated and [facility]
== END 2024-01-13 23:59 | disposition home or self-care (01) ==
LOC: RAD 13:52
PROVIDERS: PCP Student in an Organized Health Care Education/Training Program; Visit Provider Orthopaedic Surgery
DX: M79.662 Pain in left lower leg (principal); S89.302A Unspecified physeal fracture of lower end of left fibula, initial encounter for closed fracture
CPT/HCPCS: 73590

== ENCOUNTER 2024-01-28 13:11 | Outpatient (CLI) | payer BC, SELFPAY ==
--- NOTE | 2024-01-28 13:14 | XR_ITS ---
FINAL REPORT CLINICAL HISTORY: Lt Tib/ Fib Fx, s/p cast removal COMPARISON: 01/13/2024 FINDINGS: In the interval since the prior film of January 12 the cast has been removed. There is a persistent nondisplaced fracture of the distal fibular metaphysis, with no significant change since the prior film. The joint spaces are intact. There is no soft tissue abnormality. IMPRESSION: Persistent nondisplaced fracture of the distal fibular metaphysis, not significantly changed since the prior exam of January 12. Reviewed, Interpreted and Dictated by Morgan Norris III, MD Transcribed by Chelsea Antoine Authenticated and [facility]
== END 2024-01-28 23:59 | disposition home or self-care (01) ==
LOC: RAD 13:12
PROVIDERS: PCP Student in an Organized Health Care Education/Training Program; Visit Provider Orthopaedic Surgery
DX: M79.662 Pain in left lower leg (principal); S89.302A Unspecified physeal fracture of lower end of left fibula, initial encounter for closed fracture
CPT/HCPCS: 73590

== ENCOUNTER 2024-02-18 13:00 | Outpatient (CLI) | payer BC, SELFPAY ==
--- NOTE | 2024-02-18 13:03 | XR_ITS ---
FINAL REPORT CLINICAL HISTORY: left tib fib f/u COMPARISON: 01/28/2024 FINDINGS: Two views of the left tibia/fibula were obtained. There is redemonstration of oblique nondisplaced fracture through the distal fibular diaphysis. This is unchanged compared to the prior study. The joint spaces are intact. There is no soft tissue abnormality. IMPRESSION: Stable distal fibular fracture as above. Reviewed, Interpreted and Dictated by Rodriguez Michelle MD Transcribed by Juliana Infante Authenticated and [facility]
== END 2024-02-18 23:59 | disposition home or self-care (01) ==
LOC: RAD 13:00
PROVIDERS: PCP Student in an Organized Health Care Education/Training Program; Visit Provider Physician Assistant
DX: M79.662 Pain in left lower leg (principal); S82.65XD Nondisplaced fracture of lateral malleolus of left fibula, subsequent encounter for closed fracture with routine healing
CPT/HCPCS: 73590

== ENCOUNTER 2024-03-03 13:28 | Outpatient (CLI) | payer BC, SELFPAY ==
--- NOTE | 2024-03-03 13:30 | XR_ITS ---
FINAL REPORT CLINICAL HISTORY: LT ANKLE FX, broke 8-9 weeks ago COMPARISON: 02/18/2024 FINDINGS: LEFT ANKLE: Three views of the left ankle were obtained. Again noted is an oblique nondisplaced fracture of the distal fibular metaphysis. There has been callus formation at the fracture site since the prior. Bony alignment is stable. There is no new bony abnormality. The joint spaces and mortise are intact. There is no soft tissue abnormality. IMPRESSION: Distal fibular metaphysis fracture with callus formation. Reviewed, Interpreted and Dictated by Morgan Norris III, MD Transcribed by Juliana Infante Authenticated and [facility]
== END 2024-03-03 23:59 | disposition home or self-care (01) ==
LOC: RAD 13:28
PROVIDERS: PCP Student in an Organized Health Care Education/Training Program; Visit Provider Physician Assistant
DX: M25.572 Pain in left ankle and joints of left foot (principal)
CPT/HCPCS: 73610

== ENCOUNTER 2024-03-03 14:51 | Outpatient (RCR) | payer BC, SELFPAY | END 2024-03-03 16:00 | disposition home or self-care (01) | LOC: PT 14:51 | PROVIDERS: Visit Provider Physician Assistant | DX: M25.572 Pain in left ankle and joints of left foot (principal); S82.892A Other fracture of left lower leg, initial encounter for closed fracture | CPT/HCPCS: 97760 ==

== ENCOUNTER 2024-03-09 07:56 | Outpatient (RCR) | payer BC, SELFPAY ==
--- NOTE | 2024-03-09 08:42 | HMH.PTOPEV ---
PT Outpatient Evaluation Rehab PT Outpatient Evaluation Start: 03/09/24 07:58 Freq: Status: Active Protocol: Document 03/09/24 08:27 JOHN (Rec: 03/09/24 08:42 JOHN [id number]) E-signed By Jj Roth, PT Outpatient Therapy Subjective History Subjective History Pt presents s/p left ankle distal fibula fx sustained on 02/18/24 caused by slip/fall on garage floor. Pt reports hard cast on left LE for ~4 weeks, then walking boot for ~3 wks, now 'this brace, but I'm still sore and stiff.' Pt currently reports global left ankle stiffness, lateral aspect soreness, and global swelling in and around left ankle. Pt reports work duties involve prolonged standing (6- 8hrs/day). New diagnosis of cancer in past 12 No months? Chief Complaint Pain,Stiff,Swelling,Weakness Symptom Type Ache,Dull Symptoms Relieved By Rest/Positioning,Ice Symptoms Aggravated By Standing,Physical Activity, Walking Prior Functional Limitations None Current Functional Limitations Housework,Standing,Walking, Stairs Symptom Description Constant but Variable Level of pain today (0-10) 2 Pain scale - at its best (0-10) 2 Pain scale - at its worst (0-10) 5 Ankle/Foot Eval Gait Observation General Gait Pattern Observation Antalgic Gait,Decrease Weight Bear (L) Palpation Tenderness left Ankle/Foot Palpation Findings Tenderness Ankle/Foot Palpation Overall Comment 3/4 fx site distal fibula, 1-2 /4 achilles insertion ROM Ankle/Foot Dorsiflexion w/Knee Extended 0 Active Range Motion (degrees) Ankle/Foot Plantar Flexion Active Range 0-50 of Motion (degrees) Ankle/Foot Eversion Active Range of 0-8 Motion (degrees) Ankle/Foot Inversion Active Range of 0-30 Motion (degrees) MMT Ankle Dorsiflexion Strength Grade 4 Good Ankle Plantarflexion Strength Grade 4 Good Foot Eversion Strength Grade 4- Good- Foot Inversion Strength Grade 4- Good- Lower Extremity Functional Index Activities Today, do you or would you have any difficulty at all with: a.Any of your usual work, housework or Moderate difficulty school activities b. Your usual hobbies, recreational or Extreme difficulty or unable sporting activities to perform activity c. Getting into or out of the bath A little bit of difficulty d. Walking between rooms A little bit of difficulty e. Putting on your shoes or socks A little bit of difficulty f. Squatting Extreme difficulty or unable to perform activity g. Lifting an object, like a bag of No difficulty groceries from the floor h. Performing light activities around A little bit of difficulty your home i. Performing heavy activities around Quite a bit of difficulty your home j. Getting into or out of a car No difficulty k. Walking 2 blocks Quite a bit of difficulty l. Walking a mile Quite a bit of difficulty m. Going up or down 10 stairs (about 1 Moderate difficulty flight of stairs) n. Standing for 1 hour Moderate difficulty o. Sitting for 1 hour No difficulty p. Running on even ground Extreme difficulty or unable to perform activity q. Running on uneven ground Extreme difficulty or unable to perform activity r. Making sharp turns while running fast Extreme difficulty or unable to perform activity s. Hopping Extreme difficulty or unable to perform activity t. Rolling over in bed No difficulty LEFI Score Lower Extremity Functional Index Score 37 Outpatient Therapy Assessment Impairments Problems/Impairmments Palpation Tenderness,Impaired Range of Motion,Impaired Strength,Impaired Gait Pattern ,Impaired Walking,Impaired Standing,Impaired Household Care,Impaired Stair Climbing, Impaired Work Activities, Increased Edema,Subjective C/O Pain,Impaired Self Care/Self Management Prognosis Rehab Potential Good Clinical Impression Consistent with Diagnosis Yes Short Term Goals Number of Weeks 4 Decreased Palpation Tenderness Yes: 1-2/4 left ankle Increase Range of Motion Yes: 50-75% of WFL LEFT ANKLE AROM Increase Strength Yes: 4/5 LEFT ANKLE Improve Gait Pattern with Assistive Yes: WFL W/LACE UP BRACE Device Increase Ability to Walk Yes: 30MIN Increase Ability to Stand Yes: 30MIN Improve Ability For Household Care Yes: 30MIN Improve LEFI Score Yes: 45-50 Decrease Subjective C/O Pain Yes: 3/10 W/ABOVE ACTIVITIES Patient to be Ind w/ HEP Yes Fdc Goals Number of Weeks 6-8 Decreased Palpation Tenderness Yes: 0-1/4 LEFT ANKLE Increase Range of Motion Yes: WFL LEFT ANKLE AROM Increase Strength Yes: 4+-5/5 LEFT ANKLE Improve Gait Pattern without Assistive Yes: WFL ON LEVEL TERRAIN Device Increase Ability to Walk Yes: 60MIN Increase Ability to Stand Yes: 60MIN Improve Ability For Household Care Yes: 60MIN Improve Ability to Climb Stairs Yes: WFL Improve Tolerance to Work Activities Yes: WFL FULL DUTY Improve LEFI Score Yes: 60-65 Decrease Subjective C/O Pain Yes: 0-2/10 W/ABOVE ACTIVITIES Patient to be Ind w/ Advanced HEP Yes Outpatient Therapy Plan of Care Treatment Plan May Include Therapeutic Exercise Including Home Yes Exercise Program Manual Therapy Techniques Yes Neuromuscular Re-education Yes Therapeutic Activities to Return to Yes Previous Functional/Work Level Gait Training Yes ADL/Self Care Education Yes Dry Needling Yes Thermal Modalities Yes Electrical Stimulation Yes Ultrasound/Phonophoresis Yes Iontophoresis Yes Orthotics/Bracing/Splinting Yes Vasopneumatic Compression Pump Yes Manual Lymphatic Drainage Yes Eval/Re-Eval Yes Frequency Times per week 2-3 Duration Number of Weeks 6-8 Addendums This patient is a candidate for social No or vocational rehab? Patient/Guardian verbally acknowledges Yes understanding of treatment program and consents to further treatment? Patient/Guardian verbally acknowledges Yes understanding of diagnosis, prognosis and goals for treatment? Eval Complexity PT Charges 66667 - Moderate Complexity Shoulder/Elbow Eval Shoulder Objective Measurements Elbow Objective Measurements PHYSICIAN CERTIFICATION: I certify the specified therapy services for Adrianna Cooper are required, authorized, and reviewed every 30 days.
== END 2024-03-09 07:59 | disposition home or self-care (01) ==
LOC: PT 07:56
PROVIDERS: Visit Provider Physician Assistant
DX: M25.572 Pain in left ankle and joints of left foot (principal); S82.892A Other fracture of left lower leg, initial encounter for closed fracture
CPT/HCPCS: 97163

== ENCOUNTER 2024-03-31 09:58 | Outpatient (CLI) | payer BC, SELFPAY ==
--- NOTE | 2024-03-31 10:02 | XR_ITS ---
FINAL REPORT CLINICAL HISTORY: Left ankle fx x few months ago COMPARISON: 03/03/2024 FINDINGS: LEFT ANKLE: Three views of the left ankle were obtained. There is a subacute oblique fracture of the distal fibular metaphysis. Partial bony fusion is noted. There is no acute bony abnormality. A plantar calcaneal spur is present. The joint spaces and mortise are intact. There is no soft tissue abnormality. IMPRESSION: Distal fibular metaphysis fracture with partial bony fusion. Reviewed, Interpreted and Dictated by Morgan Norris III, MD Transcribed by Juliana Infante Authenticated and [facility]
== END 2024-03-31 23:59 | disposition home or self-care (01) ==
LOC: RAD 09:59
PROVIDERS: PCP Student in an Organized Health Care Education/Training Program; Visit Provider Physician Assistant
DX: M25.572 Pain in left ankle and joints of left foot (principal)
CPT/HCPCS: 73610

== ENCOUNTER 2024-06-25 10:04 | Outpatient (CLI) | payer BC, SELFPAY ==
--- OUTSIDE RECORDS SUMMARY | 2024-06-25 10:07 | XMS_ITS | Clinical Summary ---
Author Organization [facility] Address [address] [place] [address] Care Team Providers Care Functional Mental Disability Teacher Name Role Phone Adonis Grimes MD Primary Care Provider [phone] Allergies Active Allergy Reactions Criticality Noted Date Comments Aspirin Runny nose Medium 08/20/2022 Codeine Anaphylaxis High 08/20/2022 Morphine Anaphylaxis High 08/20/2022 Penicillins Unknown - Patient st ates they do not know rxn details Low 10/30/2023 Sulfa Drugs Anaphylaxis High 08/20/2022 Medications methylPREDNISolone (Medrol Dospak) 4 MG tablets TAKE BY MOUTH DIRECTED ON INSIDE OF PACKAGE 3 Active prednisoLONE acetate (Pred-Forte) 1 % ophthalmic suspension 3 Active tacrolimus (Protopic) 0.03 % ointment 3 Active simvastatin (Zocor) 10 MG tablet Take 10 mg by mouth 1 (one) time each day. 3 Active co-enzyme Q-10 30 MG capsule Take 30 mg by mouth 1 (one) time each day. Active acetaminophen (Tylenol) 325 MG tablet Take 650 mg by mouth if needed. Active diphenhydrAMINE-ac etaminophen (Tylenol PM) 25-500 MG per tablet Take 1 tablet by mouth every night. Active hydrOXYzine pamoate (Vistaril) 25 MG capsule Take 1 capsule (25 mg) by mouth every 6 (six) hours if needed for anxiety for up to 10 days. 30 capsule 4 Active ondansetron ODT (Zofran-ODT) 4 MG disintegrating tablet Take 1 tablet (4 mg) by mouth every 6 (six) hours if needed for nausea. 12 tablet 4 05/30/20 24 Encounters Date Type Department Care Team Description 04/29/2024 10:25 PM EDT - 04/30/2024 12:19 AM EDT Emergency [facility] Emergency Department [address] [place] [address] Yumiko Mccartney, Anxiety attack (Primary Dx); Urinary tract infection with hematuria, site unspecified Discharge Disposition: Home or Self Care 04/29/2024 Travel from Last 3 Months Family History Medical History Relation Name Comments Hepatitis, C Virus Mother Margareth Gutierrez Autoimmune disease Sister Gali Porter Relation Name Status Comments Mother Margareth Gutierrez Sister Gali Porter Social History Tobacco Use Types Packs/Day Years Used Date Smoking Tobacco: Every Day Cigarettes 1 15 Smokeless Tobacco: Never Tobacco Cessation:Ready to Q uit: Not Asked; Counseling Given: Not Answered Alcohol Use Standard Drinks/Week Comments Never 0 (1 standard drink = 0.6 oz pur e alcohol) PHQ-2 Answer Date Recorded Patient Health Questionnaire-2 Score 0 08/20/2022 PHQ-2A Answer Date Recorded Patient Health Questionnaire-2 Score 0 08/20/2022 Comments Unknown Sex and Gender Information Value Date Recorded Sex Assigned at Not on file Legal Sex Female 8:02 AM EST Gender Identity Not on file Sexual Orientation Not on file Last Filed Vital Signs Vital Sign Reading Time Taken Comments Blood Pressure 132/89 04/30/2024 12:09 AM EDT Pulse 95 04/30/2024 12:09 AM EDT Temperature 36.6 ??C (97.8 ??F) 04/29/2024 9:54 PM ED T Respiratory Rate 16 04/30/2024 12:09 AM EDT Oxygen Saturation 97% 04/30/2024 12:09 AM EDT Inhaled Oxygen Concentration - - Weight 74.8 kg (165 lb) 10/30/2023 5:41 PM EDT Height 170.2 cm (5' 7 ) 10/30/2023 5:41 PM EDT Body Mass Index 25.84 10/30/2023 5:41 PM EDT Plan of Treatment Health Maintenance Due Date Last Done Comments [facility]-Infant/Child/Adol SDOH Screenings 1975 [id number] Vaccine (#1) 1980 [facility]-Pneumococcal Vaccine: Pediatrics (0 to 5 Years) and At-Risk Patients (6 to 64 Years) (1 of 2 - PCV) 1981 [facility]- SDOH Screenings 1993 [facility]-Adult SDOH Screenings 1993 [facility]-Hepatitis B Vaccines (1 of 3 - 19+ 3-dose series) 1994 [facility]-Zoster Vaccines (1 of 2) 1994 [facility]-Pap Smear 1996 [facility]-Cervical Cancer Screening 2005 [facility]-HPV/Cotest 2005 CT Colonography 2020 Colonoscopy 2020 FIT-DNA 2020 FIT 2020 FOBT 2020 Sigmoidoscopy 2020 [facility]-Colorectal Cancer Screening 2020 [facility]-Depression Screening 08/20/2023 08/20/2022 [facility]-Influenza Vaccine (#1) 2024 [facility]-DTaP,Tdap,and Td Vaccine s (3 - Td or Tdap) 02/13/2032 02/12/2022, 09/15/2013 [facility]-RSV Vaccine: 60+ Years o r (1 - 1-dose 75+ series) 2050 [facility]-Obesity Intervention Completed 08/20/2022 [facility]-HIV Screening Completed 10/30/2023, 10/30/2023 [facility]-Hepatitis C Screening Completed 2023, 08/20/2022 [facility]-HIB Vaccines Aged Out No longer e ligible based on patient's age to complete this topic [facility]-HPV Vaccines Aged Out No longer e ligible based on patient's age to complete this topic [facility]-Hepatitis A Vaccines Aged Out No longer eligible based on patient's age to complete this topic [facility]-IPV Vaccines Aged Out No longer e ligible based on patient's age to complete this topic [facility]-Rotavirus Vaccines Aged Out No lo nger eligible based on patient's age to complete this topic Procedures Procedure Name Priority Date/Time Associated Diagnosis Comments SEND ASHA MESSAGE STAT 04/29/2024 11 :05 PM EDT URINALYSIS MICROSCOPIC FOR UA REFLEX STAT 04/29/2024 11:05 PM EDT URINE VALVERDE PANEL STAT 04/29/2024 11:0 5 PM EDT URINALYSIS WITH REFLEX MICROSCOPIC STAT 04/29/2024 11:05 PM EDT URINALYSIS WITH REFLEX MICROSCOPIC STAT 04/29/2024 11:05 PM EDT URINE CULTURE STAT 04/29/2024 11:05 PM EDT XR CHEST 1 VIEW STAT 04/29/2024 10:43 PM EDT FREE T4, PLASMA STAT 04/29/2024 10:25 PM EDT TSH STAT 04/29/2024 10:25 PM EDT MAGNESIUM, PLASMA STAT 04/29/2024 10: 25 PM EDT TROPONIN T, HIGH SENSITIVITY, 0 HOUR, PLASMA, REFLEX TO 2 HOUR STAT 04/29/2024 10:25 PM EDT CBC WITH AUTO DIFFERENTIAL STAT 04/29/2024 10:25 PM EDT COMPREHENSIVE METABOLIC PANEL, PLASMA STAT 04/29/2024 10:25 PM EDT ECG ADULT STAT 04/29/2024 9:59 PM EDT HEPATITIS C ANTIBODY - ED W/REFLEX TO HCV QUANT PCR STAT 10/30/2023 6:23 PM EDT ED PROTOCOL HIV 1/2 ANTIBODY/ANTIGEN SCREEN W/REFLEX TO HIV 1/2 ANTIBODY DIFFERENTIATION STAT 10/30/2023 6:23 PM EDT from Last 3 Months or Most Recently Relevant to Health Maintenance Results * SEND ASHA MESSAGE (04/29/2024 11:05 PM EDT) Urine Urine specimen obtained by clean catch procedure / Unknown Non-blood Collection / Unknown 04/29/2024 11:05 PM EDT 04/29/2024 11:16 PM EDT us Morgan Clark MD LAB URINE ORDERABLES Shelia l Result Performing Organization Address [facility] Co de Phone Number [facility] [address] [place] [address] * Urine Valverde Panel (04/29/2024 11:05 PM EDT) Extra Sent for Culture 04/30/2024 1:03 AM EDT [facility] Urine Urine specimen obtained by clean catch procedure / Unknown Non-blood Collection / Unknown 04/29/2024 11:05 PM EDT 04/29/2024 11:16 PM EDT us Morgan Clark MD LAB URINE ORDERABLES Shelia l Result Performing Organization Address [facility] Co pa Phone Number [facility] [address] [place] [address] * Urinalysis Microscopic Examination (04/29/2024 11:05 PM EDT) Urine Urine specimen obtained by clean catch procedure / Unknown Non-blood Collection / Unknown 04/29/2024 11:05 PM EDT 04/29/2024 11:10 PM EDT us Morgan Clark MD LAB URINE ORDERABLES Shelia l Result Performing Organization Address [facility] Co de Phone Number [facility] [address] [place] [address] * (ABNORMAL) Urinalysis with reflex microscopic (Culture NOT Included) (04/29/2024 11:05 PM EDT) Color, Urine Yellow LAB URINALYSIS - AUTOMATED METHOD 04/29/2024 11:20 PM EDT [facility] Clarity, Urine Cloudy LAB URINALYSIS - AUTOMATED METHOD 04/29/2024 11:20 PM EDT [facility] Spec Little Silver, Urine 1.022 1.005 - 1.030 LAB URINALYSIS - AUTOMATED METHOD 04/29/2024 11:20 PM EDT [facility] pH, Urine >=8.5(H) 4.5 to 8 LAB URINALYSIS - AUTOMATED METHOD 04/29/2024 11:20 PM EDT [facility] Protein, Urine 100(A) Negative mg/dL LAB URINALYSIS - AUTOMATED METHOD 04/29/2024 11:20 PM EDT [facility] Glucose, Urine Negative Negative mg/dL LAB URINALYSIS - AUTOMATED METHOD 04/29/2024 11:20 PM EDT [facility] Ketones, Urine Trace(A) Negative mg/dL LAB URINALYSIS - AUTOMATED METHOD 04/29/2024 11:20 PM EDT [facility] Blood, Urine Moderate(A) Negative LAB URINALYSIS - AUTOMATED METHOD 04/29/2024 11:20 PM EDT [facility] Bilirubin, Urine Negative Negative LAB URINALYSIS - AUTOMATED METHOD 04/29/2024 11:20 PM EDT [facility] Urobilinogen, Urine 1.0 0.2 to 1.0 mg/dL LAB URINALYSIS - AUTOMATED METHOD 04/29/2024 11:20 PM EDT [facility] Leukocytes, Urine Small(A) Negative LAB URINALYSIS - AUTOMATED METHOD 04/29/2024 11:20 PM EDT [facility] Nitrite, Urine Negative Negative LAB URINALYSIS - AUTOMATED METHOD 04/29/2024 11:20 PM EDT [facility] RBC, Urine >50(A) 0 to 3 /HPF LAB URINALYSIS - AUTOMATED METHOD 04/29/2024 11:20 PM EDT [facility] Comment:This result was prev iously suppressed from the chart. WBC, Urine 21 - 50(A) 0 to 5 /HPF LAB URINALYSIS - AUTOMATED METHOD 04/29/2024 11:20 PM EDT [facility] Comment:This result was prev iously suppressed from the chart. Squamous Epithelial Cells 3 - 5 0 to 5 /HPF LAB URINALYSIS - AUTOMATED METHOD 04/29/2024 11:20 PM EDT [facility] Comment:This result was prev iously suppressed from the chart. Hyaline Casts 0 - 2 0 to 5 /LPF LAB URINALYSIS - AUTOMATED METHOD 04/29/2024 11:20 PM EDT [facility] Comment:This result was prev iously suppressed from the chart. Bacteria, Urine Present Negative LAB URINALYSIS - AUTOMATED METHOD 04/29/2024 11:20 PM EDT [facility] Comment:This result was prev iously suppressed from the chart. Urine Urine specimen obtained by clean catch procedure / Unknown Non-blood Collection / Unknown 04/29/2024 11:05 PM EDT 04/29/2024 11:10 PM EDT Morgan Clark MD LAB URINE ORDERABLES Shelia l Result Performing Organization Address [facility] Co de Phone Number [facility] [address] [place] [address] * Urine Culture (04/29/2024 11:05 PM EDT) Culture 10,000 - 100,000 CFU/mL Mixed urogenital, fecal, or skin arun present. 05/01/2024 8:18 AM EDT [facility] Urine Urine specimen obtained by clean catch procedure / Unknown Non-blood Collection / Unknown 04/29/2024 11:05 PM EDT 04/29/2024 11:16 PM EDT us Morgan Clark MD LAB MICROBIOLOGY - GENERA L ORDERABLES Final Result Performing Organization Address [facility] Co de Phone Number [facility] [address] [place] [address] * XR Chest 1 View (04/29/2024 10:43 PM EDT) Anatomical Region Laterality Modality Chest Digital Radiogra phy Impressions 04/29/2024 10:48 PM EDT No acute cardiopulmonary process. CRITICAL RESULT: ?? No. COMMUNICATION: Per this written report. Preliminary report signed by Glenroy Barlow MD on 04/29/2024 10:46 PM By electronically signing this report, I, the attending physician, attest that I have personally reviewed the images/data for the above examination(s) and agree with the final edited report. Drafted by Glenroy Barlow MD on 04/29/2024 10:43 PM Final report signed by Reagan Kim MD on 04/29/2024 10:48 PM Narrative 04/29/2024 10:48 PM EDT CLINICAL INDICATION: chest pressure TECHNIQUE: XR CHEST 1 VIEW COMPARISON: None. FINDINGS: Lungs are clear. Heart and mediastinal contours are within normal limits. No pneumothorax. ??No pleural effusion. Bony structures are unremarkable. Procedure Note Reagan Kim MD - 04/29/2024 CLINICAL INDICATION: chest pressure TECHNIQUE: XR CHEST 1 VIEW COMPARISON: None. FINDINGS: Lungs are clear. Heart and mediastinal contours are within normal limits.No pneumothorax. No pleural effusion. Bony structures are unremarkable. IMPRESSION: No acute cardiopulmonary process. CRITICAL RESULT: No. COMMUNICATION: Per this written report. Preliminary report signed by Glenroy Barlow MD on 04/29/2024 10:46 PM By electronically signing this report, I, the attending physician, attestthat I have personally reviewed the images/data for the aboveexamination(s) and agree with the final edited report. Drafted by Glenroy Barlow MD on 04/29/2024 10:43 PM Final report signed by Reagan Kim MD on 04/29/2024 10:48 PM us Berto Grigsby MD IMG XR PROCEDURES Final Result * Troponin now and 120 min (04/29/2024 10:25 PM EDT) Troponin T, High Sensitivity, 0 Hour <6 <14 ng/L 04/29/2024 11:10 PM EDT [facility] Blood Venous blood specimen / Unknown Venipuncture / Unknown 04/29/2024 10:25 PM EDT 04/29/2024 10:33 PM EDT us Berto Grigsby MD LAB BLOOD ORDERABLES Final Resul t [facility] [address] [place] [address] * (ABNORMAL) CBC w/diff (04/29/2024 10:25 PM EDT) WBC Count 9.99 3.70 - 10.30 10*3/uL LAB HEMATOLOGY METHOD 04/29/2024 10:40 PM EDT [facility] RBC Count 4.86 3.90 - 5.20 10*6/uL LAB HEMATOLOGY METHOD 04/29/2024 10:40 PM EDT [facility] HGB 15.5 11.2 - 15.7 g/dL LAB HEMATOLOGY METHOD 04/29/2024 10:40 PM EDT [facility] HCT 42.4 34.0 - 45.0 % LAB HEMATOLOGY METHOD 04/29/2024 10:40 PM EDT [facility] Platelet Count 330 155 - 369 10*3/uL LAB HEMATOLOGY METHOD 04/29/2024 10:40 PM EDT [facility] MCV 87 79 - 98 fL LAB HEMATOLOGY METHOD 04/29/2024 10:40 PM EDT [facility] MCH 31.9 26.0 - 32.0 pg LAB HEMATOLOGY METHOD 04/29/2024 10:40 PM EDT [facility] MCHC 36.6(H) 30.7 - 35.5 g/dL LAB HEMATOLOGY METHOD 04/29/2024 10:40 PM EDT [facility] RDW 12.8 11.5 - 14.5 % LAB HEMATOLOGY METHOD 04/29/2024 10:40 PM EDT [facility] MPV 10.5 8.8 - 12.5 fL LAB HEMATOLOGY METHOD 04/29/2024 10:40 PM EDT [facility] nRBC 0.0 <=0.0 per 100 WBCs LAB HEMATOLOGY METHOD 04/29/2024 10:40 PM EDT [facility] Differential Type Automated LAB HEMATOLOGY METHOD 04/29/2024 10:40 PM EDT [facility] Neutrophils % 76.0 % LAB HEMATOLOGY METHOD 04/29/2024 10:40 PM EDT [facility] Lymphocytes % 15.0 % LAB HEMATOLOGY METHOD 04/29/2024 10:40 PM EDT [facility] Monocytes % 7.0 % LAB HEMATOLOGY METHOD 04/29/2024 10:40 PM EDT [facility] Eosinophils % 1.0 % LAB HEMATOLOGY METHOD 04/29/2024 10:40 PM EDT [facility] Basophils % 1.0 % LAB HEMATOLOGY METHOD 04/29/2024 10:40 PM EDT [facility] Immature Granulocytes % 0.0 % LAB HEMATOLOGY METHOD 04/29/2024 10:40 PM EDT [facility] Neutrophils Absolute 7.55(H) 1.60 - 6.10 10*3/uL LAB HEMATOLOGY METHOD 04/29/2024 10:40 PM EDT [facility] Lymphocytes Absolute 1.53 1.20 - 3.90 10*3/uL LAB HEMATOLOGY METHOD 04/29/2024 10:40 PM EDT [facility] Monocytes Absolute 0.71 0.30 - 0.90 10*3/uL LAB HEMATOLOGY METHOD 04/29/2024 10:40 PM EDT [facility] Eosinophils Absolute 0.11 0.00 - 0.50 10*3/uL LAB HEMATOLOGY METHOD 04/29/2024 10:40 PM EDT [facility] Basophils Absolute 0.05 0.00 - 0.10 10*3/uL LAB HEMATOLOGY METHOD 04/29/2024 10:40 PM EDT [facility] Immature Granulocytes Absolute 0.04 0.00 - 0.06 10*3/uL LAB HEMATOLOGY METHOD 04/29/2024 10:40 PM EDT [facility] Blood Venous blood specimen / Unknown Venipuncture / Unknown 04/29/2024 10:25 PM EDT 04/29/2024 10:33 PM EDT Narrative [facility] - 04/29/2024 10:40 PM EDT Therapeutic decision making should be based on absolute values, rather than percentages. Berto Grigsby MD LAB BLOOD ORDERABLES Final Resul t [facility] [address] [place] [address] * Thyroid Stimulating Hormone, Plasma (04/29/2024 10:25 PM EDT) Thyroid Stimulating Hormone, Plasma 2.65 0.40 - 4.20 uIU/mL 04/29/2024 11:10 PM EDT [facility] Blood Venous blood specimen / Unknown Venipuncture / Unknown 04/29/2024 10:25 PM EDT 04/29/2024 10:33 PM EDT Narrative [facility] - 04/29/2024 11:10 PM EDT Trimester Specific Ranges ?TSH (??IU/mL) 1st Trimester ??0.1 ??- 3.0 2nd Trimester ??0.19 - 4.06 3rd Trimester ??0.3 ??- 3.7 us Berto Grigsby MD LAB BLOOD ORDERABLES Final Resul t Performing Organization Address [facility] de Phone Number [facility] [address] [place] [address] * Free T4, Plasma (04/29/2024 10:25 PM EDT) Free T4, Plasma 1.2 0.8 - 1.7 ng/dL 04/29/2024 11:10 PM EDT [facility] Blood Venous blood specimen / Unknown Venipuncture / Unknown 04/29/2024 10:25 PM EDT 04/29/2024 10:33 PM EDT Narrative [facility] - 04/29/2024 11:10 PM EDT Free T4 Trimester Specific Ranges 1st Trimester ??0.9??- 1.50 ng/dL 2nd Trimester ??0.7 - 1.40 ng/dL 3rd Trimester ??0.7??- 1.24 ng/dL us Berto Grigsby MD LAB BLOOD ORDERABLES Final Resul t Performing Organization Address [facility] de Phone Number [facility] [address] [place] [address] * Magnesium (04/29/2024 10:25 PM EDT) Magnesium, Plasma 2.0 1.9 - 2.4 mg/dL 04/29/2024 11:10 PM EDT [facility] Blood Venous blood specimen / Unknown Venipuncture / Unknown 04/29/2024 10:25 PM EDT 04/29/2024 10:33 PM EDT us Berto Grigsby MD LAB BLOOD ORDERABLES Final Resul t [facility] [address] [place] [address] * (ABNORMAL) CMP (04/29/2024 10:25 PM EDT) Glucose, Plasma 107(H) 74 - 99 mg/dL 04/29/2024 11:10 PM EDT [facility] BUN, Plasma 12 7 - 21 mg/dL 04/29/2024 11:10 PM EDT [facility] Creatinine, Plasma 0.90 0.60 - 1.10 mg/dL 04/29/2024 11:10 PM EDT [facility] BUN/Creatinine Ratio 13 04/29/2024 11:10 PM EDT [facility] Sodium, Plasma 143 136 - 145 mmol/L 04/29/2024 11:10 PM EDT [facility] Potassium, Plasma 3.8 3.6 - 4.9 mmol/L 04/29/2024 11:10 PM EDT [facility] Chloride, Plasma 106 97 - 107 mmol/L 04/29/2024 11:10 PM EDT [facility] CO2, Plasma 22 22 - 29 mmol/L 04/29/2024 11:10 PM EDT [facility] Anion Gap 15 6 - 16 mmol/L 04/29/2024 11:10 PM EDT [facility] Total Calcium, Plasma 10.0 8.9 - 10.2 mg/dL 04/29/2024 11:10 PM EDT [facility] Total Protein 7.6 6.3 - 7.9 g/dL 04/29/2024 11:10 PM EDT [facility] Albumin, Plasma 4.9 3.5 - 5.2 g/dL 04/29/2024 11:10 PM EDT [facility] AST, Plasma 22 10 - 35 U/L 04/29/2024 11:10 PM EDT [facility] Comment:Hemolyzed, result ma y be falsely increased. ALT, Plasma 16 10 - 35 U/L 04/29/2024 11:10 PM EDT [facility] Alkaline Phosphatase, Plasma 102 35 - 104 U/L 04/29/2024 11:10 PM EDT [facility] Total Bilirubin, Plasma 0.4 0.2 - 1.1 mg/dL 04/29/2024 11:10 PM EDT [facility] eGFRcr 79.0 mL/min/1.7 3m*2 04/29/2024 11:10 PM EDT [facility] Comment:Reported eGFRcr in m L/min/1.73m2 is based the CKD-EPI 2020 equation that does not use a race coefficient. Blood Venous blood specimen / Unknown Venipuncture / Unknown 04/29/2024 10:25 PM EDT 04/29/2024 10:33 PM EDT us Berto Grigsby MD LAB BLOOD ORDERABLES Final Resul t [facility] [address] [place] [address] * EKG now - STAT (adult) (04/29/2024 9:59 PM EDT) EKG DIAGNOSIS CLASS Normal MUSE ECG Ventricular Rate 97 BPM MUSE ECG Atrial Rate 97 BPM MUSE ECG FL Interval 178 ms MUSE ECG QRSD Interval 72 ms MUSE ECG QT Interval 366 ms MUSE ECG QTC Interval 464 ms MUSE ECG P Sheridan 53 degrees MUSE ECG R Sheridan 70 degrees MUSE ECG T Wave Sheridan 61 degrees MUSE ECG Diagnosis Normal sinus rhythm MUSE ECG Diagnosis Normal ECG MUSE ECG Diagnosis Confirmed by Christos Ramsey ([id number]) on 04/30/2024 1:04:27 PM MUSE ECG 04/29/2024 9:59 PM EDT 04/30/2024 1:04 PM EDT us Yumiko Mccartney DO ECG ORDERABLES Final Result MUSE ECG * Hepatitis C Antibody - ED (10/30/2023 6:23 PM EDT) Hepatitis C Antibody Negative Negative 10/30/2023 7:01 PM EDT [facility] Blood Venous blood specimen / Unknown Venipuncture / Unknown 10/30/2023 6:23 PM EDT 10/30/2023 6:30 PM EDT us Summar Joe BALDERRAMA LAB BLOOD ORDERABLES Final Resu lt [facility] [address] [place] [address] from Last 3 Months or Most Recently Relevant to Health Maintenance Insurance [employer] Care Teams Functional Mental Disability Teacher Relationship Specialty Start Date End Date Adonis Grimes MD [address] [place] [address] PCP - General 10/30/23
--- OUTSIDE RECORDS SUMMARY | 2024-06-25 10:08 | XMS_ITS | Encounter Summary ---
Author Organization [facility] Address [address] [place] [address] Care Team Providers Care Automotive Accessory Installer Name Role Phone Jo Belle Primary Care Provider [phone] Reason for Visit * Reason Comments Follow-up [address] Ches t for Bilateral Lung Nodules Lung Nodule Encounter Details Date Type Department Care Team (Latest Contact Info) Description 04/02/2018 12:15 PM EDT Office Visit [facility] CARDIOTH[facility]ACIC SURGERY [address] [place] [phone] Jamey Jaramillo MD Lung nodule (Primary Dx) Social History Tobacco Use Types Packs/Day Years Used Date Smoking Tobacco: Every Day Cigarettes 1 27 Smokeless Tobacco: Never Alcohol Use Standard Drinks/Week Comments Yes 0 (1 standard drink = 0.6 oz pur e alcohol) Socially Comments Unknown Sex and Gender Information Value Date Recorded Sex Assigned at Not on file Legal Sex Female 1:30 PM EDT Gender Identity Not on file Sexual Orientation Not on file Occupation Industry Job Start Date Job End Date [employer] Not on file Not on file Not on file documented as of this encounter Last Filed Vital Signs Vital Sign Reading Time Taken Comments Blood Pressure 120/90 04/02/2018 8:59 AM EDT Pulse 72 04/02/2018 8:59 AM EDT Temperature - - Respiratory Rate - - Oxygen Saturation 98% 04/02/2018 8:59 AM EDT Inhaled Oxygen Concentration - - Weight 58.1 kg (128 lb) 04/02/2018 8:59 AM EDT Height 170.2 cm (5' 7 ) 04/02/2018 8:59 AM EDT Body Mass Index 20.05 04/02/2018 8:59 AM EDT documented in this encounter Progress Notes * Jamey Jaramillo MD - 04/02/2018 12:15 PM EDT 04/02/2018 Patient Information Adrianna Cao [address] [facility] [id number] 1975 'PCP/Referring Physician' Jo Belle PA [phone] No ref. provider found Chief Complaint Patient presents with ??? Follow-up [address] Chest for Bilateral Lung Nodules ??? Lung Nodule History of Present Illness: Ms. Cao returns today for follow up of her pulmonary nodules. Since last visit she has cut back on her smoking but continues to smoke. She does have a cough. She had a recent CT scan which revealsa 5 mm nodule in the left lower lobe. This appears to be unchanged. The other nodules appear to be resolved. Patient Active Problem List Diagnosis ??? Lung nodule Past Medical History: Diagnosis Date ??? COPD (chronic obstructive pulmonary disease) (CMS/HCC) ??? Lung nodule ??? Psoriasis Past Surgical History: Procedure Laterality Date ??? SECTION ??? LUMBAR DISC SURGERY No current outpatient prescriptions on file. Allergies Allergen Reactions ??? Bactrim [Sulfamethoxazole-Trimethoprim] Shortness Of Breath ??? Codeine Shortness Of Breath ??? Morphine And Related Shortness Of Breath ??? Sulfa Antibiotics Shortness Of Breath And Swelling ??? Penicillins Rash Social History Social History ??? Marital status: Spouse name: N/A ??? Number of children: 4 ??? 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 Smoking status: Current Every Day Smoker Packs/day: 1.00 Years: 27.00 Types: Cigarettes ??? Smokeless tobacco: Never Used ??? Alcohol use Yes Comment: Socially ??? Drug use: No ??? Sexual activity: Not on file Other Topics Concern ??? Not on file Social History Narrative Lives in [place]. Family History Problem Relation Age of Onset ??? Hyperlipidemia Mother Review of Systems Constitution: Positive for malaise/fatigue, night sweats and weight loss (40 lbs in 11 months). Negative for chills and fever. HENT: Negative for hearing loss, odynophagia and sore throat. Cardiovascular: Positive for dyspnea on exertion. Negative for chest pain, leg swelling, orthopnea and palpitations. Respiratory: Positive for cough and wheezing. Negative for hemoptysis. Endocrine: Negative for cold intolerance, heat intolerance, polydipsia, polyphagia and polyuria. Hematologic/Lymphatic: Bruises/bleeds easily. Skin: Positive for rash. Negative for itching. Musculoskeletal: Positive for back pain. Negative for joint pain, joint swelling and myalgias. Gastrointestinal: Negative for abdominal pain, constipation, diarrhea, hematemesis, hematochezia, melena, nausea and vomiting. Genitourinary: Negative for dysuria, frequency and hematuria. Neurological: Negative for focal weakness, headaches, numbness and seizures. Psychiatric/Behavioral: Negative for suicidal ideas. All other systems reviewed and are negative. Vitals: 04/02/18 0859 BP: 120/90 BP Location: Left arm Patient Position: Sitting Pulse: 72 SpO2: 98% Weight: 58.1 kg (128 lb) Height: 170.2 cm (67 ) Physical Exam LUNGS: Clear. CARDIOVASCULAR: Regular rhythm and rate. Labs/Imaging: I have obtained and reviewed her CT scan. Assessment/Plan: Overall, she appears to be working on her smoking. Her pulmonary nodule status appears to be stableand improved. We will see her back in nine months with another [address] scan. Patient Active Problem List Diagnosis ??? Lung nodule CC: TACOS Mcclelland transcribing on behalf of Jamey Jaramillo MD dictating. documented in this encounter Plan of Treatment Not on file documented as of this encounter Visit Diagnoses Diagnosis Lung nodule- Primary Other diseases of lung, not elsewhere classified documented in this encounter Care Teams Automotive Accessory Installer Relationship Specialty Start Date End Date Jo Belle PA [address] [place] [address] [place] [id number] PCP - General Family Medicine 10/07/17 documented as of this encounter
--- OUTSIDE RECORDS SUMMARY | 2024-06-25 10:08 | XMS_ITS | Encounter Summary ---
Author Organization [facility] Address [address] [place] [address] Care Team Providers Care Mushroom Spawn Maker Name Role Phone Jo Belle Primary Care Provider [phone] Encounter Details Date Type Department Care Team (Late st Contact Info) Description 02/16/2019 Telephone [facility] CARDIOTHORACIC SURGERY [address] [place] [phone] Reynaldo Phoenix Social History Tobacco Use Types Packs/Day Years [...] on file documented as of this encounter Miscellaneous Notes * Telephone Encounter - Reynaldo Phoenix - 02/16/2019 12:25 PM EDT 2ND REMINDER MAILED. documented in this encounter Plan of Treatment Not on file documented as of this encounter Visit Diagnoses Not on filedocumented in this encounter Care Teams Mushroom Spawn Maker Relationship Specialty Start Date End Date Jo Belle PA [address] [place] [id number] PCP - General Family Medicine 10/07/17 documented as of this encounter
--- OUTSIDE RECORDS SUMMARY | 2024-06-25 10:08 | XMS_ITS | Encounter Summary ---
Author Organization [facility] Address [address] [place] [address] Care Team Providers Care Dietetic Technician Name Role Phone Ernesto Salazar Roldan VALLADARES Primary Care Provider [phone] Encounter Details Date Type Department Care Team (Latest Contact Info) Description 08/20/2022 1:29 PM EST - 08/20/2022 11:59 PM EST Hospital Encounter [facility] [address] [place] [phone] Positive anti-CCP test Discharge Disposition: Home or Self Care Social History Tobacco Use Types Packs/Day Years Used Date Smoking Tobacco: Every Day Cigarettes 1 15 Smokeless Tobacco: Never PHQ-2 Answer Date Recorded Patient Health Questionnaire-2 Score 0 08/20/2022 PHQ-2A Answer Date Recorded Patient Health Questionnaire-2 Score 0 08/20/2022 Comments Unknown Sex and Gender Information Value Date Recorded Sex Assigned at Not on file Legal Sex Female 8:02 AM EST Gender Identity Not on file Sexual Orientation Not on file COVID-19 Exposure Response Date Recorded In the last 10 days, have yo u been in contact with someone who was confirmed or suspected to have Coronavirus/COVID-19? No / Unsure 08/20/2022 11:06 AM EST documented as of this encounter Medications at Time of Discharge acetaminophen (Tylenol) 325 MG tablet Take 650 mg by mouth if needed. co-enzyme Q-10 30 MG capsule Take 30 mg by mouth 1 (one) time each day. diphenhydrAMINE-a cetaminophen (Tylenol PM) 25-500 MG per tablet Take 1 tablet by mouth every night. methylPREDNISolon e (Medrol Dospak) 4 MG tablets TAKE BY MOUTH DIRECTED ON INSIDE OF PACKAGE 07/23/2022 prednisoLONE acetate (Pred-Forte) 1 % ophthalmic suspension 08/13/2022 simvastatin (Zocor) 10 MG tablet Take 10 mg by mouth 1 (one) time each day. 08/09/2022 tacrolimus (Protopic) 0.03 % ointment 08/13/2022 documented as of this encounter Plan of Treatment Not on file documented as of this encounter Procedures Procedure Name Priority Date/Time Associated Diagnosis Comments XR HAND WRIST BILATERAL 2 VIEWS Routine 08/20/2022 1:40 PM EST Positive anti-CCP test XR FOOT RIGHT 3+ VIEWS Routine 08/20/2022 1:40 PM EST Positive anti-CCP test XR FOOT LEFT 3+ VIEWS Routine 08/20/2022 1:40 PM EST Positive anti-CCP test documented in this encounter Results * XR Foot Right 3+ Views (08/20/2022 1:40 PM EST) Anatomical Region Laterality Modality Lower Extremities, Foot Right Digital Radiography Impressions 08/20/2022 2:33 PM EST 1.Left hand and wrist: No erosion. 2.Right hand and wrist: Nonspecific lucency at the fourth carpometacarpal joint, which can be seen in the setting of erosion. 3.Left foot: No erosion. 4.Right foot: Finding concerning for a 6 mm radiopaque foreign body plantar to the first distal phalanx. No erosion. CRITICAL RESULT: ?? No. COMMUNICATION: Per this written report. Dictated by Pat Junior MD on 08/20/2022 2:25 PM Signed by Pat Junior MD on 08/20/2022 2:33 PM Narrative 08/20/2022 2:33 PM EST Exam/Procedure: XR HAND WRIST BILATERAL 2 VIEWS, XR FOOT RIGHT 3+ VIEWS, XR FOOT LEFT 3+ VIEWS ordered by SERGEY GRIGSBY CLINICAL INDICATION: hand pain, possible inflammatory arthritis TECHNIQUE: XR HAND WRIST BILATERAL 2 VIEWS, XR FOOT RIGHT 3+ VIEWS, XR FOOT LEFT 3+ VIEWS COMPARISON: None. FINDINGS: Left hand and wrist: Mild degenerative changes of the first interphalangeal joint. No acute fracture or dislocation. Right hand and wrist: Joint spaces are well-maintained. No acute fracture or dislocation. Mild lucency about the fourth carpometacarpal joint, nonspecific and can be seen in the setting of erosion. Left foot: Limited evaluation of the forefoot given nonweightbearing view. Mild degenerative change of the first metatarsophalangeal joint. Small plantar calcaneal enthesophyte. No acute fracture or dislocation. Right foot: 6 mm linear metallic density plantar to the first distal phalanx, concerning for retained radiopaque foreign body. Mild degenerative change of the first metatarsophalangeal joint. Limited evaluation of the forefoot given nonweightbearing view. Mild degenerative changes of the talonavicular joint. Small plantar calcaneal enthesophyte. No acute fracture or dislocation. Procedure Note Pat Junior MD - 08/20/2022 Exam/Procedure: XR HAND WRIST BILATERAL 2 VIEWS, XR FOOT RIGHT 3+ VIEWS,XR FOOT LEFT 3+ VIEWS ordered by SERGEY GRIGSBY CLINICAL INDICATION: hand pain, possible inflammatory arthritis TECHNIQUE: XR HAND WRIST BILATERAL 2 VIEWS, XR FOOT RIGHT 3+ VIEWS, XR FOOT LEFT 3+VIEWS COMPARISON: None. FINDINGS: Left hand and wrist: Mild degenerative changes of the firstinterphalangeal joint. No acute fracture or dislocation. Right hand and wrist: Joint spaces are well-maintained. No acute fractureor dislocation. Mild lucency about the fourth carpometacarpal joint,nonspecific and can be seen in the setting of erosion. Left foot: Limited evaluation of the forefoot given nonweightbearing view.Mild degenerative change of the first metatarsophalangeal joint. Smallplantar calcaneal enthesophyte. No acute fracture or dislocation. Right foot: 6 mm linear metallic density plantar to the first distalphalanx, concerning for retained radiopaque foreign body. Milddegenerative change of the first metatarsophalangeal joint. Limitedevaluation of the forefoot given nonweightbearing view. Mild degenerativechanges of the talonavicular joint. Small plantar calcaneal enthesophyte.No acute fracture or dislocation. IMPRESSION: 1.Left hand and wrist: No erosion. 2.Right hand and wrist: Nonspecific lucency at the fourth carpometacarpaljoint, which can be seen in the setting of erosion. 3.Left foot: No erosion. 4.Right foot: Finding concerning for a 6 mm radiopaque foreign bodyplantar to the first distal phalanx. No erosion. CRITICAL RESULT: No. COMMUNICATION: Per this written report. Dictated by Pat Junior MD on 08/20/2022 2:25 PM Signed by Pat Junior MD on 08/20/2022 2:33 PM Sergey BALDERRAMA IMG XR PROCEDURES Final Result * XR Foot Left 3+ Views (08/20/2022 1:40 PM EST) Anatomical Region Laterality Modality Lower Extremities, Foot Left Digital Radiography Impressions 08/20/2022 2:33 PM EST 1.Left hand and wrist: No erosion. 2.Right hand and wrist: Nonspecific lucency at the fourth carpometacarpal joint, which can be seen in the setting of erosion. 3.Left foot: No erosion. 4.Right foot: Finding concerning for a 6 mm radiopaque foreign body plantar to the first distal phalanx. No erosion. CRITICAL RESULT: ?? No. COMMUNICATION: Per this written report. Dictated by Pat Junior MD on 08/20/2022 2:25 PM Signed by Pat Junior MD on 08/20/2022 2:33 PM Narrative 08/20/2022 2:33 PM EST Exam/Procedure: XR HAND WRIST BILATERAL 2 VIEWS, XR FOOT RIGHT 3+ VIEWS, XR FOOT LEFT 3+ VIEWS ordered by SERGEY GRIGSBY CLINICAL INDICATION: hand pain, possible inflammatory arthritis TECHNIQUE: XR HAND WRIST BILATERAL 2 VIEWS, XR FOOT RIGHT 3+ VIEWS, XR FOOT LEFT 3+ VIEWS COMPARISON: None. FINDINGS: Left hand and wrist: Mild degenerative changes of the first interphalangeal joint. No acute fracture or dislocation. Right hand and wrist: Joint spaces are well-maintained. No acute fracture or dislocation. Mild lucency about the fourth carpometacarpal joint, nonspecific and can be seen in the setting of erosion. Left foot: Limited evaluation of the forefoot given nonweightbearing view. Mild degenerative change of the first metatarsophalangeal joint. Small plantar calcaneal enthesophyte. No acute fracture or dislocation. Right foot: 6 mm linear metallic density plantar to the first distal phalanx, concerning for retained radiopaque foreign body. Mild degenerative change of the first metatarsophalangeal joint. Limited evaluation of the forefoot given nonweightbearing view. Mild degenerative changes of the talonavicular joint. Small plantar calcaneal enthesophyte. No acute fracture or dislocation. Procedure Note Pat Junior MD - 08/20/2022 Exam/Procedure: XR HAND WRIST BILATERAL 2 VIEWS, XR FOOT RIGHT 3+ VIEWS,XR FOOT LEFT 3+ VIEWS ordered by SERGEY GRIGSBY CLINICAL INDICATION: hand pain, possible inflammatory arthritis TECHNIQUE: XR HAND WRIST BILATERAL 2 VIEWS, XR FOOT RIGHT 3+ VIEWS, XR FOOT LEFT 3+VIEWS COMPARISON: None. FINDINGS: Left hand and wrist: Mild degenerative changes of the firstinterphalangeal joint. No acute fracture or dislocation. Right hand and wrist: Joint spaces are well-maintained. No acute fractureor dislocation. Mild lucency about the fourth carpometacarpal joint,nonspecific and can be seen in the setting of erosion. Left foot: Limited evaluation of the forefoot given nonweightbearing view.Mild degenerative change of the first metatarsophalangeal joint. Smallplantar calcaneal enthesophyte. No acute fracture or dislocation. Right foot: 6 mm linear metallic density plantar to the first distalphalanx, concerning for retained radiopaque foreign body. Milddegenerative change of the first metatarsophalangeal joint. Limitedevaluation of the forefoot given nonweightbearing view. Mild degenerativechanges of the talonavicular joint. Small plantar calcaneal enthesophyte.No acute fracture or dislocation. IMPRESSION: 1.Left hand and wrist: No erosion. 2.Right hand and wrist: Nonspecific lucency at the fourth carpometacarpaljoint, which can be seen in the setting of erosion. 3.Left foot: No erosion. 4.Right foot: Finding concerning for a 6 mm radiopaque foreign bodyplantar to the first distal phalanx. No erosion. CRITICAL RESULT: No. COMMUNICATION: Per this written report. Dictated by Pat Junior MD on 08/20/2022 2:25 PM Signed by Pat Junior MD on 08/20/2022 2:33 PM us Sergey Grigsby PA IMG XR PROCEDURES Final Result * XR Hand and Wrist Bilateral 2 Views (08/20/2022 1:40 PM EST) Anatomical Region Laterality Modality Hand, Wrist Bilateral Digital Radiogra phy Impressions 08/20/2022 2:33 PM EST 1.Left hand and wrist: No erosion. 2.Right hand and wrist: Nonspecific lucency at the fourth carpometacarpal joint, which can be seen in the setting of erosion. 3.Left foot: No erosion. 4.Right foot: Finding concerning for a 6 mm radiopaque foreign body plantar to the first distal phalanx. No erosion. CRITICAL RESULT: ?? No. COMMUNICATION: Per this written report. Dictated by Pat Junior MD on 08/20/2022 2:25 PM Signed by Pat Junior MD on 08/20/2022 2:33 PM Narrative 08/20/2022 2:33 PM EST Exam/Procedure: XR HAND WRIST BILATERAL 2 VIEWS, XR FOOT RIGHT 3+ VIEWS, XR FOOT LEFT 3+ VIEWS ordered by SERGEY GRIGSBY CLINICAL INDICATION: hand pain, possible inflammatory arthritis TECHNIQUE: XR HAND WRIST BILATERAL 2 VIEWS, XR FOOT RIGHT 3+ VIEWS, XR FOOT LEFT 3+ VIEWS COMPARISON: None. FINDINGS: Left hand and wrist: Mild degenerative changes of the first interphalangeal joint. No acute fracture or dislocation. Right hand and wrist: Joint spaces are well-maintained. No acute fracture or dislocation. Mild lucency about the fourth carpometacarpal joint, nonspecific and can be seen in the setting of erosion. Left foot: Limited evaluation of the forefoot given nonweightbearing view. Mild degenerative change of the first metatarsophalangeal joint. Small plantar calcaneal enthesophyte. No acute fracture or dislocation. Right foot: 6 mm linear metallic density plantar to the first distal phalanx, concerning for retained radiopaque foreign body. Mild degenerative change of the first metatarsophalangeal joint. Limited evaluation of the forefoot given nonweightbearing view. Mild degenerative changes of the talonavicular joint. Small plantar calcaneal enthesophyte. No acute fracture or dislocation. Procedure Note Pat Junior MD - 08/20/2022 Exam/Procedure: XR HAND WRIST BILATERAL 2 VIEWS, XR FOOT RIGHT 3+ VIEWS,XR FOOT LEFT 3+ VIEWS ordered by SERGEY GRIGSBY CLINICAL INDICATION: hand pain, possible inflammatory arthritis TECHNIQUE: XR HAND WRIST BILATERAL 2 VIEWS, XR FOOT RIGHT 3+ VIEWS, XR FOOT LEFT 3+VIEWS COMPARISON: None. FINDINGS: Left hand and wrist: Mild degenerative changes of the firstinterphalangeal joint. No acute fracture or dislocation. Right hand and wrist: Joint spaces are well-maintained. No acute fractureor dislocation. Mild lucency about the fourth carpometacarpal joint,nonspecific and can be seen in the setting of erosion. Left foot: Limited evaluation of the forefoot given nonweightbearing view.Mild degenerative change of the first metatarsophalangeal joint. Smallplantar calcaneal enthesophyte. No acute fracture or dislocation. Right foot: 6 mm linear metallic density plantar to the first distalphalanx, concerning for retained radiopaque foreign body. Milddegenerative change of the first metatarsophalangeal joint. Limitedevaluation of the forefoot given nonweightbearing view. Mild degenerativechanges of the talonavicular joint. Small plantar calcaneal enthesophyte.No acute fracture or dislocation. IMPRESSION: 1.Left hand and wrist: No erosion. 2.Right hand and wrist: Nonspecific lucency at the fourth carpometacarpaljoint, which can be seen in the setting of erosion. 3.Left foot: No erosion. 4.Right foot: Finding concerning for a 6 mm radiopaque foreign bodyplantar to the first distal phalanx. No erosion. CRITICAL RESULT: No. COMMUNICATION: Per this written report. Dictated by Pat Junior MD on 08/20/2022 2:25 PM Signed by Pat Junior MD on 08/20/2022 2:33 PM us Sergey Grigsby PA IMG XR PROCEDURES Final Result documented in this encounter Visit Diagnoses Diagnosis Positive anti-CCP test documented in this encounter Additional Health Concerns Assessment Noted Time A fall risk assessment has been complete d for the patient 08/20/2022 12:23 PM EST A Body Mass Index follow-up plan has been documented for the patient 08/20/2022 1:25 PM EST documented as of this encounter Care Teams Dietetic Technician Relationship Specialty Start Date End Date Salazar Orozco APRN [address] [place], [place] [id number] PCP - General 08/09/22 10/29/23 documented as of this encounter
--- OUTSIDE RECORDS SUMMARY | 2024-06-25 10:08 | XMS_ITS | Encounter Summary ---
Author Organization [facility] Address [address] [place] [address] Care Team Providers Care Crisis Counselor Name Role Phone Salazar Orozco APRN Primary Care Provider Encounter Details Date Type Department Care Team (Latest Contact Info) Description 10/03/2022 Travel Social History Tobacco Use Types Packs/Day Years [...] suspected to have Coronavirus/COVID-19? No / Unsure 10/03/2022 10:45 AM EDT documented as of this encounter Plan of Treatment Not on file documented as of this encounter Visit Diagnoses Not on filedocumented in this encounter Additional Health Concerns Assessment Noted Time A fall risk assessment has been complete d for the patient 08/20/2022 12:23 PM EST A Body Mass Index follow-up plan has been documented for the patient 08/20/2022 1:25 PM EST documented as of this encounter Care Teams Crisis Counselor Relationship Specialty Start Date End Date Salazar Orozco APRN [address] [place] [id number] PCP - General 08/09/22 10/29/23 documented as of this encounter
--- OUTSIDE RECORDS SUMMARY | 2024-06-25 10:08 | XMS_ITS | Clinical Summary ---
Author Organization [facility] Address [address] [place] [address] Care Team Providers Care Life Teacher Name Role Phone Jo Belle Primary Care Provider [phone] Allergies Active Allergy Reactions Criticality Noted Date Comments Sulfamethoxazole-Trimethopr im Shortness Of Breath High 10/07/2017 Codeine Shortness Of Breath High 10/07/2017 Morphine And Codeine Shortness Of Breath High 2017 Penicillins Rash Low 10/07/2017 Sulfa Antibiotics Shortness Of Breath High 8 And Swelling Medications No known medications Active Problems Problem Noted Date Diagnosed Date Lung nodule 10/08/2017 Family History Medical History Relation Name Comments Hyperlipidemia Mother Relation Name Status Comments Father Alive Mother Alive Social History Tobacco Use Types Packs/Day Years Used Date Smoking Tobacco: Every Day Cigarettes 1 27 Smokeless Tobacco: Never Alcohol Use Standard Drinks/Week Comments Yes 0 (1 standard drink = 0.6 oz pur e alcohol) Socially Abuse Screen Answer Date Recorded Unsafe at Home or Work/School Not on file Feels Threatened by Someone? Not on file 03/2023 Does Anyone Keep You from Co ntacting Others or Doint Things Outside the Home? Not on file 04/29/2023 Physical Sign of Abuse Present Not on file 1 Housing Stability Answer Date Recorded Current Living Arrangements Not on file 03/2023 Potentially Unsafe Housing Conditions Not on efren e 04/29/2023 Family and Community Support Answer Dung e Recorded Help with Day-to-Day Activities Not on file 04/29/2023 Lonely or Isolated Not on file 04/29/2023 Employment Answer Date Recorded Do you want help finding or keeping work or a carlton b? Not on file 04/29/2023 Disabilities Answer Date Recorded Concentrating, Remembering, or Making Decisions Difficulty Not on file 04/29/2023 Doing Errands Independently Difficulty Not on fi le 04/29/2023 Education Answer Date Recorded Help with school or training? Not on file Preferred Language Not on file 04/29/2023 Comments Unknown Sex and Gender Information Value Date Recorded Sex Assigned at Not on file Legal Sex Female 1:30 PM EDT Gender Identity Not on file Sexual Orientation Not on file Occupation Industry Job Start Date Job End Date [employer] Not on file Not on file Not on file Last Filed Vital Signs Vital Sign Reading Time Taken Comments Blood Pressure 120/90 04/02/2018 8:59 AM EDT Pulse 72 04/02/2018 8:59 AM EDT Temperature 37.3 ??C (99.2 ??F) 10/07/2017 2:11 PM ED T Respiratory Rate - - Oxygen Saturation 98% 04/02/2018 8:59 AM EDT Inhaled Oxygen Concentration - - Weight 58.1 kg (128 lb) 04/02/2018 8:59 AM EDT Height 170.2 cm (5' 7 ) 04/02/2018 8:59 AM EDT Body Mass Index 20.05 04/02/2018 8:59 AM EDT Plan of Treatment Health Maintenance Due Date Last Done Comments Annual Gynecologic Pelvic and Breast Exam 1975 COLOGUARD 1975 COLON CANCER SCREENING 5 YEAR SIGMOIDOSCOPY 1975 COLONOSCOPY 1975 COL[address]AL CANCER SCREENING 1975 CT COLONOGRAPHY 1975 FECAL OCCULT BLOOD TEST 1975 FIT Testing (1 year) 1975 Pneumococcal Vaccine 0-64 (1 of 2 - PCV) 1981 TDAP/TD VACCINES (1 - Tdap) 1994 MAMMOGRAM 2015 ANNUAL PHYSICAL 10/07/2017 HEPATITIS C SCREENING 10/07/2017 PAP SMEAR 10/07/2017 INFLUENZA VACCINE 01/20/2024 COVID-19 Vaccine ( - season) 2024 Insurance [employer] Care Teams Life Teacher Relationship Specialty Start Date End Date Jo Belle PA [address] [place] [address] [place] [address] PCP - General Family Medicine 10/07/17
--- OUTSIDE RECORDS SUMMARY | 2024-06-25 10:08 | XMS_ITS | Encounter Summary ---
Author Organization [facility] Address [address] [place] [address] Care Team Providers Care News Camera Person Name Role Phone Salazar Orozco APRN Primary Care Provider [phone] Encounter Details Date Type Department Care Team (Latest Contact Info) Description 08/20/2022 Travel Social History Tobacco Use Types Packs/Day [...] AM EST documented as of this encounter Plan of [...] documented as of this encounter Care Teams News Camera Person Relationship Specialty Start Date End Date Salazar Orozco APRN [address] [place] [address] PCP - General 08/09/22 10/29/23 documented as of this encounter
--- OUTSIDE RECORDS SUMMARY | 2024-06-25 10:08 | XMS_ITS | Encounter Summary ---
Author Organization [facility] Address [address] [place] [address] Care Team Providers Care Spring Tester Name Role Phone Jo Belle Primary Care Provider [phone] Reason for Visit * Reason Comments Consult LITHOGRAPHIC GENERAL WORKER per Jo virgen PA-C for Lung Nodule Encounter Details Date Type Department Care Team (Latest Contact Info) Description 10/07/2017 1:45 PM EDT Office Visit [facility] [address] [phone] Jamey Jaramillo MD Lung nodule (Primary Dx) [...] Sign Reading Time Taken Comments Blood Pressure 120/80 10/07/2017 2:11 PM EDT Pulse 82 10/07/2017 2:11 PM EDT Temperature 37.3 ??C (99.2 ??F) 10/07/2017 2:11 PM ED T Respiratory Rate - - Oxygen Saturation 98% 10/07/2017 2:11 PM EDT Inhaled Oxygen Concentration - - Weight 63 kg (139 lb) 10/07/2017 2:11 PM EDT Height 170.2 cm (5' 7 ) 10/07/2017 2:11 PM EDT Body Mass Index 21.77 10/07/2017 2:11 PM EDT documented in this encounter Progress Notes * Jamey Jaramillo MD - 10/07/2017 1:45 PM EDT 10/07/2017 Patient Information Adrianna Cao [address] [place] [id number] 1975 'PCP/Referring Physician' TACOS Mcclelland [phone] No ref. provider found Chief Complaint Patient presents with ??? Consult LITHOGRAPHIC GENERAL WORKER per Jo Belle PA-C for Lung Nodule History of Present Illness: The patient is a 42-year-old white female who is referred at this time for evaluation of the right and left lung nodule. The one on the right is 3 mm and one on the left is 5 mm. She also has some calcification in her right hilum which appears be consistent with granulomatous disease. She has been a smoker for approximately 27 years and has been around a lot of secondhand smoke from her mother.. Her mother also has COPD. She has had about a 20 pound weight loss over the last year. Jo Belle is evaluating this at this time. Patient Active Problem List Diagnosis ??? Lung nodule Past Medical History: Diagnosis Date ??? COPD (chronic obstructive pulmonary disease) ??? Lung nodule Past Surgical History: Procedure Laterality Date ??? [...] ??? Not on file Social History Narrative ??? No narrative on file Family History Problem Relation Age of Onset ??? No Known Problems Mother Review of Systems Constitution: Positive for malaise/fatigue, night sweats and weight loss (20 lbs since February 2017). Negative for chills and fever. HENT: Negative for hearing loss, odynophagia and sore throat. Cardiovascular: Positive for chest pain and dyspnea on exertion. Negative for leg swelling, orthopnea and palpitations. Respiratory: Positive for cough, shortness of breath and wheezing. Negative for hemoptysis. Endocrine: Negative for cold intolerance, heat intolerance, polydipsia, polyphagia and polyuria. Hematologic/Lymphatic: Does not bruise/bleed easily. Skin: Negative for itching and rash. Musculoskeletal: Positive for back pain and joint pain. Negative for joint swelling and myalgias. Gastrointestinal: Positive for constipation. Negative for abdominal pain, diarrhea, hematemesis, hematochezia, melena, nausea and vomiting. Genitourinary: Negative for dysuria, frequency and hematuria. Neurological: Negative for focal weakness, headaches, numbness and seizures. Psychiatric/Behavioral: Negative for suicidal ideas. All other systems reviewed and are negative. Vitals: 10/07/17 1411 BP: 120/80 BP Location: Left arm Patient Position: Sitting Pulse: 82 Temp: 99.2 ??F (37.3 ??C) SpO2: 98% Weight: 63 kg (139 lb) Height: 170.2 cm (67 ) Physical Exam Constitutional: She is oriented to person, place, and time. She appears well- developed and well-nourished. No distress. HENT: Head: Normocephalic. Eyes: EOM are normal. Pupils are equal, round, and reactive to light. Neck: Normal range of motion. Carotid bruit is not present. No thyromegaly present. Cardiovascular: Normal rate and regular rhythm. Exam reveals no gallop and no friction rub. No murmur heard. Pulmonary/Chest: She has no wheezes. She has no rales. Abdominal: Soft. Bowel sounds are normal. She exhibits no distension and no mass. There is no hepatomegaly. There is no tenderness. Musculoskeletal: Normal range of motion. She exhibits no deformity. Neurological: She is alert and oriented to person, place, and time. She has normal strength. No cranial nerve deficit or sensory deficit. Skin: No bruising and no petechiae noted. No cyanosis. Nails show no clubbing. Psychiatric: She has a normal mood and affect. Labs/Imaging: I obtained and reviewed her CT scan in detail. I concur with the radiologist that there is a 3 mm nodule in the right middle lobe and approximately a 5 mm nodule left lower lobe. Assessment/Plan: Ms. Cao is a 42-year-old female who is referred for two lung nodules. At this point, I think themost important thing would be for her to quit her smoking. I spent a great deal of time, 3-5 minutes, talking to her about the importance of smoking cessation. I have also emphasized that at this point the nodules are too small to be biopsied and a survey of a PET scan will be of no help. I think the best option will be to follow-up in about 6 months and get another CT scan. If these should grow,then consideration of biopsy or removing them would need to be entertained. I have answered all of her questions. She apparently had an abnormality in her right breast approximately 10-11 months ago.They have been following this and she will be seen again in approximately one month for this. I have emphasized the importance of close follow-up with mammography as well as with Jo and I will see her back tentatively in [address] scan. Patient Active Problem List Diagnosis ??? Lung nodule Signed by: Jamey Jaramillo M.D. 10/07/2017 CC: CARLOS Mcclelland, entomology professor, editing for Jamey Jaramillo M.D. IJamey MD, have read and agree with the editing done by kassi Teran. documented in this encounter Plan of Treatment Not on file documented as of this encounter Visit Diagnoses Diagnosis Lung nodule- Primary Other diseases of lung, not elsewhere classified documented in this encounter Care Teams Spring Tester Relationship Specialty Start Date End Date Jo Belle PA [facility] [address] [place] [id number] PCP - General Family Medicine 10/07/17 documented as of this encounter
--- OUTSIDE RECORDS SUMMARY | 2024-06-25 10:08 | XMS_ITS | Encounter Summary ---
Author Organization [facility] Address [address] [place] [address] Care Team Providers Care Lapel Baster Name Role Phone Salazar Orozco APRN Primary Care Provider Encounter Details Date Type Department Care Team (Late st Contact Info) Description 08/21/2022 Telephone [facility] Medicine Specialties [address] [place] [phone] Maryann San [facility] [address] [phone] Social History Tobacco Use Types Packs/Day Years [...] AM EST documented as of this encounter Miscellaneous Notes * Telephone Encounter - Maryann San - 08/21/2022 9:09 AM EST [facility] called returning a call to Estefany Grigsby regarding patient [phone] documented in this encounter Plan of Treatment [...] documented as of this encounter Care Teams Lapel Baster Relationship Specialty Start Date End Date Salazar Orozco APRN [address] [place] [address] PCP - General 08/09/22 10/29/23 documented as of this encounter
--- OUTSIDE RECORDS SUMMARY | 2024-06-25 10:08 | XMS_ITS | Encounter Summary ---
Author Organization [facility] Address [address] [place] [address] Care Team Providers Care Hearing Stenographer Name Role Phone Adonis Grimes MD Primary Care Provider [phone] Encounter Details Date Type Department Care Team (Latest Contact Info) Description 04/29/2024 Travel Social History Tobacco Use Types Packs/Day Years Used Date Smoking Tobacco: Every Day Cigarettes 1 15 Smokeless Tobacco: Never Alcohol Use Standard Drinks/Week Comments Never 0 [...] on file Sexual Orientation Not on file documented as of this encounter Plan of [...] documented as of this encounter Care Teams Hearing Stenographer Relationship Specialty Start Date End Date Adonis Grimes MD [address] [place] [address] PCP - General 10/30/23 documented as of this encounter
--- OUTSIDE RECORDS SUMMARY | 2024-06-25 10:08 | XMS_ITS | Encounter Summary ---
Author Organization [facility] Address [address] [place] [address] Care Team Providers Care Furniture Designer Name Role Phone Jo Belle Primary Care Provider [phone] Encounter Details Date Type Department Care Team (Late st Contact Info) Description 03/07/2018 Telephone [facility] [address] [phone] Belle Hewitt, Shanelle Rep Social History Tobacco Use Types Packs/Day Years [...] encounter Miscellaneous Notes * Telephone Encounter - Belle Hewitt - 03/07/2018 10:20 AM EDT PT CALLING TO SCHEDULE 6 MONTH F/U. PT INSURANCE HAS CHANGED AND IS LOADED IN SYSTEM. documented in this encounter Plan of Treatment Not on file documented as of this encounter Visit Diagnoses Not on filedocumented in this encounter Care Teams Furniture Designer Relationship Specialty Start Date End Date Jo Belle PA [address] [phone] PCP - General Family Medicine 10/07/17 documented as of this encounter
--- OUTSIDE RECORDS SUMMARY | 2024-06-25 10:08 | XMS_ITS | Encounter Summary ---
Author Organization [facility] Address [address] [place] [address] Care Team Providers Care Coordinate Measuring Machine Operator Name Role Phone Salazar Orozco APRN Primary Care Provider [phone] Reason for Referral * Imaging (Routine) - Closed Specialty Diagnoses / Procedures Referred By Contac t Referred To Contact Radiology Diagnoses Pain in both hands Procedures US Extremity Limited MSK or Soft Tissue Right; Hand Sergey Grigsby PA [address] [address] Phone: tel: fax: Referral ID Status Reason Start Date Expiration Date Visits Re quested Visits Authorized [id number] Closed 08/31/2022 03/01/2024 1 1 * Imaging (Routine) - Closed Specialty Diagnoses / Procedures Referred By Contac t Referred To Contact Radiology Diagnoses Pain in both hands Procedures US Extremity Limited MSK or Soft Tissue Left; Hand Sergey Grigsby PA [address] [address] Phone: tel: fax: Referral ID Status Reason Start Date Expiration Date Visits Re quested Visits Authorized [id number] Closed 08/31/2022 03/01/2024 1 1 Reason for Visit * Imaging (Routine) - Closed Specialty Diagnoses / Procedures Referred By Contac t Referred To Contact Radiology Diagnoses Pain in both hands Procedures US Extremity Limited MSK or Soft Tissue Right; Hand Sergey Grigsby PA [address] [place] [address] Phone: tel: fax: Referral ID Status Reason Start Date Expiration Date Visits Re quested Visits Authorized [id number] Closed 08/31/2022 03/01/2024 1 1 Encounter Details Date Type Department Care Team (Latest Contact Info) Description 10/10/2022 2:37 PM EDT - 10/10/2022 11:59 PM EDT Hospital Encounter [facility] Radiology [address] [place] [address] Pain in both hands Discharge Disposition: Home or Self Care Social [...] suspected to have Coronavirus/COVID-19? No / Unsure 10/10/2022 2:30 PM EDT documented as of this encounter Medications at [...] Procedure Name Priority Date/Time Associated Diagnosis Comments US EXTREMITY LIMITED MSK OR SOFT TISSUE Routine 10/10/2022 4:32 PM EDT Pain in both hands US EXTREMITY LIMITED MSK OR SOFT TISSUE Routine 10/10/2022 4:32 PM EDT Pain in both hands documented in this encounter Results * US Extremity Limited MSK or Soft Tissue Right; Hand (10/10/2022 4:32 PM EDT) Anatomical Region Laterality Modality Upper Extremities, Lower Extremities Ultrasound Impressions 10/11/2022 12:19 PM EDT No suspicious findings are seen to suggest an inflammatory arthropathy. CRITICAL RESULT: ?? No. COMMUNICATION: Per this written report. Dictated by Didier Lara MD on 10/11/2022 12:17 PM Signed by Didier Lara MD on 10/11/2022 12:19 PM Narrative 10/11/2022 12:19 PM EDT Exam/Procedure: US EXTREMITY LIMITED MSK OR SOFT TISSUE ordered by SERGEY GRIGSBY [id number] CLINICAL INDICATION: Evaluate for inflammatory arthropathy. TECHNIQUE: US EXTREMITY LIMITED MSK OR SOFT TISSUE, US EXTREMITY LIMITED MSK OR SOFT TISSUE. Real-time grayscale and color Doppler imaging of both hands and wrists were performed according to protocol by an nuclear medicine pet ct technologist. COMPARISON: Radiographs dated 08/20/2022. FINDINGS: No synovial hypertrophy is identified. No hyperemia is seen. The irregularity of the left index finger radial sided dorsal PIP I do not think represents erosions; no erosions are seen on either hand or wrist. No tendinosis. No tenosynovial fluid is seen. No joint effusion is identified. Procedure Note Didier Lara MD - 10/11/2022 Exam/Procedure: US EXTREMITY LIMITED MSK OR SOFT TISSUE ordered by SERGEY NAYAK [id number] CLINICAL INDICATION: Evaluate for inflammatory arthropathy. TECHNIQUE: US EXTREMITY LIMITED MSK OR SOFT TISSUE, US EXTREMITY LIMITED MSK OR SOFTTISSUE. Real-time grayscale and color Doppler imaging of both hands andwrists were performed according to protocol by an ultrasoundtechnologist. COMPARISON: Radiographs dated 08/20/2022. FINDINGS: No synovial hypertrophy is identified. No hyperemia is seen. Theirregularity of the left index finger radial sided dorsal PIP I do notthink represents erosions; no erosions are seen on either hand or wrist.No tendinosis. No tenosynovial fluid is seen. No joint effusion isidentified. IMPRESSION: No suspicious findings are seen to suggest an inflammatory arthropathy. CRITICAL RESULT: No. COMMUNICATION: Per this written report. Dictated by Didier Lara MD on 10/11/2022 12:17 PM Signed by Didier Lraa MD on 10/11/2022 12:19 PM us Sergey BALDERRAMA IMG US PROCEDURES Final Result * US Extremity Limited MSK or Soft Tissue Left; Hand (10/10/2022 4:32 PM EDT) Anatomical Region Laterality Modality Upper Extremities, Lower Extremities Ultrasound Impressions 10/11/2022 12:19 PM EDT No suspicious findings are seen to suggest an inflammatory arthropathy. CRITICAL RESULT: ?? No. COMMUNICATION: Per this written report. Dictated by Didier Lara MD on 10/11/2022 12:17 PM Signed by Didier Lara MD on 10/11/2022 12:19 PM Narrative 10/11/2022 12:19 PM EDT Exam/Procedure: US EXTREMITY LIMITED MSK OR SOFT TISSUE ordered by SERGEY GRIGSBY, [id number] CLINICAL INDICATION: Evaluate for inflammatory arthropathy. TECHNIQUE: US EXTREMITY LIMITED MSK OR SOFT TISSUE, US EXTREMITY LIMITED MSK OR SOFT TISSUE. Real-time grayscale and color Doppler imaging of both hands and wrists were performed according to protocol by an nuclear medicine pet ct technologist. COMPARISON: Radiographs dated 08/20/2022. FINDINGS: No synovial hypertrophy is identified. No hyperemia is seen. The irregularity of the left index finger radial sided dorsal PIP I do not think represents erosions; no erosions are seen on either hand or wrist. No tendinosis. No tenosynovial fluid is seen. No joint effusion is identified. Procedure Note Didier Lara MD - 10/11/2022 Exam/Procedure: US EXTREMITY LIMITED MSK OR SOFT TISSUE ordered by SERGEY NAYAK, [id number] CLINICAL INDICATION: Evaluate for inflammatory arthropathy. TECHNIQUE: US EXTREMITY LIMITED MSK OR SOFT TISSUE, US EXTREMITY LIMITED MSK OR SOFTTISSUE. Real-time grayscale and color Doppler imaging of both hands andwrists were performed according to protocol by an ultrasoundtechnologist. COMPARISON: Radiographs dated 08/20/2022. FINDINGS: No synovial hypertrophy is identified. No hyperemia is seen. Theirregularity of the left index finger radial sided dorsal PIP I do notthink represents erosions; no erosions are seen on either hand or wrist.No tendinosis. No tenosynovial fluid is seen. No joint effusion isidentified. IMPRESSION: No suspicious findings are seen to suggest an inflammatory arthropathy. CRITICAL RESULT: No. COMMUNICATION: Per this written report. Dictated by Didier Lara MD on 10/11/2022 12:17 PM Signed by Didier Lara MD on 10/11/2022 12:19 PM us Sergey BALDERRAMA IMG US PROCEDURES Final Result documented in this encounter Visit Diagnoses Diagnosis Pain in both hands documented in this encounter Additional Health Concerns Assessment Noted Time A fall risk assessment has been complete d for the patient 08/20/2022 12:23 PM EST A Body Mass Index follow-up plan has been documented for the patient 08/20/2022 1:25 PM EST documented as of this encounter Care Teams Coordinate Measuring Machine Operator Relationship Specialty Start Date End Date Salazar Orozco APRN [address] [place] [address] PCP - General 08/09/22 10/29/23 documented as of this encounter
--- OUTSIDE RECORDS SUMMARY | 2024-06-25 10:08 | XMS_ITS | Encounter Summary ---
Author Organization [facility] Address [address] [place] [address] Care Team Providers Care Entry Rep Name Role Phone Salazar Orozco APRN Primary Care Provider Encounter Details Date Type Department Care Team (Late st Contact Info) Description 08/20/2022 Telephone [facility] Medicine Specialties [address] [place] [address] Evon Gtz Social History Tobacco Use Types Packs/Day Years [...] encounter Miscellaneous Notes * Telephone Encounter - Evon Gtz - 08/20/2022 2:54 PM EST Called [facility] to obtain patient records. They are faxing to [phone]. documented in this encounter Plan of Treatment [...] documented as of this encounter Care Teams Entry Rep Relationship Specialty Start Date End Date Salazar Orozco APRN [address] [place] [address] PCP - General 08/09/22 10/29/23 documented as of this encounter
--- OUTSIDE RECORDS SUMMARY | 2024-06-25 10:08 | XMS_ITS | Encounter Summary ---
Author Organization [facility] Address [address] [place] [address] Care Team Providers Care Pin Drafting Machine Operator Name Role Phone Salazar Orozco APRN Primary Care Provider Encounter Details Date Type Department Care Team (Latest Contact Info) Description 10/10/2022 Travel Social History Tobacco Use Types Packs/Day [...] PM EDT documented as of this encounter Plan [...] documented as of this encounter Care Teams Pin Drafting Machine Operator Relationship Specialty Start Date End Date Salazar Orozco APRN [address] [place] [address] PCP - General 08/09/22 10/29/23 documented as of this encounter
--- OUTSIDE RECORDS SUMMARY | 2024-06-25 10:08 | XMS_ITS | Encounter Summary ---
Author Organization [facility] Address [address] [place] [address] Care Team Providers Care Pony Edger Name Role Phone Adonis Grimes MD Primary Care Provider [phone] Encounter Details Date Type Department Care Team (Latest Contact Info) Description 10/30/2023 Travel Social History Tobacco Use Types Packs/Day [...] documented as of this encounter Care Teams Pony Edger Relationship Specialty Start Date End Date Adonis Grimes MD [address] [place] [address] PCP - General 10/30/23 documented as of this encounter
--- OUTSIDE RECORDS SUMMARY | 2024-06-25 10:08 | XMS_ITS | Encounter Summary ---
Author Organization [facility] Address [address] [place] [address] Care Team Providers Care Pipe Insulator Name Role Phone Salazar Orozco APRN Primary Care Provider [phone] Reason for Referral * Imaging (Routine) - Closed Specialty Diagnoses / Procedures Referred By Contac t Referred To Contact Radiology Diagnoses Pain in both hands Procedures US Extremity Limited MSK or Soft Tissue Right; Hand Sergey Grigsby PA [address] [address] Phone: tel: fax: Referral ID Status Reason Start Date Expiration Date Visits Re quested Visits Authorized [id number] Closed 08/31/2022 03/01/2024 1 1 * Imaging (Routine) - Closed Specialty Diagnoses / Procedures Referred By Contac t Referred To Contact Radiology Diagnoses Pain in both hands Procedures US Extremity Limited MSK or Soft Tissue Left; Hand Sergey Grigsby PA [address] [address] Phone: tel: fax: Referral ID Status Reason Start Date Expiration Date Visits Re quested Visits Authorized [id number] Closed 08/31/2022 03/01/2024 1 1 Reason for Visit * Reason Comments Consult * Consultation (Routine) - Closed Specialty Diagnoses / Procedures Referred By Contac t Referred To Contact Rheumatology Diagnoses Elevated erythrocyte sedimentation rate Positive anti-CCP test Juanis Escoto PA [address] [place] [address] Referral ID Status Reason Start Date Expiration Date V isits Requested Visits Authorized [id number] Closed Specialty Services Required 08/08/2022 02/07/2024 1 1 Encounter Details Date Type Department Care Team (Late st Contact Info) Description 08/20/2022 12:20 PM EST Consult [facility] [address] [place] [address] Sergey Grigsby PA [address] [place] [address] Positive anti-CCP test (Primary Dx); Inflammation of eye; Elevated erythrocyte sedimentation rate; Rash and other nonspecific skin eruption; Pain in both hands Social History Tobacco Use Types Packs/Day Years Used Date Smoking Tobacco: Every Day Cigarettes 1 15 Smokeless Tobacco: Never Tobacco Cessation:Ready to Q uit: Not Asked; Counseling Given: Not Answered PHQ-2 Answer Date Recorded Patient Health Questionnaire-2 [...] AM EST documented as of this encounter Last Filed Vital Signs Vital Sign Reading Time Taken Comments Blood Pressure 119/77 08/20/2022 12:16 PM EST Pulse 97 08/20/2022 12:16 PM EST Temperature - - Respiratory Rate - - Oxygen Saturation 99% 08/20/2022 12:16 PM EST Inhaled Oxygen Concentration - - Weight 74.5 kg (164 lb 3.9 oz) 08/20/2022 12:16 PM EST Height 170.2 cm (5' 7 ) 08/20/2022 12:16 PM EST Body Mass Index 25.72 08/20/2022 12:16 PM EST documented in this encounter Miscellaneous Notes * Addendum Note - Sergey Grigsby PA - 08/20/2022 12:20 PM ESTAddended by: SERGEY GRIGSBY on: 08/31/2022 01:32 PM Modules accepted: Orders * Progress Notes - Sergey Grigsby PA - 08/20/2022 12:20 PM EST Images from the original note were not included. Subjective Patient ID: Adrianna Cooper is a 47 y.o. female with elevated inflammatory markers and Anti CCP + 51. HPI Adrianna Cooper is a 47 y.o. female with PMH significant for lung nodule, shingles, nummular dermatitis, hx hereditary ichthyosis, HLD, who presents as a new consult evaluation for elevated inflammatory markers and Anti CCP + 51. Pt was referred by Juanis Escoto. Referral note and labs reviewed: Referred due to elevated inflammatory markers and Anti CCP + 51. Today reports pain daily in hands, primarily in right wrist. In mornings, wakes up with subjective swelling and stiffness in hands lasting about 30 mins to hour. 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 Also with left foot great toe intermittently swollen and painful. Chronic left shoulder and neck pain. 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 Getting nodules on left wrist. In general, feels unwell. Onset around 2018, lost significant amt of weight, found incidental several lung nodule that has been stable. Reports rash around eyes about once a month lasting about 3 days (as in pictures). With last episode saw Nelly and was told it is inflammation/ RA in eyes (clinic called [facility], Hollie [facility]). Started her on steroids and tacrolimus drops, follow up with them scheduled today. She has intermittent rash on legs/ lower extremities (as in pictures) on and off since 2018. No biopsy. No muscle weakness. Rheumatological ROS positive for dry mouth (drinks a lot of water), tried Biotene that helps some. Hx pleurisy x3. hx hereditary ichthyosis. Rest ROS negative for dry eyes, oral ulcers, nasal ulcers, alopecia, serositis, psoriasis, rash, photosensitivity, Raynaud's symptoms or digit ulcerations, renal disease or macroscopic hematuria, psychosis or delirium, seizures, IBD, blood clots, or miscarriages. Family History: Sister has Maddy's. Social History: No known exposure to HCV or HIV. No hx IV drug use. Review of Systems Constitutional: Negative for chills and fever. HENT: Negative for mouth sores. Eyes: Negative for pain, redness and visual disturbance. Respiratory: Negative for cough and shortness of breath. Cardiovascular: Negative for chest pain and palpitations. Gastrointestinal: Negative for diarrhea and nausea. Genitourinary: Negative for hematuria. Musculoskeletal: See HPI Skin: Negative for rash. Neurological: Negative for seizures. Psychiatric/Behavioral: Negative for hallucinations. The following portions of the chart were reviewed this encounter and updated as appropriate: Past Medical History: Diagnosis Date Low back pain 2011 Past Surgical History: Procedure Laterality Date LUMBAR DISCECTOMY 09/2012 TOTAL ABDOMINAL HYSTERECTOMY Social History Socioeconomic History Marital status: Spouse name: Not on file Number of children: Not on file Years of education: Not on file Highest education level: Not on file Occupational History Not on file Tobacco Use Smoking status: Every Day Packs/day: 1.00 Years: 15.00 Pack years: 15.00 Types: Cigarettes Smokeless tobacco: Never Substance and Sexual Activity Alcohol use: Not on file Drug use: Not on file Sexual activity: Not on file Other Topics Concern Not on file Social History Narrative Not on file Social Determinants of Health Financial Resource Strain: Not on file Food Insecurity: Not on file Transportation Needs: Not on file Physical Activity: Not on file Stress: Not on file Social Connections: Not on file Intimate Partner Violence: Not on file Housing Stability: Not on file Family History Problem Relation Name Age of Onset Hepatitis, C Virus Mother Margareth Gutierrez Autoimmune disease Sister Gali Porter Allergies Allergen Reactions Codeine Anaphylaxis Morphine Anaphylaxis Sulfa Drugs Anaphylaxis Aspirin Runny nose Current Outpatient Medications Medication Sig Dispense Refill acetaminophen (Tylenol) 325 MG tablet Take 650 mg by mouth if needed. co-enzyme Q-10 30 MG capsule Take 30 mg by mouth 1 (one) time each day. diphenhydrAMINE-acetaminophen (Tylenol PM) 25-500 MG per tablet Take 1 tablet by mouth every night. methylPREDNISolone (Medrol Dospak) 4 MG tablets TAKE BY MOUTH DIRECTED ON INSIDE OF PACKAGE prednisoLONE acetate (Pred-Forte) 1 % ophthalmic suspension simvastatin (Zocor) 10 MG tablet Take 10 mg by mouth 1 (one) time each day. tacrolimus (Protopic) 0.03 % ointment No current facility-administered medications for this visit. Objective Vitals: 08/20/22 1216 BP: 119/77 Pulse: 97 SpO2: 99% Physical Exam Vitals reviewed. Constitutional: General: She is not in acute distress. Musculoskeletal: General: Normal range of motion. Comments: Digits and nails were normal. See homunculus. Joints had a normal ROM and normal alignment. Reduced ROM left shoulder Skin: Findings: No rash. Neurological: Mental Status: She is alert. Psychiatric: Mood and Affect: Mood normal. Joint Exam 08/20/2022 All documented joints were normal 08/20/2022 NAVARRO-28 (ESR) -- NAVARRO-28 (CRP) -- Tender (NAVARRO-28) 0 / 28 Swollen (NAVARRO-28) 0 / 28 Provider Global -- Patient Global -- ESR -- CRP -- Swollen Joint Count: Swollen: 0 Tender Joint Count: Tender: 0 Patient global assessment: 4.5/10 Rapid 3 score: 13.7/30 Assessment/Plan Diagnosis Plan 1. Positive anti-CCP test Ambulatory referral to Rheumatology C-Reactive Protein, Plasma Sedimentation Rate, Automated XR Foot Left 3+ Views XR Foot Right 3+ Views XR Hand and Wrist Bilateral 2 Views Cyclic Citrul Peptide Antibody IgG Rheumatoid Factor, Plasma Acute Hepatitis Panel 2. Inflammation of eye 3. Elevated erythrocyte sedimentation rate Ambulatory referral to Rheumatology 4. Rash and other nonspecific skin eruption Antinuclear Antibody (BOSSMAN), HEp-2, IgG Double-Stranded DNA (dsDNA) Antibody, IgG by IFA C3 Complement C4 Complement Creatinine, Random, Urine ENAI ENAII Protein, Random, Urine with Creatinine Greenberg (MILLA) Antibody, IgG Urinalysis with reflex microscopic CBC and Differential Creatinine, Plasma Hepatic Function Panel Creatine Kinase (CK), Total Aldolase Lactate dehydrogenase Myositis Antibody Panel (SO) ANCA Vasculitis Profile Cryoglobulin, Qual with Reflex to RAMESH Typing Glomerular basement membrane antibodies SSB (La) (MILLA) Antibody, IgG Anti CCP positive on referring 2. Polyarthralgia 3. Possible heliotrope rash 4. Rash on lower extremities Referral with + CCP and hand pain concerning for RA though no synovitis or tender joint on exam. Symptoms per hx wax/waning. Rash (in photo) around eyes concerning for heliotrope rash. No muscle weakness. Intermittent rash (in photos) on lower extremities of unknown etiology - Repeat RF, CCP, CRP/SED and xray hands/feet - Vasculitis panel, myositis panel, CK, aldolase, LDH - recommend seeing her nanny caregiver for skin biopsy when rash present 5. Inflammation in eye Will request records from [facility], recommend continued follow up. May need additional workup depending on Ophth dx. RTC 2-3 months (with MD or fellow given complexity) The patient was counseled about diagnostic results, instruction for management, risk factors reduction, prognosis, compliance with visits and treatment, risks and benefits of treatments options. Prior notes (by external physicians) and results were reviewed by me with independent interpretation of labs and imaging. My note ill be sent to PCP and other consulting physicians. ADDENDUM 08/24/22: spoke with [facility] at [facility] , patient is being treated for simple iritis.She noted patient also has eye lid irritation possible eczema vs seborrheic dermatitis of eye lids.Notes have been faxed to us. Per Oph, no concern for uveitis or vascular disorder. ADDENDUM 08/31/22: Results received/ reviewed. CRP/SED wnl RF and CCP negative. Hepatitis panel negative. BOSSMAN negative Neg: dsDNA, anti greenberg, REAL ESTATE RECRUITER, SSA, SSB Complements wnl Urine protein/cr ratio 0.1. UA unremarkable CBC with WBC (20.17), Hgb 16, plt wnl. Cr 0.78, LFTs wnl CK, aldolase, LDH wnl Myositis panel: negative. ANCA vasculitis panel negative. Glomerular basement membrane Ab neg. Xrays: Left hand and wrist: No erosion. Right hand and wrist: Nonspecific lucency at the fourth carpometacarpal joint, which can be seen inthe setting of erosion. Left foot: No erosion. Right foot: Finding concerning for a 6 mm radiopaqueforeign body plantar to the first distal phalanx. No erosion. - Given above negative workup, low concern for underlying autoimmune disease. Suspect rash around eyes was eye lid irritation possible eczema vs seborrheic dermatitis as seen by her eye doctor. No rash present at initial consult. Rash on LE unknown etiology, advise she see dermatology for biopsy / evaluation. Vasculitis workup negative. Discussed with eye doctor and pt was dx with simple iritis, no concern for underlying autoimmune disease or uveitis or vascular disorder. - given hand pain, will recommend hand US at follow up for further workup of Nonspecific lucency atthe fourth carpometacarpal joint, which can be seen in the setting of erosion. RF and CCP negative here. - dermatology referral given documented in this encounter Plan of Treatment Not on file documented as of this encounter Results * US Extremity Limited [...] OR SOFT TISSUE ordered by SERGEY GRIGSBY, [id number] CLINICAL INDICATION: Evaluate for inflammatory arthropathy. TECHNIQUE: US EXTREMITY LIMITED MSK OR SOFT TISSUE, US EXTREMITY LIMITED MSK OR SOFT TISSUE. Real-time grayscale and color Doppler imaging of both hands and wrists were performed according to protocol by an dairy manufacturing technologist. COMPARISON: Radiographs dated 08/20/2022. FINDINGS: No [...] OR SOFT TISSUE ordered by SERGEY NAYAK [id number] CLINICAL INDICATION: Evaluate for inflammatory arthropathy. TECHNIQUE: [...] OR SOFT TISSUE ordered by SERGEY GRIGSBY [id number] CLINICAL INDICATION: Evaluate for inflammatory arthropathy. TECHNIQUE: US EXTREMITY LIMITED MSK OR SOFT TISSUE, US EXTREMITY LIMITED MSK OR SOFT TISSUE. Real-time grayscale and color Doppler imaging of both hands and wrists were performed according to protocol by an dairy manufacturing technologist. COMPARISON: Radiographs dated 08/20/2022. FINDINGS: No [...] OR SOFT TISSUE ordered by SERGEY NAYAK, [id number] CLINICAL INDICATION: Evaluate for inflammatory arthropathy. TECHNIQUE: [...] Didier Lara MD on 10/11/2022 12:19 PM Sergey BALDERRAMA IMeNry US PROCEDURES Final Result * XR Hand and [...] Per this written report. Dictated by Pat Jnuior MD on 08/20/2022 2:25 PM Signed by [...] MD on 08/20/2022 2:33 PM us Sergey BALDERRAMA IMG XR PROCEDURES Final Result * XR Foot Right 3+ Views (08/20/2022 [...] MD on 08/20/2022 2:33 PM us Sergey BALDERRAMA IMG XR PROCEDURES Final Result * Urinalysis with reflex microscopic (08/20/2022 1:34 PM EST) Color, Urine Yellow LAB URINALYSIS - AUTOMATED METHOD 08/20/2022 2:56 PM EST [facility] Clarity, Urine Cloudy LAB URINALYSIS - AUTOMATED METHOD 08/20/2022 2:56 PM EST [facility] Spec [place], Urine 1.018 <=1.005 to >=1.030 LAB URINALYSIS - AUTOMATED METHOD 08/20/2022 2:56 PM EST [facility] pH, Urine 5.5 4.5 to 8 LAB URINALYSIS - AUTOMATED METHOD 08/20/2022 2:56 PM EST [facility] Protein, Urine Negative Negative mg/dL LAB URINALYSIS - AUTOMATED METHOD 08/20/2022 2:56 PM EST [facility] Glucose, Urine Negative Negative mg/dL LAB URINALYSIS - AUTOMATED METHOD 08/20/2022 2:56 PM EST [facility] Ketones, Urine Negative Negative mg/dL LAB URINALYSIS - AUTOMATED METHOD 08/20/2022 2:56 PM EST [facility] Blood, Urine Negative Negative LAB URINALYSIS - AUTOMATED METHOD 08/20/2022 2:56 PM EST [facility] Bilirubin, Urine Negative Negative LAB URINALYSIS - AUTOMATED METHOD 08/20/2022 2:56 PM EST [facility] Urobilinogen, Urine 0.2 0.2 to 1.0 mg/dL LAB URINALYSIS - AUTOMATED METHOD 08/20/2022 2:56 PM EST [facility] Leukocytes, Urine Negative Negative LAB URINALYSIS - AUTOMATED METHOD 08/20/2022 2:56 PM EST [facility] Nitrite, Urine Negative Negative LAB URINALYSIS - AUTOMATED METHOD 08/20/2022 2:56 PM EST [facility] Urine Urine specimen obtained by clean catch procedure / Unknown Non-blood Collection / Unknown 08/20/2022 1:34 PM EST 08/20/2022 1:35 PM EST us Sergey BALDERRAMA LAB URINE ORDERABLES Final Resul t [facility] [address] [place] [id number] * Protein, Random, Urine with Creatinine (08/20/2022 1:34 PM EST) Protein, Urine 8 mg/dL 08/20/2022 3:18 PM EST [facility] Creatinine, Urine 116 mg/dL 08/20/2022 3:18 PM EST [facility] Protein/Creati nine Ratio 0.1 mg/mg Creat 08/20/2022 3:18 PM EST [facility] Urine Urine specimen obtained by clean catch procedure / Unknown Non-blood Collection / Unknown 08/20/2022 1:34 PM EST 08/20/2022 1:35 PM EST Sergey Grigsby MA LAB URINE ORDERABLES Final Resul t Performing Organization Address City/State/[facility] Co de Phone Number [facility] [address] [place] [phone] * Glomerular basement membrane antibodies (08/20/2022 1:23 PM EST) GBM AB, IGG BY MULTIPLEX BEAD ASSAY 0 0 - 19 AU/mL 08/23/2022 3:22 PM EST [facility] ([facility]) Blood Venous blood specimen / Unknown Venipuncture / Unknown 08/20/2022 1:23 PM EST 08/20/2022 1:25 PM EST Narrative [facility] ([facility]) - 08/23/2022 3:22 PM EST INTERPRETIVE INFORMATION: GBM Ab, IgG by Multiplex Bead ?Assay ??19 AU/mL or Less ......... Negative ??20-25 AU/mL .............. Equivocal ??26 AU/mL or Greater ...... Positive The presence of anti-glomerular basement membrane (GBM) antibodies by Multiplex Bead Assay may aid in the diagnosis of Goodpasture syndrome. False positive results may occur due to reactivity against other chains of type IV collagen. If Multiplex Bead Assay is negative but there is a strong suspicion for disease, renal biopsy may be indicated. A renal biopsy may also be essential in ?? suspected Goodpasture disease with renal involvement, allowing diagnostic confirmation and assessment of renal prognosis. Performed By: [facility] [address] [place] [address] Heavy Antiarmor Weapons Infantryman: Harvinder Arita MD, PhD Sergey BALDERRAMA LAB BLOOD ORDERABLES Final Resul t [facility] ([employer]) [address] [place] [address] * ANCA Vasculitis Profile (08/20/2022 1:23 PM EST) Myeloperoxidase (MPO) Ab, IgG 0 0 - 19 AU/mL 08/25/2022 8:04 PM EST [facility] ([facility]) Serine Proteinase 3 (PR3) Ab, IgG 0 0 - 19 AU/mL 08/25/2022 8:04 PM EST [facility] ([facility]) ANCA IFA Titer <1:20 <1:20 08/25/2022 8:04 PM EST [facility] ([facility]) ANCA IFA Pattern None Detected None Detected 08/25/2022 8:04 PM EST [facility] ([facility]) Blood Venous blood specimen / Unknown Venipuncture / Unknown 08/20/2022 1:23 PM EST 08/20/2022 1:25 PM EST Narrative [facility] ([facility]) - 08/25/2022 8:04 PM EST INTERPRETIVE INFORMATION: Myeloperoxidase Abs, IgG ??19 AU/mL or Less ......... Negative ??20-25 AU/mL .............. Equivocal ??26 AU/mL or Greater ...... Positive Approximately 90% of patients with a P-ANCA pattern by IFA have antibodies specific for MPO. INTERPRETIVE INFORMATION: Serine Proteinase 3, IgG ??19 AU/mL or Less ........ Negative ??20-25 AU/mL ............. Equivocal ??26 AU/mL or Greater ..... Positive Approximately 85% of patients with a C-ANCA pattern by IFA have antibodies specific for PR3. INTERPRETIVE INFORMATION: ANCA IFA Pattern Neutrophil Cytoplasmic Antibodies (C-ANCA = granular cytoplasmic staining, P-ANCA = perinuclear staining) are found in the serum of over 90 percent of patients with certain necrotizing systemic vasculitides, and usually in less than 5 percent of patients with collagen vascular disease or arthritis. Performed By: [facility] [address] [place] [address] Heavy Antiarmor Weapons Infantryman: Harvinder Arita MD, PhD Sergey R[facility] BLOOD ORDERABLES Final Resul t [facility] ([facility]) [address] [place] [address] * Myositis Antibody Panel (SO) (08/20/2022 1:23 PM EST) Greenberg/REAL ESTATE RECRUITER (MILLA) Ab, IgG 4 0 - 19 Units 08/30/2022 10:32 PM EST [facility] ([facility]) SSA-52 (RO52) (MILLA) Antibody, IgG 1 0 - 40 AU/mL 08/30/2022 10:32 PM EST [facility] ([facility]) Radha-1 (Histidyl-tRNA Synthetase) Ab, IgG 0 0 - 40 AU/mL 08/30/2022 10:32 PM EST [facility] ([facility]) PM/Scl 100 Antibody, IgG Negative Negative 08/30/2022 10:32 PM EST [facility] ([facility]) WY-2 (NUCLEAR HELICASE PROTEIN) ANTIBODY Negative Negative 08/30/2022 10:32 PM EST [facility] ([facility]) PL-7 (THREONYL-TRNA SYNTHETASE) ANTIBODY Negative Negative 08/30/2022 10:32 PM EST [facility] ([facility]) PL-12 (ALANYL-TRNA SYNTHETASE) ANTIBODY Negative Negative 08/30/2022 10:32 PM EST [facility] ([facility]) P155/140 ANTIBODY Negative Negative 08/30/2022 10:32 PM EST [facility] ([facility]) EJ (GLYCYL-TRNA SYNTHETASE) ANTIBODY Negative Negative 08/30/2022 10:32 PM EST [facility] ([facility]) KU ANTIBODY Negative Negative 08/30/2022 10:32 PM EST [facility] ([facility]) SRP (SIGNAL RECOGNITION PARTICLE) AB Negative Negative 08/30/2022 10:32 PM EST [facility] ([facility]) OJ (ISOLEUCYL-TRNA SYNTHETASE) ANTIBODY Negative Negative 08/30/2022 10:32 PM EST [facility] ([facility]) SSA-60 (RO60) (MILLA) Antibody, IgG 0 0 - 40 AU/mL 08/30/2022 10:32 PM EST [facility] ([facility]) Fibrillarin (U3 REAL ESTATE RECRUITER) Ab, IgG Negative Negative 08/30/2022 10:32 PM EST [facility] ([facility]) MYOSITIS PANEL INTERPRETIVE DATA See Note 08/30/2022 10:32 PM EST [facility] ([facility]) SAE1 (SUMO ACTIVATING ENZYME) AB Negative Negative 08/30/2022 10:32 PM EST [facility] ([facility]) MDA5 (CADM-140) AB Negative Negative 08/30/2022 10:32 PM EST [facility] ([facility]) NXP2 (NUCLEAR MATRIX PROTEIN-2) AB Negative Negative 08/30/2022 10:32 PM EST [facility] ([facility]) TIF-1 GAMMA (155 KDA) AB Negative Negative 08/30/2022 10:32 PM EST [facility] ([facility]) Blood Venous blood specimen / Unknown Venipuncture / Unknown 08/20/2022 1:23 PM EST 08/20/2022 1:25 PM EST [facility] ([facility]) - 08/30/2022 10:32 PM EST INTERPRETIVE INFORMATION: Extended Myositis Panel If present, myositis-specific antibodies (MSA) are specific for myositis, and may be useful in establishing diagnosis as well as prognosis. MSAs are generally regarded as mutually exclusive with rare exceptions; the occurrence of two or more MSAs should be carefully evaluated in the context of patient's clinical presentation. Myositis-associated antibodies (MAA) may be found in patients with CTD including overlap syndromes, and are generally not specific for myositis. The following table will help in identifying the association of any antibodies found as either MSAs or Moustapha. Antibody Specificity . . . . . . . . . . . . MSA . . . . MAA SSA 52 (Ro) (MILLA) Antibody IgG . . . . . . . . . . . . . ??X SSA 60 (Ro) (MILLA) Antibody IgG . . . . . . . . . . . . . ??X Greenberg/REAL ESTATE RECRUITER (MILLA) Ab, IgG ??. . . . . . . . . . . . . . . . ??X Radha-1 (histidyl-tRNA synthetase) Ab, IgG ??. . ??X PL-12 (alanyl-tRNA synthetase) Antibody ??. . ??X PL-7 (threonyl-tRNA synthetase) Antibody . . ??X EJ (glycyl-tRNA synthetase) Antibody . . . . ??X OJ (isoleucyl-tRNA synthetase) Antibody ??. . ??X SRP (Signal Recognition Particle) Ab . . . . ??X Ku Antibody ??. . . . . . . . . . . . . . . . . . . . . . ??X PM/SCL 100 Antibody, IgG . . . . . . . . . . . . . . . . ??X Fibrillarin (U3 REAL ESTATE RECRUITER) Ab, IgG . . . . . . . . . . . . . . ??X Mi-2 (nuclear helicase protein) Antibody . . ??X P155/140 Antibody ??. . . . . . . . . . . . . ??X TIF-1 gamma (155 kDa) Ab . . . . . . . . . . ??X SAE1 (SUMO activating enzyme) Ab . . . . . . ??X MDA5 (CADM-140) Ab ?? . . . . . . . . . . . . ??X NXP2 (Nuclear matrix proten-2)Ab . . . . . . ??X This test was developed and its performance characteristics determined by [facility]. It has not been cleared or approved by the US Food and Drug Administration. This test was performed in a CLIA certified laboratory and is intended for clinical purposes. INTERPRETIVE INFORMATION: ??Radha-1 Antibody, IgG ??29 AU/mL or less.........Negative ??30-40 AU/mL..............Equivocal ??41 AU/mL or greater......Positive Presence of Radha-1 (antihistidyl transfer RNA [t-RNA] synthetase) antibody is associated with polymyositis and may also be seen in patients with dermatomyositis. Radha-1 antibody is associated with pulmonary involvement (interstitial lung disease), Raynaud phenomenon, arthritis, and radio communications mechanician's hands (implicated in antisynthetase syndrome). INTERPRETIVE INFORMATION: Greenberg/REAL ESTATE RECRUITER (MILLA) Antibody, IgG ??19 Units or Less ............. Negative ??20 to 39 Units ............... Weak Positive ??40 to 80 Units ............... Moderate Positive ??81 Units or greater .......... Strong Positive Greenberg/REAL ESTATE RECRUITER antibodies are frequently seen in patients with mixed connective tissue disease (MCTD) and are also associated with other systemic autoimmune rheumatic diseases (SARDs) such as systemic lupus erythematosus (SLE), systemic sclerosis, and myositis. Antibodies targeting the Greenberg/REAL ESTATE RECRUITER antigenic complex also recognize Greenberg antigens, therefore, the Greenberg antibody response must be considered when interpreting these results. INTERPRETIVE INFORMATION: PM/Scl-100 Antibody, IgG by ?Immunoblot The presence of PM/Scl-100 IgG antibody along with a positive BOSSMAN IFA nucleolar pattern is associated with connective tissue diseases such as polymyositis (PM), dermatomyositis (DM), systemic sclerosis (SSc), and polymyositis/systemic sclerosis overlap syndrome. The clinical relevance of PM/Scl-100 IgG antibody with a negative BOSSMAN IFA nucleolar pattern is unknown. PM/Scl-100 is the main target epitope of the PM/Scl complex, although antibodies to other targets not detected by this assay may occur. This test was developed and its performance characteristics determined by [facility]. It has not been cleared or approved by the US Food and Drug Administration. This test was performed in a CLIA certified laboratory and is intended for clinical purposes. INTERPRETIVE INFORMATION: SSA-52 (Ro52) (MILLA) Antibody, IgG ??29 AU/mL or Less ............. Negative ??30 - 40 AU/mL ................ Equivocal ??41 AU/mL or Greater .......... Positive SSA-52 (Ro52) and/or SSA-60 (Ro60) antibodies are associated with a diagnosis of Sjogren syndrome, systemic lupus erythematosus (SLE), and systemic sclerosis. SSA-52 antibody overlaps significantly with the major SSc-related antibodies. SSA-52 (Ro52) antibody occurs frequently in patients with inflammatory myopathies, often in the presence of interstitial lung disease. REFERENCE INTERVAL: SSA-60 (Ro60) (MILLA) Antibody, IgG ??29 AU/mL or Less ............. Negative ??30 - 40 AU/mL ................ Equivocal ??41 AU/mL or Greater .......... Positive Interpretive Information: Fibrillarin (U3 REAL ESTATE RECRUITER) Antibody, IgG The presence of fibrillarin (U3-REAL ESTATE RECRUITER) IgG antibodies in association with an BOSSMAN IFA nucleolar pattern is suggestive of systemic sclerosis (SSc). In SSc, these antibodies are associated with distinct clinical features, such as younger age at disease onset, frequent internal organ involvement (pulmonary hypertension, myositis and renal disease). Fibrillarin antibodies are detected more frequently in patients with SSc compared to other ethnic groups. Strong correlation with BOSSMAN IFA results is recommended. In a multi-ethnic cohort of SSc patients (n=98), U3-REAL ESTATE RECRUITER antibodies detected by immunoblot had an agreement of 98.9 percent with the gold standard immunoprecipitation (IP) assay. Approximately 71 percent (5/7) of the borderline U3-REAL ESTATE RECRUITER results with BOSMSAN nucleolar pattern in this cohort were IP negative. This test was developed and its performance characteristics determined by [facility]. It has not been cleared or approved by the [place] Food and Drug Administration. This test was performed in a CLIA certified laboratory and is intended for clinical purposes. Performed by [facility], [address], [place] [id number] [email or web address], Harvinder Arita MD, PHD, Lab. Director Sergey BALDERRAMA LAB BLOOD ORDERABLES Final Resul t [facility] ([place]) [address] [place] [address] * Lactate dehydrogenase (08/20/2022 1:23 PM EST) LDH, Plasma 237 116 - 250 U/L 08/20/2022 3:07 PM EST [facility] Blood Venous blood specimen / Unknown Venipuncture / Unknown 08/20/2022 1:23 PM EST 08/20/2022 1:25 PM EST Track LAB BLOOD ORDERABLES Final Resul t Performing Organization Address City/[facility]/ZIP Co de Phone Number [facility] [address] [place] [address] * Aldolase (08/20/2022 1:23 PM EST) ALDOLASE 7.2 1.2 - 7.6 U/L 08/23/2022 5:59 AM EST [facility] ([facility]) Blood Venous blood specimen / Unknown Venipuncture / Unknown 08/20/2022 1:23 PM EST 08/20/2022 1:25 PM EST Narrative [facility] ([place]) - 08/23/2022 5:59 AM EST REFERENCE INTERVAL: Aldolase Access complete set of age- and/or gender-specific reference intervals for this test in the [facility] Test Directory ([facility]). Performed By: [facility] [address] [place] [id number] Heavy Antiarmor Weapons Infantryman: Harvinder Arita MD, PhD [facility] LAB BLOOD ORDERABLES Final Resul t Performing Organization Address [facility] de Phone Number [facility] ([place]) [address] [place] [address] * Creatine Kinase (CK), Total (08/20/2022 1:23 PM EST) Creatine Kinase, Plasma 82 37 - 168 U/L 08/20/2022 3:07 PM EST [facility] Blood Venous blood specimen / Unknown Venipuncture / Unknown 08/20/2022 1:23 PM EST 08/20/2022 1:25 PM EST [facility] LAB BLOOD ORDERABLES Final Resul t [facility] [address] [place] [address] * (ABNORMAL) Hepatic Function Panel (08/20/2022 1:23 PM EST) Conjugated Bilirubin, Plasma <0.2 0.0 - 0.3 mg/dL 08/20/2022 3:07 PM EST [facility] Alkaline Phosphatase, Plasma 99 35 - 104 U/L 08/20/2022 3:07 PM EST [facility] Total Bilirubin, Plasma 0.4 0.2 - 1.1 mg/dL 08/20/2022 3:07 PM EST [facility] Albumin, Plasma 5.1 3.5 - 5.2 g/dL 08/20/2022 3:07 PM EST [facility] Total Protein 8.0(H) 6.3 - 7.9 g/dL 08/20/2022 3:07 PM EST [facility] ALT, Plasma 17 8 - 33 U/L 08/20/2022 3:07 PM EST [facility] AST, Plasma 18 11 - 32 U/L 08/20/2022 3:07 PM EST [facility] Blood Venous blood specimen / Unknown Venipuncture / Unknown 08/20/2022 1:23 PM EST 08/20/2022 1:25 PM EST Sergey BALDERRAMA LAB BLOOD ORDERABLES Final Resul t Performing Organization Address City/State/[facility] Co de Phone Number [facility] [address] [place] [address] * Creatinine, Plasma (08/20/2022 1:23 PM EST) Creatinine, Plasma 0.78 0.60 - 1.10 mg/dL 08/20/2022 3:07 PM EST [facility] eGFRcr 94.4 mL/min/1.7 3m*2 08/20/2022 3:07 PM EST [facility] Comment: Reported eGFRcr in mL/min/1.73m2 is based the CKD-EPI 2021 equation that does not use a race coefficient. Effective 02/14/22 our laboratory changed the eGFR calculation to the CKD-EPI 2021 equation from the previously reported eGFR, based on the MDRD equation. ??For comparisons between the two equations, please see laboratory website: ??[email or web address] Blood Venous blood specimen / Unknown Venipuncture / Unknown 08/20/2022 1:23 PM EST 08/20/2022 1:25 PM EST Sergey BALDERRAMA LAB BLOOD ORDERABLES Final Resul t Performing Organization Address City/State/[facility] Co de Phone Number [facility] [address] [place], [place] [id number] * (ABNORMAL) CBC and Differential (08/20/2022 1:23 PM EST) WBC Count 20.17(H) 3.70 - 10.30 10*3/uL LAB HEMATOLOGY METHOD 08/20/2022 2:57 PM EST [facility] RBC Count 5.04 3.90 - 5.20 10*6/uL LAB HEMATOLOGY METHOD 08/20/2022 2:57 PM EST [facility] HGB 16.0(H) 11.2 - 15.7 g/dL LAB HEMATOLOGY METHOD 08/20/2022 2:57 PM EST [facility] HCT 46.9(H) 34.0 - 45.0 % LAB HEMATOLOGY METHOD 08/20/2022 2:57 PM EST [facility] Platelet Count 328 155 - 369 10*3/uL LAB HEMATOLOGY METHOD 08/20/2022 2:57 PM EST [facility] MCV 93 79 - 98 fL LAB HEMATOLOGY METHOD 08/20/2022 2:57 PM EST [facility] MCH 31.7 26.0 - 32.0 pg LAB HEMATOLOGY METHOD 08/20/2022 2:57 PM EST [facility] MCHC 34.1 30.7 - 35.5 g/dL LAB HEMATOLOGY METHOD 08/20/2022 2:57 PM EST [facility] RDW 13.4 11.5 - 14.5 % LAB HEMATOLOGY METHOD 08/20/2022 2:57 PM EST [facility] MPV 10.7 8.8 - 12.5 fL LAB HEMATOLOGY METHOD 08/20/2022 2:57 PM EST [facility] nRBC 0.0 <=0.0 per 100 WBCs LAB HEMATOLOGY METHOD 08/20/2022 2:57 PM EST [facility] Differential Type Automated LAB HEMATOLOGY METHOD 08/20/2022 2:57 PM EST [facility] Neutrophils % 81.0 % LAB HEMATOLOGY METHOD 08/20/2022 2:57 PM EST [facility] Lymphocytes % 14.0 % LAB HEMATOLOGY METHOD 08/20/2022 2:57 PM EST [facility] Monocytes % 4.0 % LAB HEMATOLOGY METHOD 08/20/2022 2:57 PM EST [facility] Eosinophils % 1.0 % LAB HEMATOLOGY METHOD 08/20/2022 2:57 PM EST [facility] Basophils % 0.0 % LAB HEMATOLOGY METHOD 08/20/2022 2:57 PM EST [facility] Immature Granulocytes % 0.0 % LAB HEMATOLOGY METHOD 08/20/2022 2:57 PM EST [facility] Neutrophils Absolute 16.06(H) 1.60 - 6.10 10*3/uL LAB HEMATOLOGY METHOD 08/20/2022 2:57 PM EST [facility] Lymphocytes Absolute 2.89 1.20 - 3.90 10*3/uL LAB HEMATOLOGY METHOD 08/20/2022 2:57 PM EST [facility] Monocytes Absolute 0.84 0.30 - 0.90 10*3/uL LAB HEMATOLOGY METHOD 08/20/2022 2:57 PM EST [facility] Eosinophils Absolute 0.24 0.00 - 0.50 10*3/uL LAB HEMATOLOGY METHOD 08/20/2022 2:57 PM EST [facility] Basophils Absolute 0.05 0.00 - 0.10 10*3/uL LAB HEMATOLOGY METHOD 08/20/2022 2:57 PM EST [facility] Immature Granulocytes Absolute 0.09(H) 0.00 - 0.06 10*3/uL LAB HEMATOLOGY METHOD 08/20/2022 2:57 PM EST [facility] Blood Venous blood specimen / Unknown Venipuncture / Unknown 08/20/2022 1:23 PM EST 08/20/2022 1:25 PM EST Narrative [facility] - 08/20/2022 2:57 PM EST Therapeutic decision making should be based on absolute values, rather than percentages. Sergey BALDERRAMA LAB BLOOD ORDERABLES Final Resul t [facility] [address] [place] [address] * Dionicio (MILLA) Antibody, IgG (08/20/2022 1:23 PM EST) Greenberg (MILLA) Antibody, IgG 0 0 - 40 AU/mL 08/23/2022 11:51 PM EST [facility] ([place]) Serum specimen (specimen) 08/20/2022 1:23 PM EST 08/20/2022 1:25 PM EST Narrative [facility] ([place]) - 08/23/2022 11:51 PM EST INTERPRETIVE INFORMATION: Greenberg (MILLA) Antibody, IgG ??29 AU/mL or Less ............. Negative ??30 - 40 AU/mL ................ Equivocal ??41 AU/mL or Greater .......... Positive Greenberg antibody is highly specific (greater than 90 percent) for systemic lupus erythematosus (SLE) but only occurs in 30-35 percent of SLE cases. The presence of antibodies to Greenberg has variable associations with SLE clinical manifestations. Performed By: [facility] [address] [place] [address] Heavy Antiarmor Weapons Infantryman: Harvinder Arita MD, PhD Sergey [facility] LAB REF LAB BLOOD AND FLUID ORD Final Result Performing Organization Address City/[facility]/ZIP Co de Phone Number [facility] ([place]) [address] [place] [address] * C4 Complement (08/20/2022 1:23 PM EST) C4 Complement 18 13 - 36 mg/dL 08/20/2022 3:20 PM EST [facility] Blood Venous blood specimen / Unknown Venipuncture / Unknown 08/20/2022 1:23 PM EST 08/20/2022 1:25 PM EST Sergey BALDERRAMA LAB BLOOD ORDERABLES Final Resul t [facility] [address] [place] [address] * C3 Complement (08/20/2022 1:23 PM EST) C3 Complement 116 84 - 166 mg/dL 08/20/2022 3:20 PM EST [facility] Blood Venous blood specimen / Unknown Venipuncture / Unknown 08/20/2022 1:23 PM EST 08/20/2022 1:25 PM EST Sergey Grigsby [employer] LAB BLOOD ORDERABLES Final Resul t [facility] [address] [place] [address] * Double-Stranded DNA (dsDNA) Antibody, IgG by IFA (08/20/2022 1:23 PM EST) ANTI DNA SCREEN <1:10 <1:10 08/24/2022 12:15 PM EST [facility] ([place]) Blood Venous blood specimen / Unknown Venipuncture / Unknown 08/20/2022 1:23 PM EST 08/20/2022 1:25 PM EST Narrative [facility] ([place]) - 08/24/2022 12:15 PM EST INTERPRETIVE INFORMATION: Double-Stranded DNA (dsDNA) Antibody, IgG by IFA (using Crithidia luciliae) Positivity for anti-double stranded DNA (anti-dsDNA) IgG antibody is a diagnostic criterion of systemic lupus erythematosus (SLE). The presence of the anti-dsDNA IgG antibody is identified by IFA titer (Crithidia luciliae indirect fluorescent test [YULISA]). YULISA is highly specific for SLE with a sensitivity of 50-60 percent. Some patients with early or inactive SLE may be positive for anti-dsDNA IgG by TALI but negative by YULISA. If the YULISA result is negative but the patient has a positive TALI and clinical suspicion remains, consider antinuclear antibody (BOSSMAN) testing by IFA. Additional information and recommendations for testing may be found at http://[email or web address]/Topics/AutoimmuneDz/[email or web address]/i ndex.html. Performed By: [facility] [address] [place] [id number] Heavy Antiarmor Weapons Infantryman: Harvinder Arita MD, PhD Sergey [employer] LAB BLOOD ORDERABLES Final Resul t [facility] ([place]) [address] [place] [address] * Antinuclear Antibody (BOSSMAN), HEp-2, IgG (08/20/2022 1:23 PM EST) BOSSMAN INTERPRETIVE COMMENT See Note 08/24/2022 8:15 PM EST [facility] ([place]) Anti Nuc Ab Screen <1:80 <1:80 08/24/2022 8:15 PM EST [facility] ([place]) Blood Venous blood specimen / Unknown Venipuncture / Unknown 08/20/2022 1:23 PM EST 08/20/2022 1:25 PM EST Narrative [facility] ([place]) - 08/24/2022 8:15 PM EST Antinuclear antibodies by IFA negative for homogeneous, speckled, nucleolar, centromere, and nuclear dots patterns. Cytoplasmic antibodies by IFA negative for reticular/AMA, discrete/GW body-like, polar/golgi-like, rods and rings, and cytoplasmic speckled patterns. INTERPRETIVE INFORMATION: BOSSMAN Interpretive Comment Presence of antinuclear antibodies (BOSSMAN) is a hallmark feature of systemic autoimmune rheumatic diseases (SARD). However, BOSSMAN lacks diagnostic specificity and is associated with a variety of diseases (cancers, autoimmune, infectious, and inflammatory conditions) ??and may also occur in healthy individuals in varying prevalence. The lack of diagnostic specificity requires confirmation of positive BOSSMAN by more specific serologic tests. BOSSMAN (nuclear reactivity) positive patterns reported include centromere, homogeneous, nuclear dots, nucleolar, or speckled. BOSSMAN (cytoplasmic reactivity) positive patterns reported include reticular/AMA, discrete/GW body-like, polar/golgi-like, cytoplasmic speckled or rods and rings. All positive patterns are reported to endpoint titers (1:2560). Reported patterns may help guide differential diagnosis, although they may not be specific for individual antibodies or diseases. Mitotic staining patterns not reported. ??Negative results do not necessarily rule out SARD. Performed By: [facility] [address] [place] [address] Heavy Antiarmor Weapons Infantryman: Harvinder Arita MD, PhD [facility] LAB BLOOD ORDERABLES Final Resul t [facility] [employer] ([employer]) [address] [place] [address] * Acute Hepatitis Panel (08/20/2022 1:23 PM EST) Hepatitis B Surf Antigen Negative Negative 08/20/2022 5:03 PM EST [facility] Hepatitis C Antibody Negative Negative 08/20/2022 5:03 PM EST [facility] Hepatitis A Antibody IgM Negative Negative 08/20/2022 5:03 PM EST [facility] Hepatitis B Core Antibody IgM Negative Negative 08/20/2022 5:03 PM EST [facility] Blood Venous blood specimen / Unknown Venipuncture / Unknown 08/20/2022 1:23 PM EST 08/20/2022 1:25 PM EST [employer] [facility] [employer] LAB BLOOD ORDERABLES Final Resul t Performing Organization Address City/[facility] de Phone Number [facility] [address] [place] [address] * Rheumatoid Factor, Plasma (08/20/2022 1:23 PM EST) Rheumatoid Factor, Plasma 10 <14 IU/mL 08/20/2022 3:07 PM EST [facility] Blood Venous blood specimen / Unknown Venipuncture / Unknown 08/20/2022 1:23 PM EST 08/20/2022 1:25 PM EST Sergey [employer] LAB BLOOD ORDERABLES Final Resul t Performing Organization Address City/[facility] de Phone Number [facility] [address] [place] [address] * Cyclic Citrul Peptide Antibody IgG (08/20/2022 1:23 PM EST) Cyclic Citrul Peptide Antibody IgG <5.0 <=5.0 U/mL 08/20/2022 5:40 PM EST [facility] Blood Venous blood specimen / Unknown Venipuncture / Unknown 08/20/2022 1:23 PM EST 08/20/2022 1:25 PM EST [facility] BLOOD ORDERABLES Final Resul t [facility] [address] [place] [address] * Sedimentation Rate, Automated (08/20/2022 1:23 PM EST) Sedimentation Rate 10 <20 mm/hr 2022 3:18 PM EST [facility] Blood Venous blood specimen / Unknown Venipuncture / Unknown 08/20/2022 1:23 PM EST 08/20/2022 1:25 PM EST [facility] BLOOD ORDERABLES Final Resul t Performing Organization Address [facility] de Phone Number [facility] [address] [place] [address] * C-Reactive Protein, Plasma (08/20/2022 1:23 PM EST) CRP, Plasma <3.0 <=8.0 mg/L 08/20/2022 3:07 PM EST [facility] Blood Venous blood specimen / Unknown Venipuncture / Unknown 08/20/2022 1:23 PM EST 08/20/2022 1:25 PM EST Narrative [facility] - 08/20/2022 3:07 PM EST This CRP test is appropriate for assessment of infection, systemic inflammation and/or tissue injury. To assess cardiovascular disease risk order high sensitivity CRP (CRPH). [facility] BLOOD ORDERABLES Final Resul t Performing Organization Address [facility] de Phone Number [facility] [address] [place] [address] documented in this encounter Visit Diagnoses Diagnosis Positive anti-CCP test- Primary Inflammation of eye Elevated erythrocyte sedimentation rate Elevated sedimentation rate Rash and other nonspecific skin eruption Pain in both hands Positive anti-CCP test Pain in both hands documented in this encounter Additional Health Concerns Assessment Noted Time A fall risk assessment has been complete d for the patient 08/20/2022 12:23 PM EST A Body Mass Index follow-up plan has been documented for the patient 08/20/2022 1:25 PM EST documented as of this encounter Care Teams Pipe Insulator Relationship Specialty Start Date End Date Salazar Orozco APRN [address] [facility] [place] [phone] PCP - General 08/09/22 10/29/23 documented as of this encounter
--- OUTSIDE RECORDS SUMMARY | 2024-06-25 10:08 | XMS_ITS | Encounter Summary ---
Author Organization Healthcare Address [address] [place] [address] Care Team Providers Care Corn Popper Name Role Phone Adonis Grimes MD Primary Care Provider [phone] Reason for Referral * Consultation (Routine) - Authorized Specialty Diagnoses / Procedures Referred By Tata osborne Referred To Contact Gastroenterology Diagnoses Abdominal pain, epigastric Asia Diaz PA [address] [place] [address] Phone: tel: fax: Referral ID Status Reason Start Date Expiration Date Visits Requested Visits Authorized [id number] Authorized Specialty Services Required 10/30/2023 04/30/2025 1 1 Scheduling Instructions Possible IBS / IBD Reason for Visit * Reason Comments Abdominal Pain Encounter Details Date Type Department Care Team (Late st Contact Info) Description 10/30/2023 5:30 PM EDT - 10/30/2023 9:15 PM EDT Emergency [facility] [address] [place] [address] Esperanza Rodriguez MD [address] [place] [address] Abdominal pain, epigastric (Primary Dx) Discharge Disposition: Home or Self Care Social [...] Sign Reading Time Taken Comments Blood Pressure 115/63 10/30/2023 7:01 PM EDT Pulse 73 10/30/2023 7:01 PM EDT Temperature 36.5 ??C (97.7 ??F) 10/30/2023 5:28 PM ED T Respiratory Rate 16 10/30/2023 7:01 PM EDT Oxygen Saturation 99% 10/30/2023 7:01 PM EDT Inhaled Oxygen Concentration - - Weight 74.8 kg (165 lb) 10/30/2023 5:41 PM EDT Height 170.2 cm (5' 7 ) 10/30/2023 5:41 PM EDT Body Mass Index 25.84 10/30/2023 5:41 PM EDT documented in this encounter Discharge Instructions * Discharge Instructions* Asia Diaz PA - 10/30/2023 8:51 PM EDT Please adhere to a bland diet for the next several days. Follow-up with your primary care provider within one week. Return with new or worsening symptoms. * Attachments The following attachments cannot be sent through Care Everywhere. * Diet: Soft, Discharge Instructions (Mongolian) documented in this encounter Medications at Time of Discharge acetaminophen (Tylenol) 325 MG tablet Take 650 mg by mouth if needed. co-enzyme Q-10 30 MG capsule Take 30 mg by mouth 1 (one) time each day. diphenhydrAMINE-acet aminophen (Tylenol PM) 25-500 MG per tablet Take 1 tablet by mouth every night. methylPREDNISolone (Medrol Dospak) 4 MG tablets TAKE BY MOUTH DIRECTED ON INSIDE OF PACKAGE 07/23/2022 prednisoLONE acetate (Pred-Forte) 1 % ophthalmic suspension 08/13/2022 simvastatin (Zocor) 10 MG tablet Take 10 mg by mouth 1 (one) time each day. 08/09/2022 tacrolimus (Protopic) 0.03 % ointment 08/13/2022 ondansetron ODT (Zofran-ODT) 4 MG disintegrating tablet Take 1 tablet (4 mg) by mouth every 6 (six) hours if needed for nausea. 12 tablet 10/30/2023 documented as of this encounter Miscellaneous Notes * ED Provider Notes - Asia Diaz PA - 10/30/2023 5:13 PM EDT - HPI Chief Complaint Patient presents with Abdominal Pain Adrianna Cooper is a 48 y.o. female who presents to the ED for evaluation of epigastric abdominal pain x3 hours. Pt states pain radiates to her back. Also endorses with nausea, denies nausea. Denies bowel habit changes. Denies chest pain, SOB, fever, chills, urinary symptoms. Denies history of similar abdominal pain. Has had hysterectomy. No data recorded Patient History Past Medical History: Diagnosis Date Low back pain 2011 Past Surgical History: Procedure Laterality Date LUMBAR DISCECTOMY 09/2012 TOTAL ABDOMINAL HYSTERECTOMY Family History Problem Relation Name Age of Onset Hepatitis, C Virus Mother Margareth Gutierrez Autoimmune disease Sister Gali Porter Tobacco Use Smoking status: Every Day Packs/day: 1.00 Years: 15.00 Additional pack years: 0.00 Total pack years: 15.00 Types: Cigarettes Smokeless tobacco: Never Immunization History Immunization History: not reviewed Allergies: Allergies Allergen Reactions Codeine Anaphylaxis Morphine Anaphylaxis Sulfa Drugs Anaphylaxis Aspirin Runny nose Penicillins Unknown - Patient states they do not know rxn details Review of Systems Review of Systems Constitutional: Negative for chills and fever. Respiratory: Negative for cough and shortness of breath. Cardiovascular: Negative for chest pain and palpitations. Gastrointestinal: Positive for abdominal pain and nausea. Negative for blood in stool, constipation, diarrhea and vomiting. Genitourinary: Negative for dysuria and hematuria. Musculoskeletal: Positive for back pain. Neurological: Negative for syncope and headaches. All other systems reviewed and are negative. Physical Exam ED Triage Vitals [10/30/23 1728] Temp Heart Rate Resp BP 36.5 ??C (97.7 ??F) 85 16 (!) 143/94 SpO2 Temp Source Heart Rate Source Patient Position 100 % Oral -- -- BP Location FiO2 (%) -- -- Physical Exam Vitals and nursing note reviewed. Constitutional: General: She is not in acute distress. Appearance: She is well-developed. HENT: Head: Normocephalic and atraumatic. Eyes: Conjunctiva/sclera: Conjunctivae normal. Cardiovascular: Rate and Rhythm: Normal rate and regular rhythm. Heart sounds: No murmur heard. Pulmonary: Effort: Pulmonary effort is normal. No respiratory distress. Breath sounds: Normal breath sounds. Abdominal: General: Bowel sounds are normal. Palpations: Abdomen is soft. Tenderness: There is abdominal tenderness in the epigastric area. There is no right CVA tenderness,left CVA tenderness or guarding. Negative signs include Abdullahi's sign. Musculoskeletal: General: No swelling. Cervical back: Neck supple. Skin: General: Skin is warm and dry. Capillary Refill: Capillary refill takes less than 2 seconds. Neurological: Mental Status: She is alert. Psychiatric: Mood and Affect: Mood normal. ED Course & MDM ED Course as of 11/02/231848Oct 30, 20231899 CMP(!) Kidney and liver function intact. Mild hyponatremia and hypokalemia. [SN] 1900 WBC(!): 17.02 [SN] 1900 Hemoglobin(!): 16.1 [SN] 1900 Magnesium: 2.0 [SN] 1900 Lipase: 25 [SN] 1900 Lactate: 0.9 [SN] 2044 CT Abdomen Pelvis w IV Contrast IMPRESSION: Findings of inflammation in the distal small bowel. Differential considerations include infectious enteritis well as inflammatory bowel disease. No imaging evidence of pancreatitis. [SN] 2050 Per attending, no previous episodes therefore GI referral / outpatient management not indicated. [SN] ED Course User Index [SN] Asia Diaz PA Clinical Impressions as of 11/02/231848 Abdominal pain, epigastric - Medical Decision Making Patient was evaluated by Asia Diaz PA-C in coordination with Dr. Rodriguez. In summary, Adrianna Cooper is a 48 y.o. female who presents to the ED for evaluation of epigastric abdominal pain radiating to back, nausea without vomiting. Afebrile, hemodynamically stable, in no acute distress, and nontoxic appearing. On physical exam, abdomen is soft, mild abdominal tenderness in the epigastric region without guarding or rebound tenderness, bowel sounds present and normoactive in all 4 quadrants. DDx includes pancreatitis, gastritis, acid reflux, appendicitis, bowel obstruction among other things. All were considered. 1 L lactated Ringer's, Zofran, Dilaudid administered. Laboratory evaluation pertinent for moderate leukocytosis 17.02, mild hyponatremia 135, remainder of laboratory evaluation including CBC, CMP, lipase, magnesium, lactic acid unremarkable. See ED course for further laboratory breakdown. CT A/P shows findings of inflammation in the distal small bowel indicative of either an infectious enteritis / inflammatory bowel disease per radiology interpretation. On re-evaluation, patient endorses complete resolution of symptoms. Although patient has never experienced any similar episodes of pain, nor has she has symptoms of IBD, patient does desire GI referral. Zofran prescribed for nausea. Patient was stable and appropriate discharge. Instructed to follow up with GI if symptoms persist, referral provided. Strict return precautions given. DISPOSITION: Discharge ED Prescriptions Medication Sig Dispense Start Date End Date Auth. Provider ondansetron ODT (Zofran-ODT) 4 MG disintegrating tablet Take 1 tablet (4 mg) by mouth every 6 (six)hours if needed for nausea. 12 tablet 10/30/2023 11/29/2023 Asia Diaz PA Discharge Instructions Please adhere to a bland diet for the next several days. Follow-up with your primary care provider within one week. Return with new or worsening symptoms. Discharge References/Attachments Diet: Soft, Discharge Instructions (Mongolian) Disposition Discharge AVS (Printed 10/30/2023) Discharge Orders Discharge Ambulatory referral to Gastroenterology Authorized Sign Off Checklist Clinical Impression: Complete ED Disposition: Complete - Asia Diaz PA 11/02/231902 Cosigned by Esperanza Rodriguez MD at 11/03/2023 7:43 AM EDT Associated attestation - Esperanza Rodriguez MD - 11/03/2023 7:43 AM EDT I attest to being involved in providing substantive part of the medical decision making in patient care. 48 yo female w,th epigastric pain radiating to back, nausea. CT shows distal small bowel changes c/w enteritis vs IBD. No h/o IBD per patient and symptoms acute, favor enteritis. Recommended bland diet, fluids, symptomatic care and return if worse. * ED Triage Notes - Nando Acevedo, RN - 10/30/2023 5:13 PM EDT Pt with c/o epigastric pain that radiates to her back. Pt states pain is intermittent, also endorses nausea. Pt states pain began about 3 hours ago and has gotten progressively worse. documented in this encounter Plan of Treatment Scheduled Referrals Name Type Priority Associated Diagnoses Order Schedule Discharge Ambulatory referral to Gastroenterology Outpatient Referral Routine Abdominal pain, epigastric 1 Occurrences starting 10/30/2023 until 04/30/2025 documented as of this encounter Procedures Procedure Name Priority Date/Time Associated Diagnosis Comments CT ABDOMEN PELVIS W IV CONTRAST STAT 10/30/2023 7:34 PM EDT ED HIV 1/2 ANTIBODY/ANTIGEN SCREEN WITH REFLEX TO HIV I/II DIFFERENTIATION STAT 10/30/2023 6:23 PM EDT ED PROTOCOL HIV 1/2 ANTIBODY/ANTIGEN SCREEN W/REFLEX TO HIV 1/2 ANTIBODY DIFFERENTIATION STAT 10/30/2023 6:23 PM EDT LACTATE, VENOUS STAT 10/30/2023 6:23 PM EDT HEPATITIS C ANTIBODY - ED W/REFLEX TO HCV QUANT PCR STAT 10/30/2023 6:23 PM EDT CBC WITH AUTO DIFFERENTIAL STAT 10/30/2023 6:23 PM EDT MAGNESIUM, PLASMA STAT 10/30/2023 6:2 3 PM EDT LIPASE, PLASMA STAT 10/30/2023 6:23 PM EDT COMPREHENSIVE METABOLIC PANEL, PLASMA STAT 10/30/2023 6:23 PM EDT ECG ADULT STAT 10/30/2023 5:34 PM EDT documented in this encounter Results * CT Abdomen Pelvis w IV Contrast (10/30/2023 7:34 PM EDT) Anatomical Region Laterality Modality Abdomen, Pelvis Computed Tomogra phy Impressions 10/30/2023 8:38 PM EDT Findings of inflammation in the distal small bowel. Differential considerations include infectious enteritis well as inflammatory bowel disease. No imaging evidence of pancreatitis. CRITICAL RESULT: ?? No. COMMUNICATION: Per this written report. Preliminary report signed by Walter Mccartney M.D. on 10/30/2023 8:29 PM By electronically signing this report, I, the attending physician, attest that I have personally reviewed the images/data for the above examination(s) and agree with the final edited report. Drafted by Walter Mccartney M.D. on 10/30/2023 8:15 PM Final report signed by Jesse Tariq MD on 10/30/2023 8:38 PM Narrative 10/30/2023 8:38 PM EDT CLINICAL INDICATION: Pancreatitis, acute, severe TECHNIQUE: Imaging of the abdomen and pelvis was performed, from lung bases through pubic symphysis, using spiral technique, following administration of IV contrast, Omnipaque 300, 100 mL. Delayed (excretory phase) images were performed through the kidneys. Reformatted images in the coronal and sagittal planes were generated from the axial data set to facilitate diagnostic accuracy. Total DLP (Dose-Length Product): 558 mGy*cm. Please note: The reported value represents the total of one or more individual components during the CT acquisition on this date and at this time, and as such, the same value may appear in more than one CT report depending on the interpreting/reporting physicians. COMPARISON: None. FINDINGS: Lung Bases: The lung bases are clear. Liver/Gallbladder/Biliary system: No acute or suspicious parenchymal findings. Small amount of fatty infiltration along the major fissure. Unremarkable gallbladder. No intra- or extra-hepatic biliary ductal dilatation. Spleen: No acute findings. Pancreas: The pancreas enhances homogeneously. No appreciable peripancreatic inflammation. Adrenals: The adrenals are morphologically unremarkable. Kidneys: The kidneys demonstrate symmetric nephrogram and excretion. No renal or ureteral calculi. No hydronephrosis. Bowel/Mesentery: Submucosal edema and mucosal enhancement involving multiple loops of ileum in the lower abdomen and pelvis. Associated mild mesenteric fat haziness consistent with edema/inflammation. The jejunum and duodenum appear unremarkable. No pericolonic inflammation. The appendix is visualized and is not inflamed. Vessels/Lymph Nodes: Scattered calcific abdominal aortic atherosclerotic disease, visceral and pelvic arteries patent. Portal vein, SMV, splenic vein patent. No lymphadenopathy within the abdomen or pelvis. Fluid Survey: Small amount nonorganized fluid in the dependent pelvis, trace fluid within the mesenteric leaves associated with inflammatory changes the ilium above. Pelvis: Uterus absent. Urinary bladder without acute finding. Body Wall: No acute body wall findings. Bones: No aggressive osseous lesions or acute findings. Procedure Note Jesse Tariq MD - 10/30/2023 CLINICAL INDICATION: Pancreatitis, acute, severe TECHNIQUE: Imaging of the abdomen and pelvis was performed, from lung bases throughpubic symphysis, using spiral technique, following administration of IVcontrast, Omnipaque 300, 100 mL. Delayed (excretory phase) images wereperformed through the kidneys. Reformatted images in the coronal andsagittal planes were generated from the axial data set to facilitatediagnostic accuracy. Total DLP (Dose-Length Product): 558 mGy*cm. Please note: The reportedvalue represents the total of one or more individual components during theCT acquisition on this date and at this time, and as such, the same valuemay appear in more than one CT report depending on theinterpreting/reporting physicians. COMPARISON: None. FINDINGS: Lung Bases: The lung bases are clear. Liver/Gallbladder/Biliary system: No acute or suspicious parenchymalfindings. Small amount of fatty infiltration along the major fissure.Unremarkable gallbladder. No intra- or extra-hepatic biliary ductaldilatation. Spleen: No acute findings. Pancreas: The pancreas enhances homogeneously. No appreciableperipancreatic inflammation. Adrenals: The adrenals are morphologically unremarkable. Kidneys: The kidneys demonstrate symmetric nephrogram and excretion. Norenal or ureteral calculi. No hydronephrosis. Bowel/Mesentery: Submucosal edema and mucosal enhancement involvingmultiple loops of ileum in the lower abdomen and pelvis. Associated mildmesenteric fat haziness consistent with edema/inflammation. The jejunumand duodenum appear unremarkable. No pericolonic inflammation. Theappendix is visualized and is not inflamed. Vessels/Lymph Nodes: Scattered calcific abdominal aortic atheroscleroticdisease, visceral and pelvic arteries patent. Portal vein, SMV, splenicvein patent. No lymphadenopathy within the abdomen or pelvis. Fluid Survey: Small amount nonorganized fluid in the dependent pelvis,trace fluid within the mesenteric leaves associated with inflammatorychanges the ilium above. Pelvis: Uterus absent. Urinary bladder without acute finding. Body Wall: No acute body wall findings. Bones: No aggressive osseous lesions or acute findings. IMPRESSION: Findings of inflammation in the distal small bowel. Differentialconsiderations include infectious enteritis well as inflammatory boweldisease. No imaging evidence of pancreatitis. CRITICAL RESULT: No. COMMUNICATION: Per this written report. Preliminary report signed by Walter Mccartney M.D. on 10/30/2023 8:29 PM By electronically signing this report, I, the attending physician, attestthat I have personally reviewed the images/data for the aboveexamination(s) and agree with the final edited report. Drafted by Walter Mccartney M.D. on 10/30/2023 8:15 PM Final report signed by Jesse Tariq MD on 10/30/2023 8:[address] PROCEDURES Final Result * ED HIV 1/2 Antibody/Antigen Screen w/Reflex to HIV 1/2 Differentiation (10/30/2023 6:23 PM EDT) HIV 1 & 2 Antibody/Antigen Screen Non Reactive Non Reactive 10/30/2023 7:04 PM EDT [facility] Comment:Screening for HIV 1 & 2 antibodies, and P24 antigen is NONREACTIVE. No confirmatory testing is required. Blood Venous blood specimen / Unknown Venipuncture / Unknown 10/30/2023 6:23 PM EDT 10/30/2023 6:30 PM EDT us Summar Joe PA LAB BLOOD ORDERABLES Final Resu lt Performing Organization Address City/[facility]/ZIP Co de Phone Number [facility]ALTHCARE [facility] [address] [place] [address] * Hepatitis C Antibody - ED (10/30/2023 6:23 PM EDT) Pathologist [facility] Hepatitis C Antibody Negative Negative 10/30/2023 7:01 PM EDT [facility] Blood Venous blood specimen / Unknown Venipuncture / Unknown 10/30/2023 6:23 PM EDT 10/30/2023 6:30 PM EDT us Summar Joe PA LAB BLOOD ORDERABLES Final Resu lt Performing Organization Address City/[facility] Co de Phone Number [facility]ARE [facility] [address] [place] [address] * (ABNORMAL) CBC w/diff (10/30/2023 6:23 PM EDT) Pathologist [facility] WBC Count 17.02(H) 3.70 - 10.30 10*3/uL LAB HEMATOLOGY METHOD 10/30/2023 6:31 PM EDT [facility] RBC Count 5.09 3.90 - 5.20 10*6/uL LAB HEMATOLOGY METHOD 10/30/2023 6:31 PM EDT [facility] HGB 16.1(H) 11.2 - 15.7 g/dL LAB HEMATOLOGY METHOD 10/30/2023 6:31 PM EDT [facility] HCT 44.0 34.0 - 45.0 % LAB HEMATOLOGY METHOD 10/30/2023 6:31 PM EDT [facility] Platelet Count 303 155 - 369 10*3/uL LAB HEMATOLOGY METHOD 10/30/2023 6:31 PM EDT [facility] MCV 86 79 - 98 fL LAB HEMATOLOGY METHOD 10/30/2023 6:31 PM EDT [facility] MCH 31.6 26.0 - 32.0 pg LAB HEMATOLOGY METHOD 10/30/2023 6:31 PM EDT [facility] MCHC 36.6(H) 30.7 - 35.5 g/dL LAB HEMATOLOGY METHOD 10/30/2023 6:31 PM EDT [facility] RDW 12.3 11.5 - 14.5 % LAB HEMATOLOGY METHOD 10/30/2023 6:31 PM EDT [facility] MPV 9.9 8.8 - 12.5 fL LAB HEMATOLOGY METHOD 10/30/2023 6:31 PM EDT [facility] nRBC 0.0 <=0.0 per 100 WBCs LAB HEMATOLOGY METHOD 10/30/2023 6:31 PM EDT [facility] Differential Type Automated LAB HEMATOLOGY METHOD 10/30/2023 6:31 PM EDT [facility] Neutrophils % 83.0 % LAB HEMATOLOGY METHOD 10/30/2023 6:31 PM EDT [facility] Lymphocytes % 11.0 % LAB HEMATOLOGY METHOD 10/30/2023 6:31 PM EDT [facility] Monocytes % 5.0 % LAB HEMATOLOGY METHOD 10/30/2023 6:31 PM EDT [facility] Eosinophils % 1.0 % LAB HEMATOLOGY METHOD 10/30/2023 6:31 PM EDT [facility] Basophils % 0.0 % LAB HEMATOLOGY METHOD 10/30/2023 6:31 PM EDT [facility] Immature Granulocytes % 0.0 % LAB HEMATOLOGY METHOD 10/30/2023 6:31 PM EDT [facility] Neutrophils Absolute 14.16(H) 1.60 - 6.10 10*3/uL LAB HEMATOLOGY METHOD 10/30/2023 6:31 PM EDT [facility] Lymphocytes Absolute 1.83 1.20 - 3.90 10*3/uL LAB HEMATOLOGY METHOD 10/30/2023 6:31 PM EDT [facility] Monocytes Absolute 0.81 0.30 - 0.90 10*3/uL LAB HEMATOLOGY METHOD 10/30/2023 6:31 PM EDT [facility] Eosinophils Absolute 0.10 0.00 - 0.50 10*3/uL LAB HEMATOLOGY METHOD 10/30/2023 6:31 PM EDT [facility] Basophils Absolute 0.05 0.00 - 0.10 10*3/uL LAB HEMATOLOGY METHOD 10/30/2023 6:31 PM EDT [facility] Immature Granulocytes Absolute 0.07(H) 0.00 - 0.06 10*3/uL LAB HEMATOLOGY METHOD 10/30/2023 6:31 PM EDT [facility] Blood Venous blood specimen / Unknown Venipuncture / Unknown 10/30/2023 6:23 PM EDT 10/30/2023 6:29 PM EDT Narrative [facility] - 10/30/2023 6:31 PM EDT Therapeutic decision making should be based on absolute values, rather than percentages. us Summar Joe PA LAB BLOOD ORDERABLES Final Resu lt Performing Organization Address [facility] Co de Phone Number [facility]ALTH[facility]ARE [facility] [address] [place] [address] * Lactic acid, venous (10/30/2023 6:23 PM EDT) Lactate, Venous, Whole Blood 0.9 0.5 - 2.2 mmol/L LAB HEMATOLOGY METHOD 10/30/2023 6:31 PM EDT [facility] Blood Venous blood specimen / Unknown Venipuncture / Unknown 10/30/2023 6:23 PM EDT 10/30/2023 6:29 PM EDT us Summar Joe PA LAB BLOOD ORDERABLES Final Resu lt Performing Organization Address [facility] Co de Phone Number [facility]ALTH[facility]ARE [facility] [address] [place] [phone] * Lipase (10/30/2023 6:23 PM EDT) Lipase, Plasma 25 19 - 63 U/L 10/30/2023 6:55 PM EDT [facility] Blood Venous blood specimen / Unknown Venipuncture / Unknown 10/30/2023 6:23 PM EDT 10/30/2023 6:30 PM EDT us Summar Joe PA LAB BLOOD ORDERABLES Final Resu lt Performing Organization Address City/[facility] Co de Phone Number [facility] [address] [place] [address] * Magnesium (10/30/2023 6:23 PM EDT) Magnesium, Plasma 2.0 1.9 - 2.4 mg/dL 10/30/2023 6:55 PM EDT [facility] Blood Venous blood specimen / Unknown Venipuncture / Unknown 10/30/2023 6:23 PM EDT 10/30/2023 6:30 PM EDT us Summar Joe BALDERRAMA LAB BLOOD ORDERABLES Final Resu lt [facility] [address] [place] [address] * (ABNORMAL) CMP (10/30/2023 6:23 PM EDT) Pathologist [facility] Glucose, Plasma 99 74 - 99 mg/dL 10/30/2023 6:55 PM EDT [facility] BUN, Plasma 13 7 - 21 mg/dL 10/30/2023 6:55 PM EDT [facility] Creatinine, Plasma 0.85 0.60 - 1.10 mg/dL 10/30/2023 6:55 PM EDT [facility] BUN/Creatinine Ratio 15 10/30/2023 6:55 PM EDT [facility] Sodium, Plasma 135(L) 136 - 145 mmol/L 10/30/2023 6:55 PM EDT [facility] Potassium, Plasma 3.6(L) 3.7 - 4.8 mmol/L 10/30/2023 6:55 PM EDT [facility] Chloride, Plasma 103 97 - 107 mmol/L 10/30/2023 6:55 PM EDT [facility] CO2, Plasma 23 22 - 29 mmol/L 10/30/2023 6:55 PM EDT [facility] Anion Gap 9 6 - 16 mmol/L 10/30/2023 6:55 PM EDT [facility] Total Calcium, Plasma 10.3(H) 8.9 - 10.2 mg/dL 10/30/2023 6:55 PM EDT [facility] Total Protein 7.6 6.3 - 7.9 g/dL 10/30/2023 6:55 PM EDT [facility] Albumin, Plasma 4.8 3.5 - 5.2 g/dL 10/30/2023 6:55 PM EDT [facility] AST, Plasma 20 10 - 35 U/L 10/30/2023 6:55 PM EDT [facility] ALT, Plasma 16 10 - 35 U/L 10/30/2023 6:55 PM EDT [facility] Alkaline Phosphatase, Plasma 82 35 - 104 U/L 10/30/2023 6:55 PM EDT [facility] Total Bilirubin, Plasma 0.6 0.2 - 1.1 mg/dL 10/30/2023 6:55 PM EDT [facility] eGFRcr 84.6 mL/min/1.7 3m*2 10/30/2023 6:55 PM EDT [facility] Comment:Reported eGFRcr in m L/min/1.73m2 is based the CKD-EPI 2020 equation that does not use a race coefficient. Blood Venous blood specimen / Unknown Venipuncture / Unknown 10/30/2023 6:23 PM EDT 10/30/2023 6:30 PM EDT us Asia BALDERRAMA LAB BLOOD ORDERABLES Final Resu lt Performing Organization Address City/[facility]/ZIP Co de Phone Number [facility] [address] [place], [place] [phone] * EKG now - STAT (adult) (10/30/2023 5:34 PM EDT) EKG DIAGNOSIS CLASS Borderline Abnormal MUSE ECG Ventricular Rate 75 BPM MUSE ECG Atrial Rate 75 BPM MUSE ECG MT Interval 184 ms MUSE ECG QRSD Interval 80 ms MUSE ECG QT Interval 360 ms MUSE ECG QTC Interval 402 ms MUSE ECG P [place] 58 degrees MUSE ECG R [place] 76 degrees MUSE ECG T Wave [place] 55 degrees MUSE ECG Diagnosis Normal sinus rhythm MUSE ECG Diagnosis with sinus arrhythmia MUSE ECG Diagnosis Normal ECG MUSE ECG Diagnosis Confirmed by Christos Ramsey [id number]) on 10/31/2023 12:43:43 PM MUSE ECG 10/30/2023 5:34 PM EDT 10/31/2023 12:43 PM EDT us Esperanza Rodriguez MD ECG ORDERABLES Final Result MUSE ECG documented in this encounter Visit Diagnoses Diagnosis Abdominal pain, epigastric- Primary documented in this encounter Administered Medications Inactive Administered Medications - up to 3 most recent administrations Medication Order MAR Action Action Date Dose Rate Site HYDROmorphone (Dilaudid) injection 0.5 mg 0.5 mg, Intravenous, Once, 1 dose, On Sat10/30/23 at 1820, STAT Given 10/30/2023 6:28 PM EDT 0.5 mg iohexol (OMNIPaque) 300 MG/ML injection 100 mL 100 mL, Intravenous, Once in imaging, 1 dose, Starting on Sat10/30/23 at 1858, Until Sat10/30/23 at 1927, Routine, Imaging Protocol Orders Given 10/30/2023 7:27 PM EDT 100 mL lactated Ringer's infusion 1,000 mL 1,000 mL, Intravenous, Once (Bolus), 1 dose, On Sat10/30/23 at 1820, STAT New Bag 10/30/2023 6:29 PM EDT 1,000 mL ondansetron (Zofran) injection 4 mg 4 mg, Intravenous, Once, 1 dose, On Sat10/30/23 at 1820, STAT Given 10/30/2023 6:29 PM EDT 4 mg documented in this encounter Active and Recently Administered Medications Times are shown in EDT. Scheduled Medication Order 10/28/2023 10/29/2023 10/30/2023 HYDROmorphone (Dilaudid) injection 0.5 mg (COMPLETED) 0.5 mg, Intravenous, Once, 1 dose, On Sat10/30/23 at 1820, STAT 182 (Given - Provid er: Grace Fu) iohexol (OMNIPaque) 300 MG/ML injection 100 mL (COMPLETED) 100 mL, Intravenous, Once in imaging, 1 dose, Starting on Sat10/30/23 at 1858, Until Sat10/30/23 at 1927, Routine, Imaging Protocol Orders 1926 (Given - Provid er: Concepcion Bonds) lactated Ringer's infusion 1,000 mL (COMPLETED) 1,000 mL, Intravenous, Once (Bolus), 1 dose, On Sat10/30/23 at 1820, STAT 1828 (New Bag - Prov ider: Grace Fu)1907 (Stopped - Provider: Grace Fu) ondansetron (Zofran) injection 4 mg (COMPLETED) 4 mg, Intravenous, Once, 1 dose, On Sat10/30/23 at 1820, STAT 182 (Given - Provid er: Grace Fu) documented in this encounter Additional Health Concerns Assessment Noted Time A fall risk assessment has been complete d for the patient 08/20/2022 12:23 PM EST A Body Mass Index follow-up plan has been documented for the patient 08/20/2022 1:25 PM EST documented as of this encounter Care Teams Corn Popper Relationship Specialty Start Date End Date Adonis Grimes MD [address] [place] [address] PCP - General 10/30/23 documented as of this encounter
--- OUTSIDE RECORDS SUMMARY | 2024-06-25 10:08 | XMS_ITS | Encounter Summary ---
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 Name Role Phone Adonis Grimes MD Primary Care Provider [phone] Reason for Visit * Reason Comments Anxiety Encounter Details Date Type Department Care Team ([facility] Contact Info) Description 04/29/2024 10:25 PM EDT - 04/30/2024 12:19 AM EDT Emergency [facility] Emergency Department [address] [place] [address] Yumiko Mccartney, DO [address] [place] [address] Anxiety attack (Primary Dx); Urinary tract infection with hematuria, site unspecified Discharge Disposition: Home or Self Care Social [...] EDT Inhaled Oxygen Concentration - - Weight - - Height - - Body Mass Index - - documented in this encounter Discharge Instructions * Discharge Instructions* Saúl Gusman DO - 04/29/2024 11:45 PM EDT Please return to ED if your symptoms worsen, change in location, change in severity, new symptoms develop or if you become concerned for your health. Take antibiotic as prescribed for urinary tract infection. documented in this encounter Medications at Time of Discharge acetaminophen (Tylenol) 325 MG tablet Take 650 mg by mouth if needed. co-enzyme Q-10 30 MG capsule Take 30 mg by mouth 1 (one) time each day. diphenhydrAMINE-acet aminophen (Tylenol PM) 25-500 MG per tablet Take 1 tablet by mouth every night. hydrOXYzine pamoate (Vistaril) 25 MG capsule Take 1 capsule (25 mg) by mouth every 6 (six) hours if needed for anxiety for up to 10 days. 30 capsule 04/30/2024 methylPREDNISolone (Medrol Dospak) 4 MG tablets TAKE BY MOUTH DIRECTED ON INSIDE OF PACKAGE 07/23/2022 prednisoLONE acetate (Pred-Forte) 1 % ophthalmic suspension 08/13/2022 simvastatin (Zocor) 10 MG tablet Take 10 mg by mouth 1 (one) time each day. 08/09/2022 tacrolimus (Protopic) 0.03 % ointment 08/13/2022 cefadroxil (Duricef) 500 MG capsule Take 1 capsule (500 mg) by mouth 2 (two) times a day for 5 days. 10 capsule 04/29/2024 ondansetron ODT (Zofran-ODT) 4 MG disintegrating tablet Take 1 tablet (4 mg) by mouth every 6 (six) hours if needed for nausea. 12 tablet 04/30/2024 4 phenazopyridine (Pyridium) 200 MG tablet Take 1 tablet (200 mg) by mouth 3 (three) times a day with meals for 2 days. 10 tablet 04/30/2024 4 documented as of this encounter Miscellaneous Notes * ED Provider Notes - Saúl Gusman, - 04/29/2024 9:49 PM EDT Images from the original note were not included. - HPI Chief Complaint Patient presents with Anxiety PIT Note Adrianna Cooper is a 48 y.o. female who presents to ED with anxiety. Pt reports that she feels like she has really bad anxiety. Pt reports vomiting, not being able to catch her breath, chest tightness, and her heart is shaking . Pt reports that her is inpatient upstairs with cancerous mass.Pt reports that she was told by a nurse upstairs to present to the ED for rapid heart rate. Patient denies fever, chills, cough, and diarrhea. [place] (main ed): Patient is 40-year-old female, states she has had a lot of emotional stressors recently with her coming into the hospital and diagnosed with lung cancer with brain metastasis. She has been under a lot of stress because of this. Patient states she had an episode approximately 1 hour prior to arrival upstairs where she began to have increasing shortness of breath, chest pressure which has since subsided. Patient does not have any chest pain currently, she denies any cardiac history. 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 Patient History Past Medical History: Diagnosis Date Depression Low back pain 2011 Past Surgical History: Procedure Laterality Date LUMBAR DISCECTOMY 09/2012 TOTAL ABDOMINAL HYSTERECTOMY Family History Problem Relation Name Age of Onset Hepatitis, C Virus Mother Margareth Gutierrez Autoimmune disease Sister Gali Porter Tobacco Use Smoking status: Every Day Current packs/day: 1.00 Average packs/day: 1 pack/day for 15.0 years (15.0 ttl pk-yrs) Types: Cigarettes Smokeless tobacco: Never Vaping Use Vaping status: Never Used Substance Use Topics Alcohol use: Never Drug use: Never Allergies: Allergies Allergen Reactions Codeine Anaphylaxis Morphine Anaphylaxis Sulfa Drugs Anaphylaxis Aspirin Runny nose Penicillins Unknown - Patient states they do not know rxn details Physical Exam ED Triage Vitals [04/29/242] Temp Heart Rate Resp BP 36.6 ??C (97.8 ??F) 109 20 (!) 171/129 SpO2 Temp Source Heart Rate Source Patient Position 98 % Oral Apical Sitting BP Location FiO2 (%) Right arm -- Physical Exam Vitals and nursing note reviewed. Constitutional: General: She is not in acute distress. Appearance: She is well-developed. HENT: Head: Normocephalic and atraumatic. Comments: No facial swelling Mouth/Throat: Mouth: Mucous membranes are moist. Pharynx: Oropharynx is clear. Eyes: Conjunctiva/sclera: Conjunctivae normal. Cardiovascular: Rate and Rhythm: Normal rate and regular rhythm. Heart sounds: No murmur heard. Pulmonary: Effort: Pulmonary effort is normal. No respiratory distress. Breath sounds: Normal breath sounds and air entry. Comments: Speaking full sentences. Symmetric chest rise Abdominal: General: There is no distension. Palpations: Abdomen is soft. Tenderness: There is no abdominal tenderness. Musculoskeletal: General: No swelling or deformity. Normal range of motion. Cervical back: Normal range of motion and neck supple. Comments: Atraumatic, moves all extremities spontaneously Skin: General: Skin is warm and dry. Capillary Refill: Capillary refill takes less than 2 seconds. Neurological: Mental Status: She is alert. Mental status is at baseline. Comments: Awake Psychiatric: Mood and Affect: Mood normal. Behavior: Behavior normal. [place] Coma Scale Score: 15 ED Course & MDM PIT Note Date/Time: 04/29/2024/10:10 PM Entered by Jayy Mancini, acting as scribe for Dr. Berto Grigsby Scribe Attestation: This note was dictated to me, Jayy Mancini, acting as a scribe for Dr. Berto Grigsby Attending Attestation: The documentation was recorded by Jayy Mancini acting as scribe in my presence at the time of the encounter and accurately reflects the service I personally performed. - Assessment: 48 y.o. female presents to ED with complaint of shortness of breath, chest pressure, dysuria. Patient is well-appearing and hemodynamically stable on my assessment. She had an acute onset of shortness of breath with increased respiratory rate and chest pressure as well as tachycardia. She felt as though she could not catch her breath. On my evaluation in the ER her symptoms have mostly subsided. We will obtain a cardiac workup with EKG, troponins, chest x-ray as well as routine labs. Cardiac workup is grossly within normal limits with negative troponin, negative chest x-ray and symptomatic improvement throughout ED stay. Patient was treated for suspected anxiety attack with 1 mg of Ativan which she responded to well. Patient also has dysuria for the last several days, we will treat with cefadroxil x5 days. Differential Diagnosis: ACS PE UTI Costochondritis Anxiety attack In order to fully explore the differential diagnosis the following treatments and tests were ordered: ED Medication Administration from 04/29/20242148 to 04/30/2024 0011 Date/Time Order Dose Route Action 04/29/20242241 EDT LORazepam (Ativan) injection 1 mg 1 mg Intravenous Given All Other Orders Ordered Status Ordering Provider 04/29/24 2310 PROCEDURE ONCE Canceled BERTO GRIGSBY 04/29/24 2311 Urinalysis Microscopic Examination Once Final result [facility] 04/29/24 2246 Urinalysis with reflex microscopic AND reflex culture (IF UTI SUSPECTED) STAT In process [facility] 04/29/24 2246 Urinalysis with reflex microscopic (Culture NOT Included) PROCEDURE ONCE Final result [facility] 04/29/24 2246 Urine Valverde Panel PROCEDURE ONCE In process [facility] 04/29/24 2216 Magnesium STAT Final result [facility] 04/29/24 2216 Thyroid Stimulating Hormone, Plasma STAT Final result BERTO GRIGSBY 04/29/24 2216 Free T4, Plasma STAT Final result [facility] 04/29/24 2216 CMP STAT Final result [facility] 04/29/24 2216 CBC w/diff STAT Final result BERTO GRIGSBY 04/29/24 2216 Troponin now and 120 min STAT Final result BERTO GRIGSBY 04/29/24 2216 XR Chest 1 View One time imaging Final result [facility]EE GRIGSBYY Jl 04/29/24 2216 Insert peripheral IV Continuous Acknowledged BERTO GRIGSBY 04/29/24 2154 EKG now - STAT (adult) Once Preliminary result YUMIKO MCCARTNEY Clinical Impressions as of 04/30/24 0011 Anxiety attack Urinary tract infection with hematuria, site unspecified Social Determinates of Health Risks (including Economic Stability, Education and level of understanding, Healthcare access and quality and concerning social factors): None identified on this visit Ultimately, this patient was Was discharged Home (Discharge) The primary encounter diagnosis was Anxiety attack. A diagnosis of Urinary tract infection with hematuria, site unspecified was also pertinent to this visit. . Patient was counseled on the diagnoses. Discharge medications if any are listed below. Listed medications are thought be eithercurative for listed diagnoses or will help control ongoing symptoms. Patient is requested to followup with Patient's Primary Care Provider in order to obtain routine follow- up. Instructions on follow up as well as precautions to return to the ER provided verbally by the EM provider, as well as written in patients discharge education packet. ED Prescriptions Medication Sig Dispense Start Date End Date Auth. Provider cefadroxil (Duricef) 500 MG capsule Take 1 capsule (500 mg) by mouth 2 (two) times a day for 5 days. 10 capsule 04/29/2024 05/04/2024 Saúl Gusman, DO ondansetron ODT (Zofran-ODT) 4 MG disintegrating tablet Take 1 tablet (4 mg) by mouth every 6 (six)hours if needed for nausea. 12 tablet 04/30/2024 05/30/2024 Saúl Gusman, DO phenazopyridine (Pyridium) 200 MG tablet Take 1 tablet (200 mg) by mouth 3 (three) times a day withmeals for 2 days. 10 tablet 04/30/2024 05/02/2024 Saúl Gusman, DO hydrOXYzine pamoate (Vistaril) 25 MG capsule (Status: Discontinued) Take 1 capsule (25 mg) by mouthevery 6 (six) hours if needed for itching for up to 10 days. 30 capsule 04/30/2024 04/30/2024 Saúl Gusman, DO hydrOXYzine pamoate (Vistaril) 25 MG capsule Take 1 capsule (25 mg) by mouth every 6 (six) hours ifneeded for anxiety for up to 10 days. 30 capsule 04/30/2024 05/10/2024 Saúl Gusman, DO Discharge Instructions Please return to ED if your symptoms worsen, change in location, change in severity, new symptoms develop or if you become concerned for your health. Take antibiotic as prescribed for urinary tract infection. Disposition Discharge - Saúl Gusman DO Resident 04/30/24 0011 Cosigned by Yumiko Mccartney DO at 05/01/2024 12:34 AM EDT Associated attestation - Yumiko Mccartney DO - 05/01/2024 12:34 AM EDT I saw and evaluated the patient with the resident/fellow. I discussed the case with the resident/fellow and agree with the findings and plan as documented. Considered workup for potential PE, however, after shared decision making with patient, she states she feels this is a panic attack and is feeling better after ativan. She would like to be discharged to rest. Strict return precautions given * ED Triage Notes - Ashlee Recio RN - 04/29/2024 9:49 PM EDT Presents via POV d/t worsening anxiety. currently inpatient upstairs. Pt states she has hada rough couple of days. +feels sweaty and chest tightness. documented in this encounter Plan of Treatment Not on file documented as of this encounter Procedures Procedure Name Priority Date/Time Associated Diagnosis Comments SEND ASHA MESSAGE STAT 04/29/2024 11 :05 PM EDT URINALYSIS WITH REFLEX MICROSCOPIC STAT 04/29/2024 11:05 PM EDT URINE VALVERDE PANEL STAT 04/29/2024 11:0 5 PM EDT URINALYSIS MICROSCOPIC FOR UA REFLEX STAT 04/29/2024 11:05 PM EDT URINALYSIS WITH REFLEX MICROSCOPIC STAT 04/29/2024 11:05 PM EDT URINE CULTURE STAT 04/29/2024 11:05 PM EDT XR CHEST 1 VIEW STAT 04/29/2024 10:43 PM EDT TROPONIN T, HIGH SENSITIVITY, 0 HOUR, PLASMA, REFLEX TO 2 HOUR STAT 04/29/2024 10:25 PM EDT CBC WITH AUTO DIFFERENTIAL STAT 04/29/2024 10:25 PM EDT TSH STAT 04/29/2024 10:25 PM EDT FREE T4, PLASMA STAT 04/29/2024 10:25 PM EDT MAGNESIUM, PLASMA STAT 04/29/2024 10: 25 PM EDT COMPREHENSIVE METABOLIC PANEL, PLASMA STAT 04/29/2024 10:25 PM EDT ECG ADULT STAT 04/29/2024 9:59 PM EDT documented in this encounter Results * SEND ASHA MESSAGE (04/29/2024 11:05 PM EDT) Urine Urine specimen obtained by clean catch procedure / Unknown Non-blood Collection / Unknown 04/29/2024 11:05 PM EDT 04/29/2024 11:16 PM EDT Morgan Clark MD LAB URINE ORDERABLES Shelia l Result [facility] [address] [place] [address] * Urine Culture (04/29/2024 11:05 PM EDT) Culture 10,000 - 100,000 CFU/mL Mixed urogenital, fecal, or skin arun present. 05/01/2024 8:18 AM EDT [facility] Urine Urine specimen obtained by clean catch procedure / Unknown Non-blood Collection / Unknown 04/29/2024 11:05 PM EDT 04/29/2024 11:16 PM EDT us Morgan Clark MD LAB MICROBIOLOGY - GENERA L ORDERABLES Final Result Performing Organization Address [facility]/ZIP Co de Phone Number [facility] [address] [place] [address] * Urinalysis Microscopic Examination (04/29/2024 11:05 PM EDT) Urine Urine specimen obtained by clean catch procedure / Unknown Non-blood Collection / Unknown 04/29/2024 11:05 PM EDT 04/29/2024 11:10 PM EDT us Morgan Clark MD LAB URINE ORDERABLES Shelia l Result Performing Organization Address [facility]/ZIP Co de Phone Number [facility] [address] [place] [address] * Urine Valverde Panel (04/29/2024 11:05 PM EDT) Extra Sent for Culture 04/30/2024 1:03 AM EDT [facility] Urine Urine specimen obtained by clean catch procedure / Unknown Non-blood Collection / Unknown 04/29/2024 11:05 PM EDT 04/29/2024 11:16 PM EDT us Morgan Clark MD LAB URINE ORDERABLES Shelia l Result Performing Organization Address [facility]/ZIP Co de Phone Number [facility] [address] [place] [address] * (ABNORMAL) Urinalysis with reflex microscopic (Culture NOT Included) (04/29/2024 11:05 PM EDT) Color, Urine Yellow LAB URINALYSIS - AUTOMATED METHOD 04/29/2024 11:20 PM EDT [facility] Clarity, Urine Cloudy LAB URINALYSIS - AUTOMATED METHOD 04/29/2024 11:20 PM EDT [facility] Spec [place], Urine 1.022 1.005 - 1.030 LAB URINALYSIS - AUTOMATED METHOD 04/29/2024 11:20 PM EDT [facility] pH, Urine >=8.5(H) 4.5 to 8 LAB URINALYSIS - AUTOMATED METHOD 04/29/2024 11:20 PM EDT [facility] Protein, Urine 100(A) Negative mg/dL LAB URINALYSIS - AUTOMATED METHOD 04/29/2024 11:20 PM EDT [facility] Glucose, Urine Negative Negative mg/dL LAB URINALYSIS - AUTOMATED METHOD 04/29/2024 11:20 PM EDT [facility] Ketones, Urine Trace(A) Negative mg/dL LAB URINALYSIS - AUTOMATED METHOD 04/29/2024 11:20 PM EDT [facility] Blood, Urine Moderate(A) Negative LAB URINALYSIS - AUTOMATED METHOD 04/29/2024 11:20 PM EDT [facility] Bilirubin, Urine Negative Negative LAB URINALYSIS - AUTOMATED METHOD 04/29/2024 11:20 PM EDT [facility] Urobilinogen, Urine 1.0 0.2 to 1.0 mg/dL LAB URINALYSIS - AUTOMATED METHOD 04/29/2024 11:20 PM EDT [facility] Leukocytes, Urine Small(A) Negative LAB URINALYSIS - AUTOMATED METHOD 04/29/2024 11:20 PM EDT [facility] Nitrite, Urine Negative Negative LAB URINALYSIS - AUTOMATED METHOD 04/29/2024 11:20 PM EDT [facility] RBC, Urine >50(A) 0 to 3 /HPF LAB URINALYSIS - AUTOMATED METHOD 04/29/2024 11:20 PM EDT [facility] Comment:This result was prev iously suppressed from the chart. WBC, Urine 21 - 50(A) 0 to 5 /HPF LAB URINALYSIS - AUTOMATED METHOD 04/29/2024 11:20 PM EDT [facility] Comment:This result was prev iously suppressed from the chart. Squamous Epithelial Cells 3 - 5 0 to 5 /HPF LAB URINALYSIS - AUTOMATED METHOD 04/29/2024 11:20 PM EDT [facility] Comment:This result was prev iously suppressed from the chart. Hyaline Casts 0 - 2 0 to 5 /LPF LAB URINALYSIS - AUTOMATED METHOD 04/29/2024 11:20 PM EDT [facility] Comment:This result was prev iously suppressed from the chart. Bacteria, Urine Present Negative LAB URINALYSIS - AUTOMATED METHOD 04/29/2024 11:20 PM EDT [facility] Comment:This result was prev iously suppressed from the chart. Urine Urine specimen obtained by clean catch procedure / Unknown Non-blood Collection / Unknown 04/29/2024 11:05 PM EDT 04/29/2024 11:10 PM EDT us Morgan Clark MD LAB URINE ORDERABLES Shelia susie Result [facility] [address] [place] [address] * XR Chest 1 View (04/29/2024 10:43 [...] MD IMG XR PROCEDURES Final Result * Free T4, Plasma (04/29/2024 10:25 PM EDT) Free T4, Plasma 1.2 0.8 - 1.7 ng/dL 04/29/2024 11:10 PM EDT [facility] Blood Venous blood specimen / Unknown Venipuncture / Unknown 04/29/2024 10:25 PM EDT 04/29/2024 10:33 PM EDT Narrative [facility] - 04/29/2024 11:10 PM EDT Free T4 Trimester Specific Ranges 1st Trimester ??0.9??- 1.50 ng/dL 2nd Trimester ??0.7 - 1.40 ng/dL 3rd Trimester ??0.7??- 1.24 ng/dL us Berot Grigsby MD LAB BLOOD ORDERABLES Final Resul t [facility] [address] [place] [id number] * Thyroid Stimulating Hormone, Plasma (04/29/2024 10:25 PM EDT) Thyroid Stimulating Hormone, Plasma 2.65 0.40 - 4.20 uIU/mL 04/29/2024 11:10 PM EDT [facility] Blood Venous blood specimen / Unknown Venipuncture / Unknown 04/29/2024 10:25 PM EDT 04/29/2024 10:33 PM EDT Narrative [facility] - 04/29/2024 11:10 PM EDT Trimester Specific Ranges ?TSH (??IU/mL) 1st Trimester ??0.1 ??- 3.0 2nd Trimester ??0.19 - 4.06 3rd Trimester ??0.3 ??- 3.7 us Berto Grigsby MD LAB BLOOD ORDERABLES Final Resul t Performing Organization Address [facility] Co de Phone Number [facility] [address] [place] [address] * Magnesium (04/29/2024 10:25 PM EDT) Magnesium, Plasma 2.0 1.9 - 2.4 mg/dL 04/29/2024 11:10 PM EDT [facility] Blood Venous blood specimen / Unknown Venipuncture / Unknown 04/29/2024 10:25 PM EDT 04/29/2024 10:33 PM EDT us Berto Grigsby MD LAB BLOOD ORDERABLES Final Resul t Performing Organization Address [facility] Phone Number [facility] [address] [place] [address] * Troponin now and 120 min (04/29/2024 10:25 PM EDT) Troponin T, High Sensitivity, 0 Hour <6 <14 ng/L 04/29/2024 11:10 PM EDT [facility] Blood Venous blood specimen / Unknown Venipuncture / Unknown 04/29/2024 10:25 PM EDT 04/29/2024 10:33 PM EDT us Berto Grigsby MD LAB BLOOD ORDERABLES Final Resul t Performing Organization Address [facility] Co de Phone Number [facility] [address] [place] [address] * (ABNORMAL) CBC w/diff (04/29/2024 10:25 PM EDT) WBC Count 9.99 3.70 - 10.30 10*3/uL LAB HEMATOLOGY METHOD 04/29/2024 10:40 PM EDT [facility] RBC Count 4.86 3.90 - 5.20 10*6/uL LAB HEMATOLOGY METHOD 04/29/2024 10:40 PM EDT [facility] HGB 15.5 11.2 - 15.7 g/dL LAB HEMATOLOGY METHOD 04/29/2024 10:40 PM EDT [facility] HCT 42.4 34.0 - 45.0 % LAB HEMATOLOGY METHOD 04/29/2024 10:40 PM EDT [facility] Platelet Count 330 155 - 369 10*3/uL LAB HEMATOLOGY METHOD 04/29/2024 10:40 PM EDT [facility] MCV 87 79 - 98 fL LAB HEMATOLOGY METHOD 04/29/2024 10:40 PM EDT [facility] MCH 31.9 26.0 - 32.0 pg LAB HEMATOLOGY METHOD 04/29/2024 10:40 PM EDT [facility] MCHC 36.6(H) 30.7 - 35.5 g/dL LAB HEMATOLOGY METHOD 04/29/2024 10:40 PM EDT [facility] RDW 12.8 11.5 - 14.5 % LAB HEMATOLOGY METHOD 04/29/2024 10:40 PM EDT [facility] MPV 10.5 8.8 - 12.5 fL LAB HEMATOLOGY METHOD 04/29/2024 10:40 PM EDT [facility] nRBC 0.0 <=0.0 per 100 WBCs LAB HEMATOLOGY METHOD 04/29/2024 10:40 PM EDT [facility] Differential Type Automated LAB HEMATOLOGY METHOD 04/29/2024 10:40 PM EDT [facility] Neutrophils % 76.0 % LAB HEMATOLOGY METHOD 04/29/2024 10:40 PM EDT [facility] Lymphocytes % 15.0 % LAB HEMATOLOGY METHOD 04/29/2024 10:40 PM EDT [facility] Monocytes % 7.0 % LAB HEMATOLOGY METHOD 04/29/2024 10:40 PM EDT [facility] Eosinophils % 1.0 % LAB HEMATOLOGY METHOD 04/29/2024 10:40 PM EDT [facility] Basophils % 1.0 % LAB HEMATOLOGY METHOD 04/29/2024 10:40 PM EDT [facility] Immature Granulocytes % 0.0 % LAB HEMATOLOGY METHOD 04/29/2024 10:40 PM EDT [facility] Neutrophils Absolute 7.55(H) 1.60 - 6.10 10*3/uL LAB HEMATOLOGY METHOD 04/29/2024 10:40 PM EDT [facility] Lymphocytes Absolute 1.53 1.20 - 3.90 10*3/uL LAB HEMATOLOGY METHOD 04/29/2024 10:40 PM EDT [facility] Monocytes Absolute 0.71 0.30 - 0.90 10*3/uL LAB HEMATOLOGY METHOD 04/29/2024 10:40 PM EDT [facility] Eosinophils Absolute 0.11 0.00 - 0.50 10*3/uL LAB HEMATOLOGY METHOD 04/29/2024 10:40 PM EDT [facility] Basophils Absolute 0.05 0.00 - 0.10 10*3/uL LAB HEMATOLOGY METHOD 04/29/2024 10:40 PM EDT [facility] Immature Granulocytes Absolute 0.04 0.00 - 0.06 10*3/uL LAB HEMATOLOGY METHOD 04/29/2024 10:40 PM EDT [facility] Blood Venous blood specimen / Unknown Venipuncture / Unknown 04/29/2024 10:25 PM EDT 04/29/2024 10:33 PM EDT Narrative [facility] - 04/29/2024 10:40 PM EDT Therapeutic decision making should be based on absolute values, rather than percentages. us Berto Grigsby MD LAB BLOOD ORDERABLES Final Resul t [facility] [address] [place] [address] * (ABNORMAL) CMP (04/29/2024 10:25 PM EDT) Glucose, Plasma 107(H) 74 - 99 mg/dL 04/29/2024 11:10 PM EDT [facility] BUN, Plasma 12 7 - 21 mg/dL 04/29/2024 11:10 PM EDT [facility] Creatinine, Plasma 0.90 0.60 - 1.10 mg/dL 04/29/2024 11:10 PM EDT [facility] BUN/Creatinine Ratio 13 04/29/2024 11:10 PM EDT [facility] Sodium, Plasma 143 136 - 145 mmol/L 04/29/2024 11:10 PM EDT [facility] Potassium, Plasma 3.8 3.6 - 4.9 mmol/L 04/29/2024 11:10 PM EDT [facility] Chloride, Plasma 106 97 - 107 mmol/L 04/29/2024 11:10 PM EDT [facility] CO2, Plasma 22 22 - 29 mmol/L 04/29/2024 11:10 PM EDT [facility] Anion Gap 15 6 - 16 mmol/L 04/29/2024 11:10 PM EDT [facility] Total Calcium, Plasma 10.0 8.9 - 10.2 mg/dL 04/29/2024 11:10 PM EDT [facility] Total Protein 7.6 6.3 - 7.9 g/dL 04/29/2024 11:10 PM EDT [facility] Albumin, Plasma 4.9 3.5 - 5.2 g/dL 04/29/2024 11:10 PM EDT [facility] AST, Plasma 22 10 - 35 U/L 04/29/2024 11:10 PM EDT [facility] Comment:Hemolyzed, result ma y be falsely increased. ALT, Plasma 16 10 - 35 U/L 04/29/2024 11:10 PM EDT [facility] Alkaline Phosphatase, Plasma 102 35 - 104 U/L 04/29/2024 11:10 PM EDT [facility] Total Bilirubin, Plasma 0.4 0.2 - 1.1 mg/dL 04/29/2024 11:10 PM EDT [facility] eGFRcr 79.0 mL/min/1.7 3m*2 04/29/2024 11:10 PM EDT [facility] Comment:Reported eGFRcr in m L/min/1.73m2 is based the CKD-EPI 2020 equation that does not use a race coefficient. Blood Venous blood specimen / Unknown Venipuncture / Unknown 04/29/2024 10:25 PM EDT 04/29/2024 10:33 PM EDT us Berto Grigsby MD LAB BLOOD ORDERABLES Final Resul t [facility] [address] [place] [address] * EKG now - STAT (adult) (04/29/2024 9:59 PM EDT) EKG DIAGNOSIS CLASS Normal MUSE ECG Ventricular Rate 97 BPM MUSE ECG Atrial Rate 97 BPM MUSE ECG MT Interval 178 ms MUSE ECG QRSD Interval 72 ms MUSE ECG QT Interval 366 ms MUSE ECG QTC Interval 464 ms MUSE ECG P Kimberly 53 degrees MUSE ECG R Kimberly 70 degrees MUSE ECG T Wave Kimberly 61 degrees MUSE ECG Diagnosis Normal sinus rhythm MUSE ECG Diagnosis Normal ECG MUSE ECG Diagnosis Confirmed by Chrsitos Ramsey ([id number]) on 04/30/2024 1:04:27 PM MUSE ECG 04/29/2024 9:59 PM EDT 04/30/2024 1:04 PM EDT us Yumiko Mccartney DO ECG ORDERABLES Final Result MUSE ECG documented in this encounter Visit Diagnoses Diagnosis Anxiety attack- Primary Panic disorder without agoraphobia Urinary tract infection with hematuria, site unspecified documented in this encounter Administered Medications Inactive Administered Medications - up to 3 most recent administrations Medication Order MAR Action Action Date Dose Rate Site cefadroxil (Duricef) capsule 500 mg 500 mg, Oral, Once, 1 dose, On Serenity 04/30/24 at 0000, Routine Given 04/30/2024 12:17 AM EDT 500 mg LORazepam (Ativan) injection 1 mg 1 mg, Intravenous, Once, 1 dose, On Sat04/29/24 at 2220, STAT Given 04/29/2024 10:42 PM EDT 1 mg documented in this encounter Active and Recently Administered Medications Times are shown in EDT. Scheduled Medication Order 04/28/2024 04/29/2024 04/30/2024 cefadroxil (Duricef) capsule 500 mg (COMPLETED) 500 mg, Oral, Once, 1 dose, On Serenity 04/30/24 at 0000, Routine 0017 (Given - Provid er: Peyton Levine) LORazepam (Ativan) injection 1 mg (COMPLETED) 1 mg, Intravenous, Once, 1 dose, On Sat04/29/24 at 2220, STAT 2242 (Given - Provider: Peyton Levine) documented in this encounter Additional Health Concerns Assessment Noted Time A fall risk assessment has been complete d for the patient 08/20/2022 12:23 PM EST A Body Mass Index follow-up plan has been documented for the patient 08/20/2022 1:25 PM EST documented as of this encounter Care Teams Welt Edge Rounder Relationship Specialty Start Date End Date Adonis Grimes MD [address] [place] [address] PCP - General 10/30/23 documented as of this encounter
--- OUTSIDE RECORDS SUMMARY | 2024-06-25 10:08 | XMS_ITS | Encounter Summary ---
Author Organization [facility] Address [address] [place] [address] Care Team Providers Care Clerk Of Court Name Role Phone Unavailable Primary Care Provider Unavailabl e Encounter Details Date Type Department Care Team (Late st Contact Info) Description 10/07/2012 Conversion Encounter [facility] HISTORICAL CONV [address] [place] [address] Interface, See Report Social History Tobacco Use Types Packs/Day Years Used Date Smoking Tobacco: Never Assessed Comments Unknown Sex and Gender Information Value Date Recorded Sex Assigned at Not on file Legal Sex Female 1:30 PM EDT Gender Identity Not on file Sexual Orientation Not on file documented as of this encounter Plan of Treatment Not on file documented as of this encounter Procedures Procedure Name Priority Date/Time Associated Diagnosis Comments CONVERTED (HISTORICAL) SURGICAL PATHOLOGY Routine 10/07/2012 5:58 AM EDT documented in this encounter Results * Converted Surgical Pathology (10/07/2012 5:58 AM EDT) 10/07/2012 5:58 AM EDT Narrative [facility] - 10/08/2012 9:54 AM EDT [address] [address] SURGICAL PATHOLOGY REPORT Patient Name: ADRIANNA CAO MR#: [id number] : 1975 Gender: F Ordering Physician: STEVEN ABBASI Copy To: ?? Location: [address] [place] [address] Collected: 10/07/2012 Received: 10/07/2012 Reported: 10/08/2012 Clinical Diagnosis and History The working history is HNP L4-5. Final Diagnosis Intervertebral disc (L4-L5 left): Fibrocartilage from intervertebral disc. MHB/rw Amendments: Electronically Signed Out By CORINA CULP Specimen(s) Received: Intervertebral disc Gross Description Received in formalin labeled disc is a 2.5 x 2.5 x 0.5 cm aggregate of castro fibrocartilaginous soft tissue fragments submitted in toto in one cassette. HBM/sk Microscopic Description Sections of the intervertebral disc material demonstrate fibrocartilage without inflammation or neoplasia. ??MHB/rw Procedures/Addenda us See Report Interface PATHOLOGY/CYTOLOGY [place] [address], documented in this encounter Visit Diagnoses Not on filedocumented in this encounter
--- NOTE | 2024-06-25 10:10 | XR_ITS ---
FINAL REPORT CLINICAL HISTORY: R shoulder pain COMPARISON: None FINDINGS: RIGHT SHOULDER 3 views demonstrate no acute fracture or dislocation. There is mild AC joint degenerative change. The visualized bony structures are well aligned. No soft tissue abnormality is seen. IMPRESSION: Mild degenerative change without acute process. Reviewed, Interpreted and Dictated by Morgan Norris III, MD Transcribed by Juliaan Infante Authenticated and [facility]
--- NOTE | 2024-06-25 10:10 | XR_ITS ---
FINAL REPORT CLINICAL HISTORY: neck pain COMPARISON: None FINDINGS: CERVICAL SPINE 5 views were obtained. There is no acute fracture or malalignment. There is straightening of the cervical spine likely due to positioning or muscle spasm. There is mild degenerative change with osteophyte formation. Presumed left coronary artery calcifications are noted. IMPRESSION: Mild degenerative change and straightening of the cervical spine which may be due to positioning or muscle spasm. Reviewed, Interpreted and Dictated by Morgan Norris III, MD Transcribed by Juliana Infante Authenticated and [facility]
== END 2024-06-25 23:59 | disposition home or self-care (01) ==
LOC: RAD 10:06
PROVIDERS: PCP Student in an Organized Health Care Education/Training Program; Visit Provider Student in an Organized Health Care Education/Training Program
DX: M54.2 Cervicalgia (principal); M25.511 Pain in right shoulder
CPT/HCPCS: 72050; 73030

== ENCOUNTER 2024-07-24 09:27 | Outpatient (CLI) | payer BC, SELFPAY ==
[2024-07-24 09:55] LABS: Basophils # 0.1 K/mm3 (0-0.2); Basophils % 0.8 % (0.1-2.0); Eosinophils # 0.2 K/mm3 (0.0-0.4); Eosinophils % 2.9 % (0.1-12.0); Hematocrit 41.8 % (37.0-47.0); Hemoglobin 14.9 g/dL (12.2-16.2); Lymphocytes # 1.8 K/mm3 (0.7-4.5); Lymphocytes % 24.1 % (10-50); Mean Corpuscular HGB Conc 35.6 g/dL (31.8-35.4); Mean Corpuscular Hemoglobin 31.7 pg (27.0-31.2); Mean Corpuscular Volume 88.9 fl (81-99); Mean Platelet Volume 10.2 fl (7.4-10.4); Monocytes # 0.6 K/mm3 (0.1-1.0); Monocytes % 7.9 % (1.7-9.3); Neutrophils # 4.9 K/mm3 (1.8-7.8); Platelet Count 317 K/mm3 (142-424); Red Cell Distribution Width 12.7 % (11.5-17.5); White Blood Count 7.6 K/mm3 (4.8-10.8)
[2024-07-24 10:32] LABS: Alanine Aminotransferase 24 U/L (12-78); Albumin Level 4.5 g/dl (3.5-5.0); Alkaline Phosphatase 87 U/L (38-126); Anion Gap 12.1 mEq/L (5-15); Aspartate Amino Transferase 29 U/L (14-36); Bilirubin,Direct 0.4 mg/dl (0.0-0.4); Bilirubin,Indirect 0.1 mg/dL (0.0-0.9); Bilirubin,Total 0.5 mg/dl (0.2-1.3); Bilirubin,Unconjugated 0.1 mg/dL (0.0-1.1); Blood Urea Nitrogen 10 mg/dl (7-17); Carbon Dioxide 24 mmol/L (22.0-30.0); Chloride 106 mmol/L (98-107); Chol/HDL Ratio 8.5 (1-3.5); Cholesterol 296 mg/dl (140-200); Estimated Glomerular Filt Rate 89 ml/min (>60); GFR (African American) 108 ML/MIN (>60); Glucose 104 mg/dl (74-100); HDL Cholesterol 35 mg/dl (40-60); Potassium 4.1 mmoL/L (3.5-5.1); Sodium 138 mmol/L (136-145); Total Protein,Serum 6.9 g/dl (6.3-8.2); Triglycerides 355 mg/dl (30-150); VLDL Cholesterol 71 mg/dL (0-40)
[2024-07-24 10:46] LABS: Direct LDL Cholesterol 176.78 mg/dL (100-129)
[2024-07-24 11:01] LABS: Free T4 (Free Thyroxine) 0.63 ng/dl (0.78-2.19)
== END 2024-07-24 23:59 | disposition home or self-care (01) ==
LOC: LAB 09:28
PROVIDERS: PCP Student in an Organized Health Care Education/Training Program; Visit Provider Physician Assistant
DX: E78.5 Hyperlipidemia, unspecified (principal); R94.31 Abnormal electrocardiogram [ECG] [EKG]; I25.10 Atherosclerotic heart disease of native coronary artery without angina pectoris; R06.00 Dyspnea, unspecified; Z72.0 Tobacco use
CPT/HCPCS: 36415; 80048; 80061; 80076; 82565; 84439; 84443; 84520; 85025

== ENCOUNTER 2024-08-04 10:00 | Outpatient (CLI) | payer BC, SELFPAY ==
--- NOTE | 2024-08-04 | CA_ITS ---
APPROVED REPORT Exam: Exercise Treadmill Technologist: Martha Lmoas Ht: 5 ft 7 in Wt: 178 lbs BSA: 1.92 m2 HR: 78 bpm BP: 141/91 mmHg Rhythm: NSR Stress Test Details Test: Exercise stress testing was performed using a Michael protocol. HR Resting HR: 78 bpm Max Heart Rate (APMHR): 171 bpm Max HR Achieved: 163 bpm Target HR (85% APMHR): 145 bpm % of APMHR: 95 Recovery HR: 98 bpm HR response to stress: Normal HR response to stress BP Resting BP: 141.0/91.0 mmHg Max BP: 176.0/88.0 mmHg Recovery BP: 125.0/83.0 mmHg BP response to stress: Normal blood pressure response to stress. ECG Resting ECG: Sinus rhythm Stress ECG: < 0.[address] depression Arrhythmia: PVCs Clinical Exercise duration: 6:42 min Exercise capacity: 8.3 METs Overall Exercise Capacity for Age: Average Stress ECG Conclusion Symptoms: Dyspnea, racing heart, leg pain. Arrhythmias/Ectopy: PVC ST-T Changes: <0.[address] depression Conclusion: Average exercise capacity. EKG normal response to exercise. Electronically signed by : Haydee Valverde MD 08/04/2024 12:29:36
== END 2024-08-04 23:59 | disposition home or self-care (01) ==
LOC: RT 10:01
PROVIDERS: PCP Student in an Organized Health Care Education/Training Program; Visit Provider Physician Assistant
DX: R06.00 Dyspnea, unspecified (principal)
CPT/HCPCS: 93017; 93018; J7613

== ENCOUNTER 2025-04-26 09:46 | Outpatient (CLI) | payer BC, SELFPAY ==
--- NOTE | 2025-04-26 09:52 | XR_ITS ---
FINAL REPORT CLINICAL HISTORY: right shoulder pain, burning and tingling at night time COMPARISON: 06/25/2024 FINDINGS: 2 views of the right shoulder were obtained. There is no fracture or dislocation. The joint space is preserved. Soft tissues are unremarkable. IMPRESSION: No acute osseous abnormality of the right shoulder. Reviewed, Interpreted and Dictated by Terra Rivera MD Transcribed by Juliana Infante Authenticated and [facility]
--- OUTSIDE RECORDS SUMMARY | 2025-04-26 09:53 | XMS_ITS | Continuity of Care Document ---
Author Organization [place] - [place] - [place] & [place], [facility] Address [address] [facility] [address] [place] [address] Assessment Encounter Date Assessment Date Assessment LastModified by Organization Details LastModified Time 04/05/2025 04/05/2025 Mrs. Cooper is a 49 year old female here for hospital follow up. She was seen at [facility] ER 03/30 for abdominal pain and nausea. Not available 03/31/2025 13:52:55 Plan of Treatment Reminders Order Date Submit Date Provider Last Modified By Organization Details Last Modified Time Details Appointments Establish ed Visit 15 min 2024 08:30A M PINO HESTER NP Not available Not available Not available Lab None recorded. Referral None recorded. Procedures None recorded. Surgeries None recorded. Imaging None recorded. Medication Orders hyoscyami ne sulfate 0.125 mg tablet 2024 09 025 [facility], [address] [facility] [address] [place], [address], 04/05/2025 11:41:54 Patient TargetsNo targets recorded. Patient Instructions Encounter Date Encounter Id Patient Instructions Last Modified By Organization Details Last Modified Time 04/05/2025 [id number] f/u after procedure Not available 04/05/2025 11:48:02 Reason for Referral None Reported. Results Created Date Observation Date Name Description Value Unit Range Abnormal Flag Note LastModifiedBy Organization Detail LastModifiedTime 03/31/2003/30/2025 CT, abdom en + pelvi s, w/ contr ast No observ ation record ed. [email or web address] l Not Available 03/31/2025 13:40:55 Result Notes None recorded. Medical Equipment None Reported. Medications Name Sig Start Date Stop Date Status Note LastModified by Organization Details LastModified Time dicyclomine 20 mg tablet TAKE 1 TABLET BY MOUTH 4 TIMES DAILY NEEDED FOR ABDOMINAL PAIN 04/05 completed Not Available Not Available Not Available hyoscyamine sulfate 0.125 mg tablet Take 1 tablet every 4 hours by oral route as needed for 30 days, for Abdominal pain. 2024 active Not Available Not Available Not Avai lable ondansetron 4 mg disintegrat ing tablet DISSOLVE 1 TABLET IN MOUTH EVERY 6 TO 8 HOURS NEEDED active Not Available Not Available No t Available omeprazole once daily active Not Available Not Available No t Available sodium,pota ssium,mag sulfates 17.5 gram-3.13 gram-1.6 gram oral soln TAKE DIRECTED FOR COLONOSCO PY PREP active Not Available Not Available No t Available Vitals Date Recorded Body height Body mass index (BMI) Body weight Body temperature Oxygen saturation Oxygen saturation in Arterial blood by Pulse oximetry Systolic And Diastolic Provider Name and Address Organization Details Last Updated DateTime 5 170.18 cm 22.7 kg/m2 41134.8 9 g 98.9 [degF] 97 % 97 % 122/92 mm[Hg] Yolanda [facility] [place] 5 11:13:24 Social History None recorded. Functional Status None recorded. Mental Status None recorded. Family History Nothing Reported. Medical History No medical history recorded. Gynecological HistoryNo gynecological history recorded. Obstetrics History GPAL:G 0 P 0 0 0 0 Immunizations Vaccine Type Date Status Note Provider Nam e and Address Organization Details Recorded Time Tdap 09/15/2013 completed Not Available [facility] 04/05/2025 11:07:16 Tdap 02/12/2022 completed Not Available [facility] 04/05/2025 11:07:16 Past Encounters Encounter ID Performer Location Encounter Start Date Encounter Closed Date Diagnosis/Indication Diagnosis SNOMED-CT Code Diagnosis ICD10 Code Diagnosis IMO Codes Diagnosis Note [id number] PINO HESTER NP [facility] [address] [address] 04/05/2025 11:06:36 04/05/2025 11:47:57 Nausea 231209362 R11.0 68239 - improved with zofran Lower abdominal pain 545 47588 R10.30 895867 - dicyclomin e helpful but causes itching Ileitis 70867793 K52.9 83899 - schedule colonoscop y as above Gastroesop hageal reflux disease without esophagitis 859415436 K21.9 424998 - continue Omeprazole - Schedule EGD- Elevation of head of the bed- Remain upright 2 to 3 hours after eating- Dietary modificati on: Avoidance of triggers such as fatty foods, caffeine, chocolate, spicy foods, food with high fat content, carbonated beverages, peppermint , acidic and citrus items Abdominal bloating 39919 9008 R14.0 01017 - disacchari de panel w/ EGD Liver cyst 38892048 K76. 89 468575 - 03/30 small 0.7 mm liver cyst noted on CT A/P- Discussed CT in 6 months to monitor growth Screening for malignant neoplasm of colon done 7434712140 66599 Z12.11 4837089509 - Due for 1st colonosocp y- family hx polyps Health Concerns Section Related Observation LastModified by Organization Detai ls LastModified Time None Recorded Concern Status LastModified by Organization Details LastModified Time None Recorded Payers Encounter Date Sequence Insurance Name Policy Number Policy Foy Covered Member ID Foy Member ID Guarantor Name 04/05/2025 1 *SELF PAY* Do eliu Cooper Notes Date Note Type Note Provider Name and Address Organization Details Recorded Time 04/05/2025 text/html Mrs. Cooper is a 49 year old female here for hospital follow up. She was seen at [facility] ER 03/30 for abdominal pain and nausea. Abdominal pain was epigastric and woke her out of sleep. She also had on going nausea. CT A/P showed distal ileal small bowel wall thickening and standing. As well as small liver and lung lesion. She was discharged with dicyclomine and zofran. Her sister stopped by our office 03/31 due to Zofran every 6 hours not controlling nausea. I told her that I could not prescribe any medications without seeing the patient. I recommended symptomatic treatment with dietary changes. I did let her know that taking zofran every 4 hours if needed was ok short term as long as patient has no heart history. Patient reports today nausea has improved with zofran. She feels dicyclomine is helpful for abdominal pain, but it causes itching. She would like to try something different. She reports long history of bowel difficulties. She has cyclic constipation and diarrhea. She has never had EGD or colonosocpy. Both siblings have had polyps removed. No history colon cancer. She had not had an blood in stool recently but did a couple months ago. She denies any unintentional weight loss. PINO HESTER, DEBURRING AND TOOLING MACHINE OPERATOR [address] [facility], [place], [address], [facility] - [place] - [place] & [place] 04/05/2025 11:53:07 OBGyn Episode No OBEpisode recorded.
--- OUTSIDE RECORDS SUMMARY | 2025-04-26 09:54 | XMS_ITS | Clinical Summary ---
Author Organization Healthcare Address [address] [place] [address] Care Team Providers Care Senior Care Specialist Name Role Phone Adonis Grimes MD Primary Care Provider [phone] Allergies Active Allergy Reactions Criticality Noted Date Comments Aspirin Runny nose Medium 08/20/2022 Codeine Anaphylaxis High 08/20/2022 Morphine Anaphylaxis High 08/20/2022 Penicillins Unknown - Patient st ates they do not know rxn details Low 10/30/2023 Sulfa Drugs Anaphylaxis High 08/20/2022 Medications methylPREDNISol one (Medrol Dospak) 4 MG tablets TAKE BY MOUTH DIRECTED ON INSIDE OF PACKAGE 07/23/2022 Active prednisoLONE acetate (Pred-Forte) 1 % ophthalmic suspension 08/13/2022 Active tacrolimus (Protopic) 0.03 % ointment 08/13/2022 Active simvastatin (Zocor) 10 MG tablet Take 10 mg by mouth 1 (one) time each day. 08/09/2022 Active co-enzyme Q-10 30 MG capsule Take 30 mg by mouth 1 (one) time each day. Active acetaminophen (Tylenol) 325 MG tablet Take 650 mg by mouth if needed. Active diphenhydrAMINE -acetaminophen (Tylenol PM) 25-500 MG per tablet Take 1 tablet by mouth every night. Active hydrOXYzine pamoate (Vistaril) 25 MG capsule Take 1 capsule (25 mg) by mouth every 6 (six) hours if needed for anxiety for up to 10 days. 30 capsule 04/30/2024 Active Family History Medical History Relation Name Comments Hepatitis, C Virus Mother Margareth Gutierrez Autoimmune disease Sister Gali German Relation Name Status Comments Mother Margareth Gutierrez [...] 95 04/30/2024 12:09 AM EDT Temperature 36.6 C (97.8 F) 04/29/2024 9:54 PM EDT Respiratory Rate 16 04/30/2024 12:09 AM EDT Oxygen Saturation 97% 04/30/2024 12:09 AM EDT Inhaled Oxygen Concentration - - Weight 74.8 kg (165 lb) 10/30/2023 5:41 PM EDT Height 170.2 cm (5' 7 ) 10/30/2023 5:41 PM EDT Body Mass Index 25.84 10/30/2023 5:41 PM EDT Plan of Treatment Health Maintenance Due Date Last Done Comments [facility]-Infant/Child/Adol SDOH Screenings 1975 [facility]- SDOH Screenings 1993 [facility]-Adult SDOH Screenings 1993 [facility]-Hepatitis B Vaccines (1 of 3 - 19+ 3-dose series) 1994 [facility]-Pneumococcal Vaccine: Pediatrics (0 to 5 Years) and At-Risk Patients (6 to 49 Years) (1 of 2 - PCV) 1994 [facility]-Pap Smear 1996 [facility]-Cervical Cancer Screening 2005 [facility]-HPV/Cotest 2005 CT Colonography 2020 Colonoscopy 2020 FIT-DNA 2020 FIT 2020 FOBT 2020 Sigmoidoscopy 2020 [facility]-Colorectal Cancer Screening 2020 [facility]-Depression Screening 08/20/2023 08/20/2022 [id number] Vaccine (1 - season) 2025 [facility]-Influenza Vaccine (#1) 2025 [facility]-Zoster Vaccines (1 of 2) 2025 [facility]-DTaP,Tdap,and Td Vaccine s (3 - Td or Tdap) 02/13/2032 02/12/2022, 09/15/2013 [facility]-Obesity Intervention Completed 08/20/2022 [facility]-HIV Screening Completed 10/30/2023 [facility]-Hepatitis C Screening Completed 2023, 08/20/2022 HPV Vaccines Aged Out No longer eligi ble based on patient's age to complete this topic [facility]-HIB Vaccines Aged Out No longer e [...] Procedure Name Priority Date/Time Associated Diagnosis Comments HEPATITIS C ANTIBODY - ED W/REFLEX TO HCV QUANT PCR STAT 10/30/2023 6:23 PM EDT ED HIV 1/2 ANTIBODY/ANTIGEN SCREEN WITH REFLEX TO HIV I/II DIFFERENTIATION STAT 10/30/2023 6:23 PM EDT from Last 3 Months or Most Recently Relevant to Health Maintenance Results * ED HIV 1/2 Antibody/Antigen Screen w/Reflex to HIV 1/2 Differentiation (10/30/2023 6:23 PM EDT) HIV 1 & 2 Antibody/Antigen Screen Non Reactive Non Reactive 10/30/2023 7:04 PM EDT [facility] Comment:Screening for HIV 1 & 2 antibodies, and P24 antigen is NONREACTIVE. No confirmatory testing is required. Blood Venous blood specimen / Unknown Venipuncture / Unknown 10/30/2023 6:23 PM EDT 10/30/2023 6:30 PM EDT us Summar Joe PA LAB BLOOD ORDERABLES Final Resu lt [facility] [address] [place] [address] * Hepatitis C Antibody - ED (10/30/2023 6:23 PM EDT) Hepatitis C Antibody Negative Negative 10/30/2023 7:01 PM EDT HEALTHCARE LAB Blood Venous blood specimen / Unknown Venipuncture / Unknown 10/30/2023 6:23 PM EDT 10/30/2023 6:30 PM EDT us Summar Joe PA LAB BLOOD ORDERABLES Final Resu lt Performing Organization Address City/[facility]/ZIP Co de Phone Number HEALTHCARE LAB [address] [place] [address] from Last 3 Months or Most Recently Relevant to Health Maintenance Insurance ANTHEM Care Teams Senior Care Specialist Relationship Specialty Start Date End Date Adonis Grimes MD [address] [place] [address] PCP - General 10/30/23
--- OUTSIDE RECORDS SUMMARY | 2025-04-26 09:54 | XMS_ITS | Data Portability ---
Author Organization [place] - [facility] ADMIN Address [address] [place] [address] Assessment Encounter Date Assessment Date Assessment LastModified by Organization Details LastModified Time 04/05/2025 04/05/2025 Mrs. Cooper is a 49 year old female here for hospital follow up. She was seen at [facility] ER 03/30 for abdominal pain and nausea. [...] hyoscyami ne sulfate 0.125 mg tablet 2024 025 [facility], [address] [facility] [address] [place] [address] [place], [address], 04/05/2025 11:41:54 Patient TargetsNo targets recorded. Patient Instructions Encounter Date Encounter Id Patient Instructions Last Modified By Organization Details Last Modified Time 04/05/2025 [id number] f/u after procedure Not available 04/05/2025 11:48:02 [...] and Address Organization Details Last Updated DateTime 170.18 cm 22.7 kg/m2 00169.8 9 g 98.9 [degF] 97 % 97 % 122/92 mm[Hg] Yolanda [facility] & [place] 11:13:24 Social History None recorded. Functional Status None recorded. Mental Status None recorded. Family History Nothing Reported. Medical History No medical history recorded. Gynecological HistoryNo gynecological history recorded. Obstetrics History GPAL:G 0 P 0 0 0 0 Immunizations Vaccine Type Date Status Note Provider Nam e and Address Organization Details Recorded Time Tdap 09/15/2013 completed Not [facility] 04/05/2025 11:07:16 Tdap 02/12/2022 completed Not Available [facility] 04/05/2025 11:07:16 Past Encounters Encounter ID Performer Location Encounter Start Date Encounter Closed Date Diagnosis/Indication Diagnosis SNOMED-CT Code Diagnosis ICD10 Code Diagnosis IMO Codes Diagnosis Note [id number] PINO HESTER NP [facility] [address] [place] [address] 04/05/2025 11:06:36 04/05/2025 11:47:57 Nausea 291343098 R11.0 38756 - improved with zofran Lower abdominal pain 545 88084 R10.30 248365 - dicyclomin e helpful but causes itching Ileitis 72410651 K52.9 72418 - schedule colonoscop y as above Gastroesop hageal reflux disease without esophagitis 360954354 K21.9 704028 - continue Omeprazole - Schedule EGD- Elevation of head of the bed- Remain upright 2 to 3 hours after eating- Dietary modificati on: Avoidance of triggers such as fatty foods, caffeine, chocolate, spicy foods, food with high fat content, carbonated beverages, peppermint , acidic and citrus items Abdominal bloating 65929 9008 R14.0 16983 - disacchari de panel w/ EGD Liver cyst 38253706 K76. 89 341103 - 03/30 small 0.7 mm liver cyst noted on CT A/P- Discussed CT in 6 months to monitor growth Screening for malignant neoplasm of colon done 5039753444 45750 Z12.11 2838383605 - Due for 1st colonosocp y- family hx polyps Health Concerns Section Related Observation LastModified by Organization Detai ls LastModified Time None Recorded Concern Status LastModified by Organization Details LastModified Time None Recorded Advance Directives Directive None Recorded Payers Insurance Date Sequence Insurance Name Policy Number Policy Foy Covered Member ID Foy Member ID Guarantor Name 04/06/2025 1 *SELF PAY* Do eliu Cooper 04/21/2025 1 [place] [id number] Adrianna Cooper [id number] Adrianna Cooper Notes Date Note Type Note Provider Name and Address Organization Details Recorded Time 04/05/2025 text/html Mrs. Cooper is a 49 year old female here for hospital follow up. She was seen at [facility] ER 03/30 for abdominal pain and nausea. [...] denies any unintentional weight loss. PINO HESTER, MAINTENANCE DIRECTOR [address] , [place], [address], [facility] - [place] - [place] & [place] 04/05/2025 11:53:07 OBGyn Episode No OBEpisode recorded.
== END 2025-04-26 23:59 | disposition home or self-care (01) ==
LOC: RAD 09:49
PROVIDERS: Visit Provider Physician Assistant
DX: M25.511 Pain in right shoulder (principal)
CPT/HCPCS: 73030

== ENCOUNTER 2025-05-24 13:56 | Outpatient (CLI) | payer BC, SELFPAY ==
--- NOTE | 2025-05-24 14:00 | MR_ITS ---
FINAL REPORT TECHNIQUE: Multiplanar and multisequence imaging of the cervical spine was obtained. CLINICAL HISTORY: Cervical Spine Pain bilateral arm pain numbness tingling COMPARISON: None FINDINGS: There is straightening of the normal cervical lordosis. Vertebral body height is preserved. Signal intensity within the substance of the spinal cord is normal. No acute bone marrow edema. There is a small T2 hyperintense left thyroid nodule. C2/3: No focal disc herniation, central canal stenosis, or neural foraminal narrowing. C3/4: An annular bulge is present. No focal disc herniation, central canal stenosis, or neural foraminal narrowing. C4/5: There is a right paracentral disc protrusion superimposed on an annular bulge, which produces mild canal stenosis. C5/6: There is a broad-based left paracentral disc protrusion, which produces mild central canal stenosis and mild left neural foraminal narrowing. C6/7: No focal disc herniation, central canal stenosis, or neural foraminal narrowing. C7/T1: No focal disc herniation, central canal stenosis, or neural foraminal narrowing. IMPRESSION: 1. C4-5 right paracentral disc protrusion superimposed on an annular bulge with mild canal stenosis. 2. C5-6 broad-based left paracentral protrusion with mild canal stenosis and mild left neural foraminal narrowing. Reviewed, Interpreted and Dictated by Terra Rivera MD Transcribed by Chelsea Antoine Authenticated and [facility]
--- OUTSIDE RECORDS SUMMARY | 2025-05-24 14:07 | XMS_ITS | Continuity of Care Document ---
Author Organization [place], [facility] Address [address] [facility] [address] [place] [address] Assessment Encounter Date Assessment Date Assessment LastModified by Organization Details LastModified Time 05/06/2025 05/06/2025 Mrs. Cooper is a 49 year old female here for hospital follow up. She was seen at [facility] ER 03/30 for abdominal pain and nausea. [email or web address] Not available 05/06/2025 07:11:54 Plan of Treatment Reminders Order Date Submit Date Provider Last Modified By Organization Details Last Modified Time Details Appointments Establish ed Visit 15 min 2025 03:15P M PINO HESTER NP Not available Not available Not available Lab None recorded. Referral None recorded. Procedures None recorded. Surgeries None recorded. Imaging None recorded. Medication Orders esomepraz ole magnesium 40 mg capsule,d elayed release 2024 025 [facility]259 - boarding pass RX, [address] [place] [address], [place], [address], 05/06/2025 09:08:06 sucralfat e 1 gram tablet 2024 025 [facility], [address], [place], [address], 05/06/2025 09:08:06 Patient TargetsNo targets recorded. Patient Instructions Encounter Date Encounter Id Patient Instructions Last Modified By Organization Details Last Modified Time 05/06/[id number] f/u 12 week [email or web address] Not available 09:09:08 Reason for Referral None Reported. Results Created Date Observation Date Name Description Value Unit Range Abnormal Flag Note LastModifiedBy Organization Detail LastModifiedTime 04/22/2004/27/2025 PATHO LOGY SPECI MEN pathology specimen SEE REPORT Not Available [facility] ([facility]) [address], [place], [address], 04/27/2025 13:49:22 04/22/2005/05/2025 MISC LAB TEST misc lab test SEE REPORT SEE ATTAC HED REPOR T BIOAG ILYTI X DIAGN OSTIC S LABS, [address] [place] [phone] DIR: GERRY FORBES , PHD Not Available [facility] ([facility]) [address] [facility], [place], [address], 05/05/2025 01:05:01 Result Notes None recorded. Medical Equipment None Reported. Allergies Allergen ID Allergen Name Allergen Category Reaction Reaction Severity Criticality Documentation Date Start Date Code Code System Note Provider Name and Address Organization Details Recorded Time 531680 Product containin g penicilli n (product) medicatio n rash Not available low 05/06/2025 20305 8001 SNOMED Yolanda rueda, [place] - [facility] & [place] 08:30:51 121509 codeine medicatio n anaphylax is Not available Not available 05/06/2025 2670 RxNorm Yolanda rueda, [place] - [facility] & [place] 08:31:43 507692 morphine medicatio n Not available Not available high 05/06/2025 7052 RxNorm Yolanda rueda, [place] - [facility] & [place] 08:31:56 202652 busulfan medicatio n Not available Not available high 05/06/2025 1828 RxNorm Yolanda rueda, [place] - [facility] & [place] 08:32:13 824504 Substance with sulfonami de structure and antibacte rial mechanism of action (substanc e) medicatio n Not available Not available [facility] 05/06/2025 38883 8003 SNOMED Yolanda rueda [facility] & [place] 08:32:29 214714 Easprin medicatio n Not available Not available [facility] 05/06/2025 91163 4 RxNorm Yolanda rueda [facility] & [place] 08:32:41 Medications Name Sig Start Date Stop Date Status Note LastModified by Organization Details LastModified Time sucralfate 1 gram tablet TAKE 1 TABLET BY MOUTH 4 TIMES DAILY FOR STOMACH PAIN active Not Available Not Available No t Available dicyclomine 20 mg tablet TAKE 1 TABLET BY MOUTH 4 TIMES DAILY NEEDED FOR ABDOMINAL PAIN 04/05 completed Not Available Not Available Not Available hyoscyamine sulfate 0.125 mg tablet Take 1 tablet every 4 hours by oral route as needed for 30 days, for Abdominal pain. 2024 active Not Available Not Available Not Avai lable esomeprazol e magnesium 40 mg capsule,del ayed release TAKE 1 CAPSULE BY MOUTH ONCE DAILY FOR ACID REFLUX active Not Available Not Available No t Available gabapentin 100 mg capsule TAKE 1 CAPSULE BY MOUTH UP TO THREE TIMES DAILY NEEDED active Not Available Not Available No t Available ondansetron 4 mg disintegrat ing tablet DISSOLVE 1 TABLET IN MOUTH EVERY 6 TO 8 HOURS NEEDED active Not Available Not Available No t Available omeprazole once daily active Not Available Not Available No t Available sodium,pota ssium,mag sulfates 17.5 gram-3.13 gram-1.6 gram oral soln Take 6 ounces twice a day by oral route as directed for 1 day, for colonosco py. 04/28 completed Not Available Not Available Not Available Vitals Date Recorded Body height Body mass index (BMI) Body weight Body temperature Provider Name and Address Organization Details Last Updated DateTime 05/06/2025 170.18 cm 23 kg/m2 90522.08 g 97.5 [degF] Yolanda Duncan [facility] & [place] 05/06/2025 08:30:25 Social History None recorded. Functional Status None recorded. Mental Status None recorded. Family History Nothing Reported. Medical History No medical history recorded. Gynecological HistoryNo gynecological history recorded. Obstetrics History GPAL:G 0 P 0 0 0 0 Immunizations Vaccine Type Date Status Note Provider Nam e and Address Organization Details Recorded Time Tdap 09/15/2013 completed Not Available [facility] 05/06/2025 08:25:02 Tdap 02/12/2022 completed Not Available [facility] 05/06/2025 08:25:02 Past Encounters Encounter ID Performer Location Encounter Start Date Encounter Closed Date Diagnosis/Indication Diagnosis SNOMED-CT Code Diagnosis ICD10 Code Diagnosis IMO Codes Diagnosis Note [id number] PINO HESTER NP [facility] [address] [facility] [address] [place] [address] 05/06/2025 08:21:18 05/06/2025 09:00:47 Nausea 631800052 R11.0 28484 - improved with zofran Lower abdominal pain 545 21841 R10.30 403904 - Secondary to ischemic colitis- Improved but bowels irregular- Likely underlying constipati on too Screening for malignant neoplasm of colon done 4147979741 30191 Z12.11 9720060581 - family hx polyps- Colonoscop y 04/22/2025- ischemic colitis noted- prep fair- Repeat 3 year Ileitis 30916981 K52.9 82130 - ileitis on CT at hospital-T I bx was normal on colonoscop y Gastroesop hageal reflux disease without esophagitis 184242319 K21.9 743724 - continue Omeprazole - Schedule EGD- Elevation of head of the bed- Remain upright 2 to 3 hours after eating- Dietary modificati on: Avoidance of triggers such as fatty foods, caffeine, chocolate, spicy foods, food with high fat content, carbonated beverages, peppermint , acidic and citrus items Abdominal bloating 26024 9008 R14.0 61219 - secondary to constipati on- Start Mirlax Liver cyst 96635455 K76. 89 043225 - 03/30 small 0.7 mm liver cyst noted on CT A/P- Discussed CT in 6 months to monitor growth Health Concerns Section Related Observation LastModified by Organization Detai ls LastModified Time None Recorded Concern Status LastModified by Organization Details LastModified Time None Recorded Payers Encounter Date Sequence Insurance Name Policy Number Policy Foy Covered Member ID Foy Member ID Guarantor Name 05/06/2025 1 [employer] [id number] Adrianna Cooper [id number] Adrianna Cooper Notes Date Note Type Note Provider Name and Address Organization Details Recorded Time 05/06/2025 text/html PREVIOUS: Mrs. Cooper is a 49 year old female here for hospital follow up. She was seen at [facility] ER 03/30 for abdominal pain and [...] ago. She denies any unintentional weight loss. CURRENT:Mrs. Cooper is a 49 year old female who is here for follow up for abdominal pain and nausea. She underwent EGD and colonoscopy 04/202525. Grade A esophagitis was noted on EGD. 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 She reports continued issues with epigastric pain and irregular stools. Her stool will intermittently become pasty and difficult to pass. She takes collagen and supplement every morning which has helped some. She stopped Omeprazole because she felt it was wearing off. She is taking famotidine twice a day. I reviewed results and recommended a PPI for life to prevent progression of Barretts. We will try Esomeprazole to start. I will also do short coarse carafate. I think Mirlax intermittently may also help with her bowels. Her nausea is better. She denies any other GI symptoms. PINO HESTER, FRONT LINE LEADER [address], [place], [address], [facility] - [place] 05/06/2025 09:09:25 OBGyn Episode No OBEpisode recorded.
--- OUTSIDE RECORDS SUMMARY | 2025-05-24 14:07 | XMS_ITS | Continuity of Care Document ---
Author Organization [place] - [place] & [place], [facility] Address [address] [facility] [address] [place] [address] Assessment Encounter Date Assessment Date Assessment LastModified by Organization Details LastModified Time 04/05/2025 04/05/2025 Mrs. Cooper is a 49 year old female here for hospital follow up. She was seen at [facility] 03/30 for abdominal pain and nausea. [...] sulfate 0.125 mg tablet 2024 09 025 [facility], [address] [facility] [address] [place], [address], 04/05/2025 11:41:54 Patient TargetsNo targets recorded. Patient Instructions Encounter Date Encounter Id Patient Instructions Last Modified By Organization Details Last Modified Time 04/05/2025 [id number] f/u after procedure Not available 04/05/2025 11:48:02 [...] Name and Address Organization Details Recorded Time 556331 Product containin g penicilli n (product) medicatio n rash Not available [facility] 05/06/2025 99545 8001 SNOMED Yolanda William rueda, [place] - [facility] & [place] 5 08:30:51 863081 codeine medicatio n anaphylax is Not available Not available 05/06/2025 2670 RxNorm Yolanda rueda, [place] - [facility] & [place] 5 08:31:43 125077 morphine medicatio n Not available Not available [facility] 05/06/2025 7052 RxNorm Yolanda rueda, [place] - [facility] & [place] 5 08:31:56 894197 busulfan medicatio n Not available Not available [facility] 05/06/2025 1828 RxNorm Yolanda rueda, [place] - [facility] & [place] 5 08:32:13 482899 Substance with sulfonami de structure and antibacte rial mechanism of action (substanc e) medicatio n Not available Not available [facility] 05/06/2025 60192 8003 SNOMED Yolanda rueda, [place] - [place] [facility] & [place] 5 08:32:29 546796 Easprin medicatio n Not available Not available [facility] 05/06/2025 23897 4 RxNorm Yolanda rueda, [place] - [facility] & [place] 5 08:32:41 Medications Name Sig Start Date Stop [...] Updated DateTime 5 170.18 cm 22.7 kg/m2 12601.8 9 g 98.9 [degF] 97 % 97 % 122/92 mm[Hg] Yolanda [facility] & [place] 5 11:13:24 Social History None recorded. Functional Status None recorded. Mental Status None recorded. Family History Nothing Reported. Medical History No medical history recorded. Gynecological HistoryNo gynecological history recorded. Obstetrics History GPAL:G 0 P 0 0 0 0 Immunizations Vaccine Type Date Status Note Provider Nam e and Address Organization Details Recorded Time Tdap 09/15/2013 completed Not Available [facility] 05/06/2025 08:25:02 Tdap 02/12/2022 completed Not Available [facility] 05/06/2025 08:25:02 Past Encounters Encounter ID Performer Location Encounter Start Date Encounter Closed Date Diagnosis/Indication Diagnosis SNOMED-CT Code Diagnosis ICD10 Code Diagnosis IMO Codes Diagnosis Note [id number] PINO HESTER NP [facility] [address] [place] [address] 04/05/2025 11:06:36 04/05/2025 11:47:57 Nausea 032263278 R11.0 66416 - improved with zofran Lower abdominal pain 545 60432 R10.30 975004 - dicyclomin e helpful but causes itching Ileitis 95693310 K52.9 73961 - schedule colonoscop y as above Gastroesop hageal reflux disease without esophagitis 337466512 K21.9 599086 - continue Omeprazole - Schedule EGD- Elevation of head of the bed- Remain upright 2 to 3 hours after eating- Dietary modificati on: Avoidance of triggers such as fatty foods, caffeine, chocolate, spicy foods, food with high fat content, carbonated beverages, peppermint , acidic and citrus items Abdominal bloating 81248 9008 R14.0 76423 - disacchari de panel w/ EGD Liver cyst 63653093 K76. 89 932021 - 03/30 small 0.7 mm liver cyst noted on CT A/P- Discussed CT in 6 months to monitor growth Screening for malignant neoplasm of colon done 9879447007 51609 Z12.11 4579908105 - Due for 1st colonosocp y- family [...] hospital follow up. She was seen at [facility] 03/30 for abdominal pain and nausea. [...] denies any unintentional weight loss. PINO HESTER, LIBRARIAN HELPER [address], [place], [address], [place] - [facility] - [place] & [place] 04/05/2025 11:53:07 OBGyn Episode No OBEpisode recorded.
--- OUTSIDE RECORDS SUMMARY | 2025-05-24 14:08 | XMS_ITS | Clinical Summary ---
Author Organization Healthcare Address [address] [place] [address] Care Team Providers Care Bending Machine Operator Name Role Phone Adonis Grimes MD Primary Care Provider [phone] Allergies Active Allergy Reactions Criticality Noted Date [...] 10/30/2023 5:41 PM EDT Plan of Treatment Upcoming Encounters Date Type Department Care Team (Late st Contact Info) Description 07/05/2025 10:40 AM EST Office Visit [facility] [address] [place] [address] Adonis Patel MD [address] [place] [address] Health Maintenance Due Date Last Done Comments [facility]-Infant/Child/Adol SDOH Screenings 1975 [facility]- SDOH Screenings 1993 [facility]-Adult SDOH Screenings 1993 [facility]-Hepatitis B Vaccines (1 of 3 - 19+ 3-dose series) 1994 [facility]-Pap Smear 1996 [facility]-Cervical Cancer Screening 2005 [facility]-HPV/Cotest 2005 CT Colonography 2020 Colonoscopy 2020 FIT-DNA 2020 FIT 2020 FOBT 2020 Sigmoidoscopy 2020 [facility]-Colorectal Cancer Screening 2020 [facility]-Depression Screening 08/20/2023 08/20/2022 [id number] Vaccine (1 - season) 2025 [facility]-Influenza Vaccine (#1) 2025 [facility]-Breast Cancer Screening 2025 [facility]-Pneumococcal Vaccine: 50 + Years (1 of 1 - PCV) 2025 [facility]-Zoster Vaccines (1 of 2) 2025 [...] Reactive Non Reactive 10/30/2023 7:04 PM EDT [facility] Comment:Screening for HIV 1 & 2 antibodies, and P24 antigen is NONREACTIVE. No confirmatory testing is required. Blood Venous blood specimen / Unknown Venipuncture / Unknown 10/30/2023 6:23 PM EDT 10/30/2023 6:30 PM EDT us Summar Joe PA LAB BLOOD ORDERABLES Final Resu lt Performing Organization Address City/[facility]/ZIP Co de Phone Number HEALTHCARE [facility] [address] [place] [address] * Hepatitis C Antibody - ED (10/30/2023 6:23 PM EDT) Pathologist [facility] Hepatitis C Antibody Negative Negative 10/30/2023 7:01 PM EDT [facility] Blood Venous blood specimen / Unknown Venipuncture / Unknown 10/30/2023 6:23 PM EDT 10/30/2023 6:30 PM EDT us Summar Joe PA LAB BLOOD ORDERABLES Final Resu lt Performing Organization Address City/[facility]/ZIP Co de Phone Number [facility]ALTHCARE [facility] [address] [place] [address] from Last 3 Months or Most Recently Relevant to Health Maintenance Insurance ANTHEM Care Teams Bending Machine Operator Relationship Specialty Start Date End Date Adonis Griems MD [address] [place] [address] PCP - General 10/30/23
--- OUTSIDE RECORDS SUMMARY | 2025-05-24 14:08 | XMS_ITS | Data Portability ---
[facility] Address [address] [place] [id number] Assessment Encounter Date Assessment Date Assessment LastModified by Organization Details LastModified Time 04/05/2025 04/05/2025 Mrs. Cooper is a 49 year old female here for hospital follow up. She was seen at [facility] ER 03/30 for abdominal pain and nausea. Not available 03/31/2025 13:52:55 05/06/2025 05/06/2025 Mrs. Cooper is a 49 year old female here for hospital follow up. She was seen at [facility] ER 03/30 for abdominal pain and nausea. Not available 05/06/2025 07:11:54 Plan of Treatment Reminders Order Date Submit Date Provider Last Modified By Organization Details Last Modified Time Details Appointments Establish ed Visit 15 min 2025 03:15P Castro HESTER NP Not available Not available Not available Lab None recorded. Referral None recorded. Procedures None recorded. Surgeries None recorded. Imaging None recorded. Medication Orders esomepraz ole magnesium 40 mg capsule,d elayed release 2024 025 [facility], [address], [place], [address], 05/06/2025 09:08:06 sucralfat e 1 gram tablet 2024 025 [facility], [address], [place], [address], 05/06/2025 09:08:06 hyoscyami ne sulfate 0.125 mg tablet 2024 025 [facility] - [facility], [address], [place], [address], 04/05/2025 11:41:54 Patient TargetsNo targets recorded. Patient Instructions Encounter Date Encounter Id Patient Instructions Last Modified By Organization Details Last Modified Time 04/05/2025 [id number] f/u after procedure Not available 04/05/2025 11:48:02 05/06/[id number] f/u 12 week [email or web address] Not available 09:09:08 Reason for Referral None Reported. Results Created Date Observation Date Name Description Value Unit Range Abnormal Flag Note LastModifiedBy Organization Detail LastModifiedTime 04/22/2004/27/2025 PATHO LOGY SPECI MEN pathology specimen SEE REPORT Not Available [facility] ([facility]) [address] [facility], [place], [address], 04/27/2025 13:49:22 04/22/2005/05/2025 MISC LAB TEST misc lab test SEE REPORT SEE ATTAC HED REPOR T BIOAG ILYTI X DIAGN [facility]ST[facility], [address] [place] [phone] DIR: GERRY FORBES , PHD Not Available [facility] ([facility]) [address] [facility], [place], [address], 05/05/2025 01:05:01 03/31/2003/30/2025 CT, abdom en + pelvi s, w/ contr ast No observ ation record ed. [email or web address] l Not Available 03/31/2025 13:40:55 Result Notes None recorded. Medical Equipment None Reported. Allergies Allergen ID Allergen Name Allergen Category Reaction Reaction Severity Criticality Documentation Date Start Date Code Code System Note Provider Name and Address Organization Details Recorded Time 528464 Product containin g penicilli n (product) medicatio n rash Not available low 05/06/2025 20509 8001 SNOMED Yolanda rueda, [facility] & [place] 5 08:30:51 274575 codeine medicatio n anaphylax is Not available Not available 05/06/2025 2670 RxNorm Yolanda rueda, [facility] & [place] 5 08:31:43 643442 morphine medicatio n Not available Not available [facility] 05/06/2025 7052 RxNorm Yolanda rueda, [facility] & [place] 5 08:31:56 851733 busulfan medicatio n Not available Not available [facility] 05/06/2025 1828 RxNorm Yolanda rueda, [facility] & [place] 5 08:32:13 863875 Substance with sulfonami de structure and antibacte rial mechanism of action (substanc e) medicatio n Not available Not available [facility] 05/06/2025 34433 8003 SNOMED Yolanda rueda, [facility] & [place] 5 08:32:29 898294 Easprin medicatio n Not available Not available [facility] 05/06/2025 99566 4 RxNorm Yolanda rueda, [facility] & [place] 5 08:32:41 Medications Name Sig Start Date [...] Last Updated DateTime 170.18 cm 22.7 kg/m2 44528.8 9 g 98.9 [degF] 97 % 97 % 122/92 mm[Hg] [facility] & [place] 11:13:24 Date Recorded Body height Body mass index (BMI) Body weight Body temperature Provider Name and Address Organization Details Last Updated DateTime 05/06/2025 170.18 cm 23 kg/m2 71159.08 g 97.5 [degF] [facility] & [place] 05/06/2025 08:30:25 Social History None recorded. Functional Status None recorded. Mental Status None recorded. Family History Nothing Reported. Medical History No medical history recorded. Gynecological HistoryNo gynecological history recorded. Obstetrics History GPAL:G 0 P 0 0 0 0 Immunizations Vaccine Type Date Status Note Provider Nam e and Address Organization Details Recorded Time Tdap 09/15/2013 completed Not Available [facility] 05/06/2025 08:25:02 Tdap 02/12/2022 completed Not Available [facility] 05/06/2025 08:25:02 Past Encounters Encounter ID Performer Location Encounter Start Date Encounter Closed Date Diagnosis/Indication Diagnosis SNOMED-CT Code Diagnosis ICD10 Code Diagnosis IMO Codes Diagnosis Note [id number] PINO HESTER NP [facility] [address] [place] [address] 04/05/2025 11:06:36 04/05/2025 11:47:57 Nausea 125406838 R11.0 66033 - improved with zofran Lower abdominal pain 545 80044 R10.30 810502 - dicyclomin e helpful but causes itching Ileitis 79743084 K52.9 05243 - schedule colonoscop y as above Gastroesop hageal reflux disease without esophagitis 861255765 K21.9 379408 - continue Omeprazole - Schedule EGD- Elevation of head of the bed- Remain upright 2 to 3 hours after eating- Dietary modificati on: Avoidance of triggers such as fatty foods, caffeine, chocolate, spicy foods, food with high fat content, carbonated beverages, peppermint , acidic and citrus items Abdominal bloating 50168 9008 R14.0 76371 - disacchari de panel w/ EGD Liver cyst 79846112 K76. 89 395143 - 03/30 small 0.7 mm liver cyst noted on CT A/P- Discussed CT in 6 months to monitor growth Screening for malignant neoplasm of colon done 4434711282 28804 Z12.11 7015605171 - Due for 1st colonosocp y- family hx polyps [id number] PINO HESTER, MANGANESE WHEELER [facility] [address] [address] 05/06/2025 08:21:18 05/06/2025 09:00:47 Nausea 649165620 R11.0 71220 - improved with zofran Lower abdominal pain 545 56109 R10.30 257495 - Secondary to ischemic colitis- Improved but bowels irregular- Likely underlying constipati on too Screening for malignant neoplasm of colon done 5681508925 58115 Z12.11 0892206462 - family hx polyps- Colonoscop y 04/22/2025- ischemic colitis noted- prep fair- Repeat 3 year Ileitis 05250555 K52.9 73708 - ileitis on CT at hospital-T I bx was normal on colonoscop y Gastroesop hageal reflux disease without esophagitis 112609346 K21.9 138088 - continue Omeprazole - Schedule EGD- Elevation of head of the bed- Remain upright 2 to 3 hours after eating- Dietary modificati on: Avoidance of triggers such as fatty foods, caffeine, chocolate, spicy foods, food with high fat content, carbonated beverages, peppermint , acidic and citrus items Abdominal bloating 87800 9008 R14.0 69436 - secondary to constipati on- Start Mirlax Liver cyst 35898068 K76. 89 179103 - 03/30 small 0.7 mm liver cyst noted on CT A/P- Discussed CT in 6 months to monitor growth Health Concerns Section Related Observation LastModified by Organization Detai ls LastModified Time None Recorded Concern Status LastModified by Organization Details LastModified Time None Recorded Advance Directives Directive None Recorded Payers Insurance Date Sequence Insurance Name Policy Number Policy Foy Covered Member ID Fyo Member ID Guarantor Name 04/06/2025 1 *SELF PAY* Do eliu Cooper 05/18/2025 1 [facility] (O) [id number] Adrianna Cooper [id number] Adrianna Cooper Notes Date Note Type Note Provider Name and Address Organization Details Recorded Time 04/05/2025 text/html Mrs. Cooper is a 49 year old female here for hospital follow up. She was seen at [facility] ER 03/30 for abdominal pain [...] denies any unintentional weight loss. PINO HESTER, SOFYA [address], [place], [address], [place] - [facility] - [place] & [place] 04/05/2025 11:53:07 05/06/2025 text/html PREVIOUS: Mrs. Cooper is a 49 year old female here for hospital follow up. She was seen at [facility] ER 03/30 for abdominal pain [...] denies any other GI symptoms. PINO HESTER, MANGANESE WHEELER [address], [place], [address], [place] - [facility] - [place] & [place] 05/06/2025 09:09:25 OBGyn Episode No OBEpisode recorded.
== END 2025-05-24 23:59 | disposition home or self-care (01) ==
LOC: RAD 13:57
PROVIDERS: PCP Physician Assistant; Visit Provider Physician Assistant
DX: M50.221 Other cervical disc displacement at C4-C5 level (principal); M50.321 Other cervical disc degeneration at C4-C5 level; M48.02 Spinal stenosis, cervical region; M50.222 Other cervical disc displacement at C5-C6 level; M99.71 Connective tissue and disc stenosis of intervertebral foramina of cervical region
CPT/HCPCS: 72141

== ENCOUNTER 2025-05-31 13:35 | Outpatient (CLI) | payer BC, SELFPAY ==
--- NOTE | 2025-05-31 13:37 | XR_ITS ---
FINAL REPORT CLINICAL HISTORY: right wrist pain COMPARISON: 11/06/2022 FINDINGS: RIGHT WRIST THREE VIEW FINDINGS: Three views show no evidence of an acute, displaced fracture or dislocation of the visualized bony architecture. Small benign bone cyst in the lunate and triquetrum is similar to the prior study. The joint spaces appear normal. IMPRESSION: No acute bony abnormality. Reviewed, Interpreted and Dictated by Naveed Alcala MD Transcribed by Juliana Infante Authenticated and [facility]
--- OUTSIDE RECORDS SUMMARY | 2025-05-31 13:37 | XMS_ITS | Encounter Summary ---
Author Organization [facility] Address [address] [place] [address] Phone [email or web address] Care Team Providers Care Foundation Coordinator Name Role Phone Unavailable Primary Care Provider Unavailabl e Reason for Visit * Reason Onset Date Comments Occ Random Drug Screen 05/06/2025 Encounter Details Date Type Department Care Team (Late st Contact Info) Description 05/06/2025 Documentation [facility] [address] [place] [address] Francisco Holloway RN [address] [place] [address] Social History Tobacco Use Types Packs/Day Years Used Date Smoking Tobacco: Every Day Cigarettes Smokeless Tobacco: Never Intimate Partner Violence Answer Date R ecorded Insults You Not on file 08/09/2021 Threatens You Not on file 08/09/2021 Screams at You Not on file 08/09/2021 Physically Hurt Not on file 08/09/2021 Intimate Partner Violence Score Not on file 08/09/2021 Stress Answer Date Recorded Stress in your Life Not on file 05/27/2024 Dealing with Stress 3 05/27/2024 Comments Unknown Sex and Gender Information Value Date Recorded Sex Assigned at Not on file 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 Random drug screen from 05/06/2025 documented in this encounter Plan of Treatment Not on file documented as of this encounter Visit Diagnoses Not on filedocumented in this encounter
--- OUTSIDE RECORDS SUMMARY | 2025-05-31 13:37 | XMS_ITS | Clinical Summary ---
Author Organization Healthcare Address [address] [place] [address] Care Team Providers Care Textile Engraver Name Role Phone Adonis Grimes MD Primary Care Provider [phone] Allergies Active Allergy Reactions Criticality Noted Date [...] Description 07/05/2025 10:40 AM EST Office Visit [facility] [address] [place] [address] Adonis Patel MD [address] [place] [address] Health Maintenance Due Date Last Done Comments [facility]-Infant/Child/Adol SDOH Screenings 1975 [facility]- SDOH Screenings 1993 [facility]-Adult SDOH Screenings 1993 [facility]-Hepatitis B Vaccines (1 of 3 - 19+ 3-dose series) 1994 [facility]-Pap Smear 1996 [facility]-Cervical Cancer Screening 2005 [facility]-HPV/Cotest 2005 CT Colonography 2020 Colonoscopy 2020 FIT-DNA 2020 FIT 2020 FOBT 2020 Sigmoidoscopy 2020 [facility]-Colorectal Cancer Screening 2020 [facility]-Depression Screening 08/20/2023 08/20/2022 [id number] Vaccine (1 - season) 2025 [facility]-Influenza Vaccine [...] ORDERABLES Final Resu lt Performing Organization Address City/[facility]/ZIP Co de Phone Number [facility] [address] [place] [address] * Hepatitis C Antibody - ED (10/30/2023 6:23 PM EDT) Pathologist [facility] Hepatitis C Antibody Negative Negative 10/30/2023 7:01 PM EDT [facility] Blood Venous blood specimen / Unknown Venipuncture / Unknown 10/30/2023 6:23 PM EDT 10/30/2023 6:30 PM EDT us [facility] LAB BLOOD ORDERABLES Final Resu lt Performing Organization Address City/[facility]/ZIP Co de Phone Number [facility] [address] [place] [address] from Last 3 Months or Most Recently Relevant to Health Maintenance Insurance [employer] Care Teams Textile Engraver Relationship Specialty Start Date End Date Adonis Grimes MD [address] [place] [address] PCP - General 10/30/23
--- OUTSIDE RECORDS SUMMARY | 2025-05-31 13:37 | XMS_ITS | Clinical Summary ---
Author Organization [facility] Address [address] [place] [address] Phone [email or web address] Care Team Providers Care Mash Grinder Name Role Phone Unavailable Primary Care Provider Unavailabl e Allergies Active Allergy Reactions Criticality Noted Date Comments Aspirin Shortness of breath High 02/08/2025 Morphine Shortness of breath High 02/08/2025 Morphine And Codeine Shortness of breath High 2024 Penicillins Rash Low 02/08/2025 Sulfa Antibiotics Shortness of breath High Medications HYDROXYZINE HCL PO Take by mouth. 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 Gender Identity Not on file Sexual Orientation Not on file Last Filed Vital Signs Vital Sign Reading Time Taken Comments Blood Pressure 122/68 02/08/2025 10:16 AM EDT Pulse 73 02/08/2025 10:16 AM EDT Temperature 36.7 C (98 F) 02/08/2025 10:16 AM EDT Respiratory Rate 20 02/08/2025 10:16 AM EDT Oxygen Saturation 99% 02/08/2025 10:16 AM EDT Inhaled Oxygen Concentration - - Weight 80.3 kg (177 lb) 02/08/2025 10:16 AM EDT Height 170.2 cm (5' 7 ) 02/08/2025 10:16 AM EDT Body Mass Index 27.72 02/08/2025 10:16 AM EDT Plan of Treatment Health Maintenance Due Date Last Done Comments CT Colonography 1975 Cervical Cancer Screening Combo 1975 Colonoscopy 1975 Colorectal Cancer Screening Combo 1975 DNA Cologuard 1975 Dental Cleaning/Exam 1975 FIT or FOBT Test 1975 HIV Screening 1975 HPV only / HPV + Pap 1975 Hepatitis C Screening 1975 Pap only testing 1975 Sigmoidoscopy 1975 Hep B Infection Screening - Triple Screen 1993 Hepatitis A Immunization (1 of 2 - Risk 2-dose series) 1994 Hepatitis B Immunization (1 of 3 - 19+ 3-dose series) 1994 Pneumococcal: 50+ Years (1 o f 2 - PCV) 1994 Breast Cancer Screening 2005 Covid-19 Immunization ( - season) 2025 Influenza Immunization (#1) 2025 Zoster Immunization (1 of 2) 2025 Annual Preventive Exam 02/08/2026 , 08/09/2021 Tetanus Diphtheria and Pertussis Immunization (3 - Td or Tdap) 02/13/2032 02/12/2022, 09/15/2013 HIB Immunization Aged Out No longer e ligible based on patient's age to complete this topic HPV Immunization Aged Out No longer e ligible based on patient's age to complete this topic Polio Immunization Aged Out No longer eligible based on patient's age to complete this topic
== END 2025-05-31 23:59 | disposition home or self-care (01) ==
LOC: RAD 13:35
PROVIDERS: Visit Provider Physician Assistant
DX: M25.531 Pain in right wrist (principal); M85.48 Solitary bone cyst, other site
CPT/HCPCS: 73110